=== PATIENT | female | born 1965 | race Caucasian/White ===

== ENCOUNTER 2022-10-18 16:34 | Inpatient (IN) ==
[2022-10-18] MEDS ORDERED: ADENOSINE IV SOLN 3 MG/ML 2 ML VIAL IV STA (16:59)
[2022-10-18] MEDS ORDERED: SODIUM CHLORIDE 0.9% 1000ML 1,000 ML IV SCH (17:00)
--- NOTE | 2022-10-18 17:03 | Emergency Department Note ---
Impression & Plan Acute hypoxemic respiratory failure, Multifocal pneumonia, SOB (shortness of breath), RSV (respiratory syncytial virus infection), Prolonged QT interval, SVT (supraventricular tachycardia), Acute dehydration, COPD exacerbation ED Provider Note NAME: JONATHAN HERNANDEZ AGE: 57 SEX: F : 1965 ARRIVES VIA: Walk-In INFORMANT: [Patient][, ] ED PROVIDER(S): [Kevin Knowles MD] Chief Complaint: SOB HPI: Patient presents due to concern for shortness of breath. The patient states that she has felt this way for approximately 4 days in duration. The patient denies any fevers. The patient is a smoker and does have a known history of COPD. 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 Patient has had shortness of breath with exertion no orthopnea no leg swelling no history of DVT or PE. The patient denies any recent surgeries procedures or hospitalizations. 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 They have had upper respiratory type symptoms but without a clear diagnosis. ROS: See HPI for pertinent positives and negatives. A total of 10 systems were reviewed and otherwise negative. Past medical history: See below Surgical history: See below Social history: See below Physical Exam: GENERAL: Moderate distresss, tachypnea EYE EXAM: Normal conjunctiva. PERRL, no anisocoria and EOM's grossly intact w/o pain. NECK: Supple, no nuchal rigidity, no adenopathy, non-tender. No signs of meningismus. FROM of the neck with good chin to chest and neck extension. No stridor. LUNGS: Scant wheezes, decreased BS through, tachypne noted. HEART: Tachycardic and regular, no MRG. ABDOMEN: Abdomen soft, non-tender, normo-active bowel sounds, no masses, no rebound or guarding. BACK: No CVA TTP. SKIN: No rashes and no bruising. UPPER EXTREMITIES: Upper extremities are grossly normal. LOWER EXTREMITIES: Grossly normal, no edema. NEURO EXAM: A&O x3, cranial nerves II-XII grossly intact, normal speech, moves all 4 extremities. Differential diagnoses: Reactive airway disease, pneumonia, pneumothorax, COPD, CHF, infections, cardiac ischemia, pulmonary embolism, musculoskeletal, gastrointestinal, as well as other pathologies. Course: Patient was seen and evaluated the bedside. Full history physical exam was performed. EKG interpreted by me SVT, rate of 171, normal axis, ST depressions in the lateral leads EKG interpreted by me Sinus tachycardia, rate of 161, prolonged QTC, normal axis, ST depressions in the lateral leads. EKG interpreted by me Sinus tachycardia, rate of 159, prolonged QTC, normal axis, ST depressions in the lateral leads. Imaging Studies: See Below Cardiac monitoring: An order was placed for continuous cardiac monitoring. The monitor shows a rate of 165 with tachycardic and regular rhythm. MDM: Patient was seen due to concern for shortness of breath. The patient's initial EKG did show a regular rhythm but was very tachycardic and then the patient did have an increase in her rate into the 230s and 240s. Regular monomorphic. The patient was given 6 of adenosine. The patient's rate did improve back into the 160s. It does appear regular and monomorphic maybe a sinus tachycardia at this time. Patient was ordered IV fluids breathing treatments Xopenex to avoid beta adrenergic stimulation. The patient was also ordered antibiotics and blood work. Patient did have blood cultures and lactate. The patient's blood work showed a white count of 18 with a normal H&H and platelet count. The patient's kidney function was unremarkable. Mild hypokalemia. RSV positive. Lactate and Pro-Jose normal. Chest x-ray does show possible pneumonia. The patient did require oxygenation with 2 L nasal cannula. Patient was reassessed multiple times and was clinically improving on exam. I did speak the on-call hospitalist Emma Albarran PA-C and the patient was admitted to the medicine service. Critical Care: I have personally spent 79 minutes of critical care time in direct management of this patient. This includes bedside care, interpretation of diagnostic studies, and testing, discussion with consultants, patient, and family members, and other require inpatient management activities. This 79 minutes is in excess of all separately billable procedures. 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 100 mcg-umeclid 1 ea inhalation DAILY 10/18/22 10/18/22 62.5 mcg-vilant 25 mcg inhalat.powder (Trelegy Ellipta) ipratropium 0.5 mg-albuterol 3 mg 3 ml inhalation Q6 PRN 10/18/22 10/18/22 (2.5 mg base)/3 mL nebulization cough,shortness of breath soln levalbuterol tartrate 45 1 puff inhalation Q4 PRN Wheezing 10/18/22 10/18/22 mcg/actuation aerosol inhaler Results & Data (ED) Vital Signs Vital Signs - 24 hr 10/18/22 16:46 Temperature 37.3 C Temperature Source Temporal Artery Scan Pulse Rate 167 H Pulse Rhythm Irregular Respiratory Rate 24 Respiratory Effort / Characteristics Non-Labored Respiratory Depth Normal Blood Pressure 131/73 Blood Pressure Mean 92 Blood Pressure Position Sitting Pulse Oximetry 87 L Oxygen Delivery Method Room Air Sepsis Recent Fever Within 48 Hours Yes Sepsis New/Unexplained Change in Mental Status No Sepsis Action Taken by Nursing Physician Notified Home Medications Current Medication List: was personally reviewed by me Laboratory Data Attestation: I reviewed the patient's lab results. Result diagrams: 10/19/22 07:39 10/20/22 06:06 Lab Results 10/18/22 10/18/22 10/18/22 Range/Units 17:00 17:00 17:00 WBC 18.87 H (4.8-10.8) K/ul RBC 5.23 H (3.93-5.22) M/uL Hgb 15.2 (12.0-16.0) g/dl Hct 44.0 (34.1-44.9) % MCV 84.1 (80.0-100.0) fL MCH 29.1 (25.0-34.0) pg MCHC 34.5 (32.0-36.0) g/dL RDW Std Deviation 41.6 (36.4-46.3) fL RDW Coeff of Tori 13.4 (11.5-14.5) % Plt Count 344 (130-400) K/uL MPV 9.6 (9.4-12.3) fL Immature Gran % (Auto) 0.5 % Neut % (Auto) 86.6 % Lymph % (Auto) 6.5 % [place] % (Auto) 5.9 % Eos % (Auto) 0.2 % Baso % (Auto) 0.3 % Neut # (Auto) 16.33 H (1.4-6.5) K/uL Lymph # (Auto) 1.23 (1.2-3.4) K/uL [place] # (Auto) 1.11 H (0.24-0.82) K/uL Eos # (Auto) 0.04 (0-0.50) K/uL Baso # (Auto) 0.06 (0-0.2) K/uL Immature Gran # (Auto) 0.10 H (0.00-0.02) K/uL PT 12.6 H (9.0-12.0) Seconds INR 1.2 H (0.9-1.1) Sodium 132 L (136-145) mmol/L Potassium 3.4 L (3.5-5.1) mmol/L Chloride 96 L (98-107) mmol/L Carbon Dioxide 23 (21-32) mmol/L Anion Gap 13 H (3-11) BUN 10 (6-23) mg/dl Creatinine 0.91 (0.6-1.2) mg/dl Est Cr Clr Drug Dosing 87.0 ml/min Est GFR ( Amer) 81.2 ml/min Est GFR (Non-Af Amer) 70.0 ml/min BUN/Creatinine Ratio 11.0 (10-20) Glucose 129 H (70-99(Fasting)) mg/dl Lactate (0.4-2.0) mmol/L Calcium 8.7 (8.5-10.1) mg/dl Magnesium 1.7 (1.7-2.4) mg/dl Total Bilirubin 0.7 (0.2-1.0) mg/dl AST 22 (13-39) U/L ALT 17 (7-52) U/L Alkaline Phosphatase 96 (34-104) U/L Troponin I High Sens 9.7 (0-14) pg/ml Total Protein 7.6 (6.0-8.3) gm/dl Albumin 3.9 (3.4-5.0) gm/dl Globulin 3.7 (2.5-4.0) gm/dl Albumin/Globulin Ratio 1.1 (0.9-2) Procalcitonin (0-0.5) ng/ml TSH (0.300-4.500) uIu/ml Adenovirus (PCR) (NotDetected) B. pertussis DNA (PCR) (NotDetected) B.parapertussis DNA PCR (NotDetected) C. pneumoniae DNA (PCR) (NotDetected) Coronavirus OC43 (PCR) (NotDetected) Coronavirus HKU1 (PCR) (NotDetected) Coronavirus 229E (PCR) (NotDetected) SARS-CoV-2 (PCR) (NotDetected) Coronavirus NL63 (PCR) (NotDetected) Human Metapneumovir PCR (NotDetected) Influenza Type A (PCR) (NotDetected) Influenza Type B (PCR) (NotDetected) M. pneumoniae (PCR) (NotDetected) Parainfluenza 1 (PCR) (NotDetected) Parainfluenza 2 (PCR) (NotDetected) Parainfluenza 3 (PCR) (NotDetected) Parainfluenza 4 (PCR) (NotDetected) RSV (PCR) (NotDetected) Entero/Rhino (PCR) (NotDetected) 10/18/22 10/18/22 10/18/22 Range/Units 17:00 17:00 17:00 WBC (4.8-10.8) K/ul RBC (3.93-5.22) M/uL Hgb (12.0-16.0) g/dl Hct (34.1-44.9) % MCV (80.0-100.0) fL MCH (25.0-34.0) pg MCHC (32.0-36.0) g/dL RDW Std Deviation (36.4-46.3) fL RDW Coeff of Tori (11.5-14.5) % Plt Count (130-400) K/uL MPV (9.4-12.3) fL Immature Gran % (Auto) % Neut % (Auto) % Lymph % (Auto) % [place] % (Auto) % Eos % (Auto) % Baso % (Auto) % Neut # (Auto) (1.4-6.5) K/uL Lymph # (Auto) (1.2-3.4) K/uL [place] # (Auto) (0.24-0.82) K/uL Eos # (Auto) (0-0.50) K/uL Baso # (Auto) (0-0.2) K/uL Immature Gran # (Auto) (0.00-0.02) K/uL PT (9.0-12.0) Seconds INR (0.9-1.1) Sodium (136-145) mmol/L Potassium (3.5-5.1) mmol/L Chloride (98-107) mmol/L Carbon Dioxide (21-32) mmol/L Anion Gap (3-11) BUN (6-23) mg/dl Creatinine (0.6-1.2) mg/dl Est Cr Clr Drug Dosing ml/min Est GFR ( Amer) ml/min Est GFR (Non-Af Amer) ml/min BUN/Creatinine Ratio (10-20) Glucose (70-99(Fasting)) mg/dl Lactate 1.2 (0.4-2.0) mmol/L Calcium (8.5-10.1) mg/dl Magnesium (1.7-2.4) mg/dl Total Bilirubin (0.2-1.0) mg/dl AST (13-39) U/L ALT (7-52) U/L Alkaline Phosphatase (34-104) U/L Troponin I High Sens (0-14) pg/ml Total Protein (6.0-8.3) gm/dl Albumin (3.4-5.0) gm/dl Globulin (2.5-4.0) gm/dl Albumin/Globulin Ratio (0.9-2) Procalcitonin 0.22 (0-0.5) ng/ml TSH 1.686 (0.300-4.500) uIu/ml Adenovirus (PCR) (NotDetected) B. pertussis DNA (PCR) (NotDetected) B.parapertussis DNA PCR (NotDetected) C. pneumoniae DNA (PCR) (NotDetected) Coronavirus OC43 (PCR) (NotDetected) Coronavirus HKU1 (PCR) (NotDetected) Coronavirus 229E (PCR) (NotDetected) SARS-CoV-2 (PCR) (NotDetected) Coronavirus NL63 (PCR) (NotDetected) Human Metapneumovir PCR (NotDetected) Influenza Type A (PCR) (NotDetected) Influenza Type B (PCR) (NotDetected) M. pneumoniae (PCR) (NotDetected) Parainfluenza 1 (PCR) (NotDetected) Parainfluenza 2 (PCR) (NotDetected) Parainfluenza 3 (PCR) (NotDetected) Parainfluenza 4 (PCR) (NotDetected) RSV (PCR) (NotDetected) Entero/Rhino (PCR) (NotDetected) 10/18/22 Range/Units 17:50 WBC (4.8-10.8) K/ul RBC (3.93-5.22) M/uL Hgb (12.0-16.0) g/dl Hct (34.1-44.9) % MCV (80.0-100.0) fL MCH (25.0-34.0) pg MCHC (32.0-36.0) g/dL RDW Std Deviation (36.4-46.3) fL RDW Coeff of Tori (11.5-14.5) % Plt Count (130-400) K/uL MPV (9.4-12.3) fL Immature Gran % (Auto) % Neut % (Auto) % Lymph % (Auto) % [place] % (Auto) % Eos % (Auto) % Baso % (Auto) % Neut # (Auto) (1.4-6.5) K/uL Lymph # (Auto) (1.2-3.4) K/uL [place] # (Auto) (0.24-0.82) K/uL Eos # (Auto) (0-0.50) K/uL Baso # (Auto) (0-0.2) K/uL Immature Gran # (Auto) (0.00-0.02) K/uL PT (9.0-12.0) Seconds INR (0.9-1.1) Sodium (136-145) mmol/L Potassium (3.5-5.1) mmol/L Chloride (98-107) mmol/L Carbon Dioxide (21-32) mmol/L Anion Gap (3-11) BUN (6-23) mg/dl Creatinine (0.6-1.2) mg/dl Est Cr Clr Drug Dosing ml/min Est GFR ( Amer) ml/min Est GFR (Non-Af Amer) ml/min BUN/Creatinine Ratio (10-20) Glucose (70-99(Fasting)) mg/dl Lactate (0.4-2.0) mmol/L Calcium (8.5-10.1) mg/dl Magnesium (1.7-2.4) mg/dl Total Bilirubin (0.2-1.0) mg/dl AST (13-39) U/L ALT (7-52) U/L Alkaline Phosphatase (34-104) U/L Troponin I High Sens (0-14) pg/ml Total Protein (6.0-8.3) gm/dl Albumin (3.4-5.0) gm/dl Globulin (2.5-4.0) gm/dl Albumin/Globulin Ratio (0.9-2) Procalcitonin (0-0.5) ng/ml TSH (0.300-4.500) uIu/ml Adenovirus (PCR) Not Detected (NotDetected) B. pertussis DNA (PCR) Not Detected (NotDetected) B.parapertussis DNA PCR Not Detected (NotDetected) C. pneumoniae DNA (PCR) Not Detected (NotDetected) Coronavirus OC43 (PCR) Not Detected (NotDetected) Coronavirus HKU1 (PCR) Not Detected (NotDetected) Coronavirus 229E (PCR) Not Detected (NotDetected) SARS-CoV-2 (PCR) Not Detected (NotDetected) Coronavirus NL63 (PCR) Not Detected (NotDetected) Human Metapneumovir PCR Not Detected (NotDetected) Influenza Type A (PCR) Not Detected (NotDetected) Influenza Type B (PCR) Not Detected (NotDetected) M. pneumoniae (PCR) Not Detected (NotDetected) Parainfluenza 1 (PCR) Not Detected (NotDetected) Parainfluenza 2 (PCR) Not Detected (NotDetected) Parainfluenza 3 (PCR) Not Detected (NotDetected) Parainfluenza 4 (PCR) Not Detected (NotDetected) RSV (PCR) DETECTED A* (NotDetected) Entero/Rhino (PCR) Not Detected (NotDetected) Administered Medications Acetaminophen (Acetaminophen 325 Mg Tab) 650 mg PO Q4H PRN PRN Reason: Pain or Fever Stop: 11/17/22 23:09 Last Admin: 10/19/22 16:54 Dose: 650 mg Documented By: SAMAN Enoxaparin Sodium (Enoxaparin Inj 40 Mg/0.4 Ml Syr) 40 mg SQ Q24H ULISES Stop: 11/18/22 05:59 Last Admin: 10/20/22 05:05 Dose: 40 mg Documented By: Admin: 10/19/22 05:19 Dose: 40 mg Documented By: ANTHONY Escitalopram Oxalate (Escitalopram Oxalate 10 Mg Tab) 10 mg PO QAM ULISES Stop: 11/18/22 08:59 Last Admin: 10/20/22 08:18 Dose: Not Given Documented By: Admin: 10/19/22 09:03 Dose: 10 mg Documented By: SAMAN Famotidine (Famotidine 20 Mg Tab) 20 mg PO HS PRN PRN Reason: Heartburn Stop: 11/17/22 23:09 Last Admin: 10/19/22 21:51 Dose: 20 mg Documented By: ANTHONY Fluticasone Furoate (Fluticasone Furoate 100mcg 14 Puffs/Inhaler) 1 puffs INH DAILY ULISES Stop: 11/18/22 08:59 Last Admin: 10/20/22 08:19 Dose: 1 puffs Documented By: Admin: 10/19/22 09:04 Dose: 1 puffs Documented By: SAMAN Guaifenesin/Codeine Phosphate (Guaifenesin/Codeine 100mg/10mg 5ml Udc) 10 ml PO Q6H PRN PRN Reason: Cough Stop: 11/18/22 01:27 Last Admin: 10/20/22 17:12 Dose: 10 ml Documented By: Admin: 10/20/22 05:13 Dose: 10 ml Documented By: Admin: 10/19/22 21:50 Dose: 10 ml Documented By: ANTHONY Ipratropium [place] (Ipratropium [place] Neb Soln 0.02% 2.5 Ml Vial) 0.5 mg INH QIDR PRN PRN Reason: sob/wheezing Stop: 11/17/22 23:09 Last Admin: 10/20/22 14:17 Dose: 0.5 mg Documented By: TIMA Levalbuterol HCl (Levalbuterol Tartrate 15 Gm Hfa.Aer.Ad) 1 puffs INH Q4 PRN PRN Reason: Wheezing Stop: 11/17/22 23:09 Last Admin: 10/20/22 13:24 Dose: 1 puffs Documented By: ASHIA Levalbuterol HCl (Levalbuterol Hcl 1.25 Mg/3 Ml Neb) 1.25 mg NEB Q4H PRN; Pro tocol PRN Reason: Shortness Of Breath Or Wheezing Stop: 11/17/22 23:09 Last Admin: 10/20/22 00:04 Dose: 1.25 mg Documented By: Admin: 10/19/22 02:39 Dose: 1.25 mg Documented By: HUMA Levalbuterol HCl (Levalbuterol Hcl 0.63 Mg/3 Ml Neb) 0.63 mg NEB QIDR PRN PRN Reason: sob/wheezing Stop: 11/17/22 23:09 Last Admin: 10/20/22 14:17 Dose: 0.63 mg Documented By: TIMA Potassium Chloride (Potassium Chloride Crtab 20 Meq Tabcr) 20 meq PO QAM ULISES Stop: 11/19/22 08:59 Last Admin: 10/20/22 10:33 Dose: 20 meq Documented By: DLN Prednisone (Prednisone 20 Mg Tab) 40 mg PO DAILY ULISES Stop: 11/19/22 11:44 Last Admin: 10/20/22 12:51 Dose: 40 mg Documented By: SETH Umeclidinium/Vilanterol (Umeclidinium/Vilanterol 62.5/25mcg 7 Puffs/Inhaler) 1 puffs INH DAILY ULISES Stop: 11/18/22 08:59 Last Admin: 10/20/22 08:19 Dose: 1 puffs Documented By: Admin: 10/19/22 09:04 Dose: 1 puffs Documented By: SAMAN Discontinued Medications Adenosine (Adenosine Iv Soln 3 Mg/Ml 2 Ml Vial) 6 mg IV NOW STA Stop: 10/18/22 17:00 Last Admin: 10/18/22 17:08 Dose: 6 mg Documented By: TARA Guaifenesin/Codeine Phosphate (Guaifenesin/Codeine 100mg/10mg 5ml Udc) 5 ml PO Q6H PRN PRN Reason: Cough Stop: 11/18/22 01:27 Last Admin: 10/19/22 09:51 Dose: 5 ml Documented By: Admin: 10/19/22 01:45 Dose: 5 ml Documented By: ANTHONY Sodium Chloride (Nss 1000ml) 1,000 mls @ 999 mls/hr IV .Q1H1M ULISES Stop: 10/18/22 18:00 Last Infusion: 10/18/22 18:25 Dose: 0 mls/hr Documented By: Admin: 10/18/22 17:24 Dose: 999 mls/hr Documented By: SALOMÓN Sodium Chloride (Nss 1000ml) 1,000 mls @ 999 mls/hr IV .Q1H1M ONE Stop: 10/18/22 18:15 Last Infusion: 10/18/22 18:25 Dose: 0 mls/hr Documented By: Admin: 10/18/22 17:24 Dose: 999 mls/hr Documented By: SALOMÓN Sodium Chloride (Nss 1000ml) 1,000 mls @ 999 mls/hr IV .Q1H1M ONE Stop: 10/18/22 19:16 Last Infusion: 10/18/22 19:47 Dose: 0 mls/hr Documented By: Admin: 10/18/22 18:46 Dose: 999 mls/hr Documented By: SALOMÓN Cefepime HCl (Maxipime) 2,000 mg in 20 mls @ 5 mls/min IV NOW STA; Protocol Stop: 10/18/22 18:41 Last Admin: 10/18/22 18:46 Dose: 5 mls/min Documented By: SALOMÓN Sodium Chloride (Nss 1000ml) 1,000 mls @ 125 mls/hr IV .Q8H ULISES Stop: 11/17/22 23:09 Last Infusion: 10/19/22 21:30 Dose: 0 mls/hr Documented By: Admin: 10/19/22 16:54 Dose: 125 mls/hr Documented By: Infusion: 10/19/22 16:54 Dose: 125 mls/hr Documented By: Admin: 10/19/22 09:08 Dose: 125 mls/hr Documented By: Infusion: 10/19/22 08:28 Dose: 125 mls/hr Documented By: Admin: 10/19/22 00:28 Dose: 125 mls/hr Documented By: ANTHONY Doxycycline Hyclate 100 mg/ (Dextrose) 110 mls @ 50 mls/hr IV Q12H ULISES Stop: 10/25/22 23:29 Last Admin: 10/20/22 12:52 Dose: Not Given Documented By: Infusion: 10/20/22 02:04 Dose: 0 mls/hr Documented By: Admin: 10/19/22 23:42 Dose: 50 mls/hr Documented By: Infusion: 10/19/22 13:47 Dose: 0 mls/hr Documented By: Admin: 10/19/22 11:07 Dose: 50 mls/hr Documented By: Infusion: 10/19/22 02:16 Dose: 0 mls/hr Documented By: Admin: 10/18/22 23:59 Dose: 50 mls/hr Documented By: NILSA Ceftriaxone Sodium 2,000 mg/ (Dextrose) 70 mls @ 100 mls/hr IV Q24H ULISES; Protocol Stop: 10/26/22 05:59 Last Infusion: 10/20/22 06:05 Dose: 0 mls/hr Documented By: Admin: 10/20/22 05:07 Dose: 100 mls/hr Documented By: Infusion: 10/19/22 06:01 Dose: 0 mls/hr Documented By: Admin: 10/19/22 05:21 Dose: 100 mls/hr Documented By: ANTHONY Magnesium Sulfate/Dextrose (Magnesium Sulfate / D5w) 1 gm in 100 mls @ 50 mls/hr IV ONE ONE Stop: 10/19/22 01:09 Last Infusion: 10/19/22 01:43 Dose: 0 mls/hr Documented By: Admin: 10/18/22 23:54 Dose: 50 mls/hr Documented By: NILSA Methylprednisolone 40 mg/ (Syringe) 0.64 mls @ 1.5 mls/min IV Q8H [facility] Stop: 11/18/22 05:59 Last Admin: 10/20/22 05:05 Dose: 1.5 mls/min Documented By: Admin: 10/19/22 21:50 Dose: 1.5 mls/min Documented By: Admin: 10/19/22 14:02 Dose: 1.5 mls/min Documented By: Admin: 10/19/22 05:19 Dose: 1.5 mls/min Documented By: ANTHONY Ioversol (Optiray 320 500ml) 125 ml IV ONCE ONE Stop: 10/18/22 22:48 Last Admin: 10/18/22 22:48 Dose: 112 ml Documented By: MALCOLM Ipratropium [place] (Ipratropium [place] Neb Soln 0.02% 2.5 Ml Vial) 0.5 mg INH QIDR ULISES Stop: 11/17/22 23:09 Last Admin: 10/20/22 11:11 Dose: Not Given Documented By: Admin: 10/20/22 05:17 Dose: 0.5 mg Documented By: Admin: 10/19/22 17:41 Dose: 0.5 mg Documented By: Admin: 10/19/22 14:54 Dose: 0.5 mg Documented By: Admin: 10/19/22 11:04 Dose: 0.5 mg Documented By: Admin: 10/19/22 07:40 Dose: 0.5 mg Documented By: Admin: 10/18/22 23:58 Dose: 0.5 mg Documented By: NILSA Levalbuterol HCl (Levalbuterol Hcl 1.25 Mg/3 Ml Neb) 1.25 mg NEB NOW STA; Protocol Stop: 10/18/22 17:16 Last Admin: 10/18/22 17:24 Dose: 1.25 mg Documented By: SALOMÓN Levalbuterol HCl (Levalbuterol Hcl 0.63 Mg/3 Ml Neb) 0.63 mg NEB QIDR ULISES Stop: 11/17/22 23:09 Last Admin: 10/20/22 11:11 Dose: Not Given Documented By: Admin: 10/20/22 05:17 Dose: 0.63 mg Documented By: Admin: 10/19/22 17:41 Dose: 0.63 mg Documented By: Admin: 10/19/22 14:55 Dose: 0.63 mg Documented By: Admin: 10/19/22 11:04 Dose: 0.63 mg Documented By: Admin: 10/19/22 07:40 Dose: 0.63 mg Documented By: Admin: 10/19/22 00:49 Dose: 0.63 mg Documented By: ASHLEE Methylprednisolone (Methylprednisolone 125 Mg/2 Ml Vial) 125 mg IV NOW STA Stop: 10/18/22 17:16 Last Admin: 10/18/22 17:24 Dose: 125 mg Documented By: SALOMÓN Potassium Chloride (Potassium Chloride 20 Meq/15 Ml Udc) 40 meq PO NOW STA Stop: 10/18/22 23:11 Last Admin: 10/18/22 23:54 Dose: 40 meq Documented By: NILSA Potassium Chloride (Potassium Chloride Crtab 20 Meq Tabcr) 40 meq PO NOW STA Stop: 10/19/22 10:52 Last Admin: 10/19/22 11:07 Dose: 40 meq Documented By: SAMAN Discharge Plan Visit Data Chief Complaint: Shortness of Breath/Dyspnea Stated Complaint: SOB, COUGH ED Provider: Kevin Knowles Discharge Problem: Acute hypoxemic respiratory failure, Multifocal pneumonia, SOB (shortness of breath), RSV (respiratory syncytial virus infection), Prolonged QT interval, SVT (supraventricular tachycardia), Acute dehydration, COPD exacerbation Patient Disposition: Admitted As Inpatient Discharge Instructions Interventions: ED Discharge Assessment Last Done: 10/18/22 23:12
[2022-10-18] MEDS ORDERED: LEVALBUTEROL HCL 1.25 MG/3 ML NEB NEB STA (17:15)
[2022-10-18] MEDS ORDERED: methylPREDNISolone 125 MG/2 ML VIAL IV STA (17:15)
[2022-10-18] MEDS ORDERED: SODIUM CHLORIDE 0.9% 1000ML 1,000 ML IV ONE ×2 (17:15→18:16)
[2022-10-18 17:26] LABS: Basophils # (auto) 0.06 K/uL (0-0.2); Basophils % (auto) 0.3 %; Eosinophils # (auto) 0.04 K/uL (0-0.50); Eosinophils % (auto) 0.2 %; Hemoglobin 15.2 g/dl (12.0-16.0); Immature Granulocytes % (auto) 0.5 %; Lymphocytes # (auto) 1.23 K/uL (1.2-3.4); Lymphocytes % (auto) 6.5 %; Mean Corpuscular Hemoglobin 29.1 pg (25.0-34.0); Mean Corpuscular Hgb Conc 34.5 g/dL (32.0-36.0); Mean Corpuscular Volume 84.1 fL (80.0-100.0); Mean Platelet Volume 9.6 fL (9.4-12.3); Monocytes # (auto) 1.11 K/uL (0.24-0.82); Monocytes % (auto) 5.9 %; Neutrophils # (auto) 16.33 K/uL (1.4-6.5); Neutrophils % (auto) 86.6 %; Platelet Count 344 K/uL (130-400); RDW Coefficient of Variation 13.4 % (11.5-14.5); RDW Standard Deviation 41.6 fL (36.4-46.3); Red Blood Count 5.23 M/uL (3.93-5.22); White Blood Count 18.87 K/ul (4.8-10.8)
--- NOTE | 2022-10-18 17:33 | XRay Report ---
XR chest 1V portable HISTORY: 57 years-old Female weakness acute weakness COMPARISON: None TECHNIQUE: AP view of the chest. FINDINGS: Cardiomediastinal and hilar silhouettes are within normal limits. Subtle mild right basilar densities . No pneumothorax, pleural effusion or overt pulmonary edema. Bones appear grossly intact. IMPRESSION: Subtle ill-defined right basilar opacities may be secondary to summation density. Airspac e disease could appear similarly. ACT 112: Negative or not required by law. The above report was generated using voice recognition software. It may contain grammatical, syntax o r spelling errors. Electronically signed by: Kali Tafoya M.D. 10/18/2022 5:30 PM
[2022-10-18 17:39] LABS: INR 1.2 (0.9-1.1); Prothrombin Time 12.6 Seconds (9.0-12.0)
[2022-10-18 17:56] LABS: Albumin Globulin Ratio 1.1 (0.9-2); Albumin Level 3.9 gm/dl (3.4-5.0); Bilirubin,Total 0.7 mg/dl (0.2-1.0); Calcium 8.7 mg/dl (8.5-10.1); Est GFR (African American) 81.2 ml/min; Globulin 3.7 gm/dl (2.5-4.0); Magnesium 1.7 mg/dl (1.7-2.4); Potassium 3.4 mmol/L (3.5-5.1); Total Protein 7.6 gm/dl (6.0-8.3)
[2022-10-18 17:57] LABS: Troponin I High Sensitivity 9.7 pg/ml (0-14)
[2022-10-18] MEDS ORDERED: CEFEPIME 2,000 MG/20 ML VIAL IV STA (18:38)
[2022-10-18 18:52] LABS: Adenovirus PCR Not Detected (NotDetected); Bordetella parapertussis PCR Not Detected (NotDetected); Bordetella pertussis PCR Not Detected (NotDetected); Chlamydia pneumoniae PCR Not Detected (NotDetected); Coronavirus 229E PCR Not Detected (NotDetected); Coronavirus CoV-2 (COVID19)PCR Not Detected (NotDetected); Coronavirus HKU1 PCR Not Detected (NotDetected); Coronavirus NL63 PCR Not Detected (NotDetected); Coronavirus OC43PCR Not Detected (NotDetected); Human Metapneumovirus PCR Not Detected (NotDetected); Influenza A PCR Not Detected (NotDetected); Influenza B PCR Not Detected (NotDetected); Mycoplasma pneumoniae PCR Not Detected (NotDetected); Parainfluenza Virus 1 PCR Not Detected (NotDetected); Parainfluenza Virus 2 PCR Not Detected (NotDetected); Parainfluenza Virus 3 PCR Not Detected (NotDetected); Parainfluenza Virus 4 PCR Not Detected (NotDetected); Rhinovirus/Enterovirus PCR Not Detected (NotDetected)
[2022-10-18 18:59] LABS: Respiratory Syncytial VirusPCR DETECTED (NotDetected)
[2022-10-18] MEDS ORDERED: OPTIRAY 320 500ml IV ONE (22:47)
[2022-10-18] MEDS ORDERED: LEVALBUTEROL TARTRATE 15 GM HFA.AER.AD INH PRN (23:10)
[2022-10-18] MEDS ORDERED: XOPENEX/ATROVENT 0.63mg/0.5MG NEB COMBO NEB SCH (23:10)
[2022-10-18] MEDS ORDERED: ONDANSETRON INJ 2 MG/ML 2 ML VIAL IV PRN (23:10)
[2022-10-18] MEDS ORDERED: POTASSIUM CHLORIDE 20 MEQ/15 ML UDC PO STA (23:10)
[2022-10-18] MEDS ORDERED: NITROGLYCERIN SL 0.4 MG/TAB TAB SL PRN (23:10)
[2022-10-18] MEDS ORDERED: METOPROLOL TARTRATE 1 MG/ML VIAL IV PRN (23:10)
[2022-10-18] MEDS ORDERED: ACETAMINOPHEN 325 MG TAB PO PRN (23:10)
[2022-10-18] MEDS ORDERED: MAGNESIUM SULFATE / D5W 1 GM/100 ML BAG IV ONE (23:10)
--- NOTE | 2022-10-18 23:45 | History and Physical Report ---
DATE OF ADMISSION: 10/18/2022. CHIEF COMPLAINT: Shortness of breath. HISTORY OF PRESENT ILLNESS: This is a 57-year-old female with past medical history significant for asthma, COPD, obstructive sleep apnea, reflex sympathetic dystrophy, history of tobacco use, comes because of shortness of breath, she says it is going on for the last 2 weeks. She was treated for bronchitis in last week of August with doxycycline and steroids, it improved, but the last 2 weeks, again she is having on and off fevers, shortness of breath, cough, bringing some phlegm, some generalized weakness, body aches. It is not getting better, so she came here and in the ER, she was 87% on room air, requiring 2 liters of oxygen and she was in SVT with a heart rate in 160s to 180s and she was given a dose of adenosine. Currently, heart rate is 130s. EKG showing sinus tachycardia. White count of 18,000. Her respiratory BioFire came back positive for RSV. She is saturating okay on 2 liters, resting comfortably. Denies any chest pain, no neck pain, no back pain, some headache, no blurred visions, has some runny nose, no sore throat. Appetite is down, but she is swallowing okay. Somewhat nauseous, no abdominal pain. She has A few episodes of diarrhea. No blood in stools. Normal bladder movements. No swelling in the legs. ALLERGIES: No known drug allergies. PAST MEDICAL HISTORY: As mentioned above. PAST SURGICAL HISTORY: Ligation of oviducts, left second fingertip amputation. MEDICATIONS: The patient is on Lexapro 20 mg p.o. daily, famotidine 20 mg p.o. at bedtime, Trelegy 1 inhalation daily, DuoNebs q. 6 hours p.r.n., levalbuterol, Xopenex q. 4 hours p.r.n. FAMILY HISTORY: Significant for mother has diabetes, AL, seizures, stroke, father has seizures sister has stroke, seizures. SOCIAL HISTORY: . Quit smoking in 2014, smoked 1.5 packs a day for 37 years. Alcohol occasional. Occasional marijuana as per Epic. REVIEW OF SYSTEMS: As per HPI. Rest of review of systems is negative. PHYSICAL EXAMINATION: GENERAL: The patient is of moderate build, not in acute distress. VITAL SIGNS: Temperature 37.3, pulse 132, respiratory rate 17, blood pressure 133/85, oxygen 94% on 2 liters. HEENT: Pupils equal, round and reactive to light. Oral mucosa moist. NECK: No JVD, no neck masses. CARDIOVASCULAR: S1 and S2 heard. Tachycardia. No murmurs. RESPIRATORY SYSTEM: Normal AP diameter. No accessory muscle use. No obvious wheezing, no crackles. ABDOMEN: Soft, bowel sounds present, nontender, no distention. CENTRAL NERVOUS SYSTEM: Cranial nerves II through XII grossly intact, nonfocal. EXTREMITIES: Lower extremities, pedal edema present, no erythema seen. LABORATORY DATA: WBC18, hemoglobin 15.2, hematocrit 44, platelets 344, PT 12.6, INR 1.2. Sodium 132, potassium 3.4, chloride 96, CO2 of 23, BUN 10, creatinine 0.9, serum glucose 129. Lactate 1.2, calcium 8.7, magnesium 1.7, total bilirubin 0.7, AST 22, ALT 17, alkaline phosphatase 96. Troponin I high sensitivity 9.7. Procalcitonin 0.22. TSH is 1.6. Respiratory BioFire, RSV positive. IMAGING DATA: Chest x-ray, subtle ill-defined right basilar opacity may be secondary to summation density; airspace disease could appear similarly. EKG: Sinus tachycardia at a rate of 171. ST-T abnormalities. ASSESSMENT AND PLAN: This is a 57-year-old female who presents with shortness of breath, found to be in supraventricular tachycardia. 1. Supraventricular tachycardia,possibly from respiratory illness. Received a dose of adenosine. Currently, heart rate in 130s, respiratory BioFire came back RSV positive. Chest x-ray looks okay. We will get CTA of the chest to rule out PE. We will place on IV Lopressor p.r.n. Echocardiogram. Initial cardiac enzymes is okay. Will follow with serial cardiac enzymes. N.p.o. after midnight. Consult cardiology in the a.m. Closely monitor in tele floor. RSV droplet precautions, supportive care, IV fluids. 2. Shortness of breath, hypoxia requiring 2 liters of oxygen.Mostly from rsv. Will follow ct chest 3. History of chronic obstructive pulmonary disease: Possible mild chronic obstructive pulmonary disease exacerbation from above. Place him on nebs around the clock andn steroids and empiric antibiotics for now. Home inhalers. Monitor the response. 4. History of depression: Continue Lexapro. 5. Obstructive sleep apnea: CPAP at bedtime. 6. Deep venous thrombosis prophylaxis: Placed on Lovenox. DISPOSITION: Closely monitor in the tele floor. Level 1 full code. Expect to discharge home and follow with family doctor. Job ID: [id number] [place]
[2022-10-18] MEDS: IPRATROPIUM BROMIDE NEB SOLN 0.02% 2.5 ML VIAL INH SCH (23:58)
[2022-10-18] MEDS: DOXYCYCLINE HYCLATE 100 MG in DEXTROSE 5% 100 ML IV SCH (23:59)
[2022-10-19] MEDS: SODIUM CHLORIDE 0.9% 1000ML 1,000 ML IV SCH ×3 (00:28→16:54)
[2022-10-19] MEDS: LEVALBUTEROL HCL 0.63 MG/3 ML NEB NEB SCH ×5 (00:49→17:41)
[2022-10-19] MEDS: guaiFENesin/CODEINE 100MG/10MG 5ML UDC PO PRN ×3 (01:45→21:50)
[2022-10-19] MEDS: LEVALBUTEROL HCL 1.25 MG/3 ML NEB NEB PRN (02:39)
[2022-10-19] MEDS: methylPREDNISolone 40 MG in SYRINGE 0 ML IV SCH ×3 (05:19→21:50)
[2022-10-19] MEDS: ENOXAPARIN INJ 40 MG/0.4 ML SYR SQ SCH (05:19)
[2022-10-19] MEDS: cefTRIAXone SODIUM 2,000 MG in DEXTROSE 5% 50 ML IV SCH (05:21)
[2022-10-19] MEDS: IPRATROPIUM BROMIDE NEB SOLN 0.02% 2.5 ML VIAL INH SCH ×4 (07:40→17:41)
[2022-10-19 07:49] LABS: Basophils # (auto) 0.03 K/uL (0-0.2); Basophils % (auto) 0.2 %; Hematocrit (blood only) 38.8 % (34.1-44.9); Hemoglobin 13.1 g/dl (12.0-16.0); Immature Granulocytes # (auto) 0.12 K/uL (0.00-0.02); Immature Granulocytes % (auto) 0.8 %; Lymphocytes # (auto) 0.81 K/uL (1.2-3.4); Lymphocytes % (auto) 5.7 %; Mean Corpuscular Hemoglobin 28.8 pg (25.0-34.0); Mean Corpuscular Hgb Conc 33.8 g/dL (32.0-36.0); Mean Corpuscular Volume 85.3 fL (80.0-100.0); Mean Platelet Volume 9.4 fL (9.4-12.3); Monocytes # (auto) 0.47 K/uL (0.24-0.82); Monocytes % (auto) 3.3 %; Neutrophils # (auto) 12.85 K/uL (1.4-6.5); Platelet Count 252 K/uL (130-400); RDW Coefficient of Variation 13.7 % (11.5-14.5); RDW Standard Deviation 42.8 fL (36.4-46.3); Red Blood Count 4.55 M/uL (3.93-5.22); White Blood Count 14.28 K/ul (4.8-10.8)
[2022-10-19 08:09] LABS: BUN Creatinine Ratio 16.9 (10-20); Calcium 8.1 mg/dl (8.5-10.1); Creatinine Clr Calc Pharmacy 133.2 ml/min; Est GFR (African American) 117.9 ml/min; Est GFR (Non-African American) 101.7 ml/min; Magnesium 2.2 mg/dl (1.7-2.4); Potassium 3.4 mmol/L (3.5-5.1)
[2022-10-19] MEDS ORDERED: NON-FORMULARY MEDICATION (Fluticasone-Umeclidin-Vilanter [Trelegy Ellipta] 100-62.5-25 mcg INH SCH (09:00)
--- NOTE | 2022-10-19 09:02 | CT Scan Report ---
CT ANGIOGRAM OF THE CHEST CLINICAL HISTORY: Atypical chest pain. Dyspnea. COMPARISON STUDY: Chest x-ray dated 10/18/2022. TECHNIQUE: Following the IV administration of 112 cc of Optiray 320, CT angiogram of the chest was pe rformed from the upper abdomen to the thoracic inlet utilizing the pulmonary embolus protocol. Images are reviewed in the axial, sagittal, and coronal planes. 3-D MIPS images are created and assessed. I V contrast was administered without complication. A dose lowering technique was utilized adhering to the principles of ALARA. CT DOSE: 572.14 mGy.cm FINDINGS: Thyroid: Imaged portions of the thyroid gland are normal in size and attenuation. Thoracic aorta: The thoracic aorta is normal in caliber and demonstrates 4-vessel variant arch anatom y. A diminutive right vertebral artery arises as the fourth branch from a diverticulum of Kommerell a nd courses posterior to the esophagus. No dissection is seen. Pulmonary vasculature: The pulmonary trunk is normal in caliber. There are no filling defects identif ied in main, lobar, or segmental pulmonary branches to suggest pulmonary embolus. Heart: The heart is top normal in size and without pericardial effusion. Lungs and pleural spaces: There is moderate to advanced emphysema. Patchy/nodular airspace consolidat ion is seen throughout both lungs, greatest in the lower lobes. No pleural effusion is identified. Th e trachea and central airways are clear. Foci of probable scarring are seen throughout both lungs. Th ere is diffuse peribronchial thickening. A small fat-containing Bochdalek hernia is noted on the left . Mediastinum: Mildly enlarged mediastinal lymph nodes measure up to 12 mm in short axis. Adelaida: Enlarged bilateral hilar nodes measure up to 14 mm in short axis. Axillae: There is no axillary lymphadenopathy. Upper abdomen: A small hiatal hernia is noted. Hepatic steatosis is suggested. Skeletal structures: The skeletal structures are osteopenic. Mild degenerative change is noted in the thoracic spine. No lytic or blastic bony lesions are seen. IMPRESSION: 1. There is no evidence of pulmonary embolus in the main, lobar, or segmental pulmonary arteries. 2. Patchy/nodular airspace consolidation is seen throughout both lungs, typical for multifocal pneumo cedrick. Clinical correlation will be required and radiographic follow-up to resolution is recommended. 3. Given the nodular configuration a follow-up chest CT in 3-4 months time is recommended to document complete resolution and assess the underlying lung parenchyma. 4. Emphysema. 5. Mildly enlarged mediastinal and hilar lymph nodes are likely reactive. 6. Diffuse peribronchial thickening suggests bronchitis/reactive airway disease. Clinical correlation will be required. 7. Additional findings as above. ACT 112: Negative or not required by law. Electronically signed by: Stephen Pereira M.D. 10/19/2022 8:59 AM
[2022-10-19] MEDS: ESCITALOPRAM OXALATE 10 MG TAB PO SCH (09:03)
--- NOTE | 2022-10-19 09:03 | Cardiology Consultation ---
Date of Consultation October 19, 2022 Assessment & Plan (1) SOB (shortness of breath): (2) RSV (respiratory syncytial virus infection): (3) Sinus tachycardia: (4) Prolonged QT interval: Plan Very pleasant 57-year-old female who presented to [facility] emergency department with shortness of breath. Patient was found to be positive for RSV. Currently requiring supplemental oxygen. Symptoms of shortness of breath remains but improved with duo nebs. At presentation patient was found to be in sinus tach with heart rates in the 160s. She was treated with adenosine. Heart rates now in the 80s. Patient asymptomatic. EKG this morning showed a sinus rhythm in the 80s with a prolonged QT of 515 ms. -Continue to monitor on telemetry. As needed Lopressor as needed. Heart rates remain elevated after acute illness phase consider addition of low-dose metoprolol succinate in the future. -Mild hypokalemia, replaced with 40 mEq of potassium this morning. Repeat BMP tomorrow. Potassium goal of 4.0 and mag goal at 2.0. Replete as needed. -Recommend RSV treatment per primary team. Supplemental o2 as needed. -Prolonged QTc seen on EKG this morning. Avoid QTc prolonging medications, including zofran. Will plan on repeating an EKG tomorrow morning. Replace electrolytes as stated above. Future considerations as an outpatient include genetic testing and an exercise stress echo. May need beta-gustavo. Case discussed with Dr. Schulz- will follow. Supervising Physician Co-Signing Physician Notes Patient seen examined the bedside. Feeling much better since admission. Cardiology consultation requested due to tachycardia. ECGs reviewed demonstrating sinus tach. Remains in sinus rhythm on telemetry with heart rate ranging from 80-100 bpm. No dysrhythmias recorded. Patient notes cough and shortness of breath for nearly 2 weeks. Diagnosed with RSV upper respiratory tract infection. Feeling fatigued currently. Resting comfortably. Satting 93% on room air. Denies orthopnea, PND, or edema. No personal history of coronary disease, congestive heart failure, or rheumatic fever as a child. Admits to significant smoking history with more than 30 pack years. Quit approximately 7 years ago. PE: VSS. Gen: NAD, AAO x3. Heart: Regular rhythm, normal S1-S2. No murmur. Lungs: Bilateral expiratory wheezing. Scattered rhonchi. Extremities: No clubbing, cyanosis, or edema. 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 ECGs on admission demonstrating sinus tachycardia likely due to acute RSV infection and volume depletion. Heart rate improved with IV hydration. ECG demonstrating prolonged QT interval. No dysrhythmias on telemetry. Recommend maintaining adequate electrolyte replacement and avoidance of medications with the potential to prolong the QT interval. A beta-gustavo will be considered as clinical course progresses. Outpatient genetic testing and stress testing recommended. History of Present Illness Reason for Consultation: Shortness of breath and tachycardia Requesting Physician: [facility] Attending Physician: Joanne Millan, History of Present Illness 57-year-old female who presented to [facility] emergency department due to shortness of breath x2 weeks. At the end of August she was treated for bronchitis and was placed on doxycycline and prednisone. Symptoms improved for short while but over the last 2 weeks she started develop ongoing fevers, shortness of breath, cough and generalized weakness/body aches. She was recently caring for her two twin grandchildren who were also positive for RSV. Patient wasfound to be hypoxic with an oxygen of 87% on room air. He was given supplemental O2. Patient was tachycardic on admission with heart rates in the 160s to 180s, ? SVT. Heart rate lowered to 130s with EKG showing sinus tach. Respiratory swab came back positive for RSV. EKG this morning showing sinus rhythm 87 bpm, prolonged QT of 550 ms. She denies any prior cardiac history. Patient was placed on IV Lopressor as needed. Echocardiogram pending. Initial high-sensitivity troponins unremarkable. Patient treated with 2 L of oxygen and placed on duo nebs. Labs: Mild hyponatremia, resolved (132>>139), hypokalemia, 3.4. Renal function stable. CTA of the chest 10/18: Pending Chest x-ray 10/18: No acute abnormalities. Echo 10/19: Pending Echo 08/06: LVEF 57% with no wall motion abnormalities. Grade 1 diastolic dysfunction. No significant valvular pathology. Tele: SR/ST 90-110s Upon entrance into the room patient resting comfortably in bed with HOB 60 degrees. No acute distress. Denies any chest pain. Ongoing shortness of breath with activity. +productive cough. No palpitations, dizziness, or syncope. Notes improvement in her breathing with use of neb treatments. Feeling "worn out", but overall slightly improved compared to admission. Past medical history: Asthma and COPD JAROCHO on CPAP History of tobacco use Reflux sympathetic dystrophy Allergies Allergy/AdvReac Type Severity Reaction Status Date / Time No Known Allergies Allergy Unverified 06/20/11 23:23 Home Medications Medication Instructions Recorded Confirmed Type escitalopram oxalate 10 mg tablet 10 mg PO QAM 10/18/22 10/18/22 History famotidine 20 mg tablet 20 mg PO HS PRN Heartburn 10/18/22 10/18/22 History fluticasone fur. 100 mcg-umeclid 1 ea inhalation DAILY 10/18/22 10/18/22 History 62.5 mcg-vilant 25 mcg inhalat.powder (Trelegy Ellipta) ipratropium 0.5 mg-albuterol 3 mg 3 ml inhalation Q6 PRN 10/18/22 10/18/22 History (2.5 mg base)/3 mL nebulization cough,shortness of breath soln levalbuterol tartrate 45 1 puff inhalation Q4 PRN Wheezing 10/18/22 10/18/22 History mcg/actuation aerosol inhaler Patient History Medical History (Updated 10/19/22 @ 11:20 by Joanne Millan DO) Asthma with COPD COPD (chronic obstructive pulmonary disease) JAROCHO (obstructive sleep apnea) Reflex sympathetic dystrophy of other specified site Social History (Updated 10/18/22 @ 17:03 by Kevin Knowles MD) Smoking Status: Former smoker Hx Alcohol Use: No Hx Substance Use: No Preferred Language: Barbadian Communication Ability: Effective Art Department Head Required: No Beliefs That Will Affect Care: None Current Living Situation: Family Feels Safe at Home: Yes Safety Concerns: Feels Safe At This Time Assistive Devices: Denture - Upper and Denture - Lower Review of Systems Review of Systems: All systems reviewed & are unremarkable except as noted in HPI & below Physical Exam Constitutional: WD/WN, vitals as above no acute distress Eyes: PERRL, conjunctivae normal, anicteric sclerae ENMT: external ear and nose normal, oropharynx normal Neck: normal visual inspection and trachea midline Respiratory: normal respiratory effort and + cough; no respiratory distress Auscultation: + rales (bibasilar); no rhonchi and no wheezes +Cough Cardiovascular: RRR, no murmur, no edema Rate/Rhythm: regular rate and regular rhythm Heart Sounds: normal S1 and normal S2 Vessels: no JVD Extremities: no edema Gastrointestinal (Abdomen): normal bowel sounds, soft, nontender, no hepatosplenomegaly Skin: no rashes, warm and dry Psychiatric: A+Ox3, euthymic affect Results & Data ([facility]) Vital Signs (Past 12 Hours) Vital Signs Temp Pulse Pulse Resp BP Pulse Ox O2 Del Method 10/19/22 07:42 36.4 C L 81 20 128/82 94 Nasal Cannula 10/19/22 07:40 84 18 96 Nasal Cannula 10/19/22 07:24 83 10/19/22 04:30 36.5 C 86 18 109/70 95 Nasal Cannula 10/19/22 00:30 112 H 10/19/22 02:40 101 H 96 Nasal Cannula 10/19/22 01:50 Room Air 10/19/22 00:18 36.4 C L 111 H 16 128/84 95 10/19/22 00:57 105 H 23 96 10/19/22 00:52 102 H 18 95 Nasal Cannula 10/19/22 00:00 99 H 17 127/81 99 10/18/22 21:00 112 H 21 123/77 94 Nasal Cannula O2 Flow Rate 10/19/22 07:42 2 10/19/22 07:40 2 10/19/22 07:24 10/19/22 04:30 2 10/19/22 00:30 10/19/22 02:40 2 10/19/22 01:50 2 10/19/22 00:18 10/19/22 00:57 2 10/19/22 00:52 2 10/19/22 00:00 10/18/22 21:00 2 Laboratory Results Cardiac Enzymes 10/18/22 10/19/22 Range/Units 17:00 07:39 AST 22 (13-39) U/L Troponin I High Sens 9.7 6.2 (0-14) pg/ml Coagulation 10/18/22 Range/Units 17:00 PT 12.6 H (9.0-12.0) Seconds CBC 10/18/22 10/19/22 Range/Units 17:00 07:39 WBC 18.87 H 14.28 H (4.8-10.8) K/ul RBC 5.23 H 4.55 (3.93-5.22) M/uL Hgb 15.2 13.1 (12.0-16.0) g/dl Hct 44.0 38.8 (34.1-44.9) % Plt Count 344 252 (130-400) K/uL Neut # (Auto) 16.33 H 12.85 H (1.4-6.5) K/uL Lymph # (Auto) 1.23 0.81 L (1.2-3.4) K/uL [place] # (Auto) 1.11 H 0.47 (0.24-0.82) K/uL Eos # (Auto) 0.04 0.00 (0-0.50) K/uL Baso # (Auto) 0.06 0.03 (0-0.2) K/uL Comprehensive Metabolic Panel 10/18/22 10/19/22 Range/Units 17:00 07:39 Sodium 132 L 139 (136-145) mmol/L Potassium 3.4 L 3.4 L (3.5-5.1) mmol/L Chloride 96 L 108 H (98-107) mmol/L Carbon Dioxide 23 24 (21-32) mmol/L BUN 10 10 (6-23) mg/dl Creatinine 0.91 0.59 L D (0.6-1.2) mg/dl Glucose 129 H 145 H (70-99(Fasting)) mg/dl Calcium 8.7 8.1 L (8.5-10.1) mg/dl AST 22 (13-39) U/L ALT 17 (7-52) U/L Alkaline Phosphatase 96 (34-104) U/L Total Protein 7.6 (6.0-8.3) gm/dl Albumin 3.9 (3.4-5.0) gm/dl Intake and Output 10/18/22 10/19/22 10/19/22 22:59 06:59 14:59 Intake Total 3000 / 3340 340 / 3340 1000 / 1000 Output Total 2 / 2 Balance 3000 / 3338 338 / 3338 1000 / 1000 Intake: IV 3000 / 3280 280 / 3280 1000 / 1000 Doxycycline Hyclate 100 mg In 110 / 110 Dextrose 5% 100 ml @ 50 mls/hr IV Q12H [facility] Rx#:[id number] Magnesium Sulfate / D5w 1 gm In 100 / 100 100 ml @ 50 mls/hr IV ONE ONE Rx#:[id number] Sodium Chloride 0.9% 1000ML 1, 3000 / 3000 1000 / 1000 000 ml @ 125 mls/hr IV .Q8H [facility] Rx#:[id number] cefTRIAXone SODIUM 2,000 mg In 70 / 70 Dextrose 5% 50 ml @ 100 mls/hr IV Q24H [facility] Rx#:[id number] Oral 60 / 60 Output: # Bowel Movements 2 / 2 Other: # Unmeasured Voids 3 Weight 95.8 kg 94.347 kg Weight Measurement Method Chair Scale Built in [facility]
[2022-10-19] MEDS: UMECLIDINIUM/VILANTEROL 62.5/25MCG 7 PUFFS/INHALER INH SCH (09:04)
[2022-10-19] MEDS: FLUTICASONE FUROATE 100MCG 14 PUFFS/INHALER INH SCH (09:04)
--- NOTE | 2022-10-19 10:43 | Electrocardiogram Report ---
Test Reason : Blood Pressure : / mmHG Vent. Rate : 171 BPM Atrial Rate : 171 BPM P-R Int : 124 ms QRS Dur : 076 ms QT Int : 286 ms P-R-T Axes : 076 062 078 degrees QTc Int : 482 ms Supraventricular tachycardia likely sinus Abnormal ECG No previous ECGs available Confirmed by Benigno Avila ([id number]) on 10/19/2022 10:43:07 AM Referred By: REFERRED SELF Confirmed By:Tesfaye Avila
--- NOTE | 2022-10-19 10:43 | Electrocardiogram Report ---
Test Reason : Blood Pressure : / mmHG Vent. Rate : 159 BPM Atrial Rate : 159 BPM P-R Int : 092 ms QRS Dur : 080 ms QT Int : 306 ms P-R-T Axes : 038 044 085 degrees QTc Int : 497 ms Poor data quality, interpretation may be adversely affected Sinus tachycardia Nonspecific ST and T wave abnormality Abnormal ECG When compared with ECG of 18-OCT-2022 17:09, (unconfirmed) No significant change was found Confirmed by Benigno Avila ([id number]) on 10/19/2022 10:43:21 AM Referred By: REFERRED SELF Confirmed By:Tesfaye Avila
--- NOTE | 2022-10-19 10:44 | Electrocardiogram Report ---
Test Reason : Blood Pressure : / mmHG Vent. Rate : 161 BPM Atrial Rate : 161 BPM P-R Int : 100 ms QRS Dur : 078 ms QT Int : 302 ms P-R-T Axes : 050 046 083 degrees QTc Int : 494 ms Poor data quality, interpretation may be adversely affected Sinus tachycardia Abnormal ECG When compared with ECG of 18-OCT-2022 16:55, (unconfirmed) No significant change was found Confirmed by Benigno Avila ([id number]) on 10/19/2022 10:43:59 AM Referred By: REFERRED SELF Confirmed By:Tesfaye Avila
[2022-10-19] MEDS ORDERED: POTASSIUM CHLORIDE CRTAB 20 MEQ TABCR PO STA (10:51)
--- NOTE | 2022-10-19 10:53 | Electrocardiogram Report ---
Test Reason : Blood Pressure : / mmHG Vent. Rate : 087 BPM Atrial Rate : 087 BPM P-R Int : 162 ms QRS Dur : 096 ms QT Int : 405 ms P-R-T Axes : 066 062 045 degrees QTc Int : 488 ms Normal sinus rhythm Abnormal ECG When compared with ECG of 18-OCT-2022 17:09, (unconfirmed) Vent. rate has decreased BY [address] no longer depressed in Lateral leads Nonspecific T wave abnormality no longer evident in Lateral leads Confirmed by Benigno Avila ([id number]) on 10/19/2022 10:52:41 AM Referred By: REFERRED SELF Confirmed By:Tesfaye Avila
[2022-10-19] MEDS: DOXYCYCLINE HYCLATE 100 MG in DEXTROSE 5% 100 ML IV SCH ×2 (11:07→23:42)
--- NOTE | 2022-10-19 11:21 | Hospitalist Progress Note ---
Date of Service October 19, 2022 Assessment & Plan (1) Multifocal pneumonia: Plan: With negative procalcitonin this may be secondary to RSV and be more of a viral pneumonia however we will continue broad-spectrum antibiotics for the time being pending culture results and clinical improvement. (2) COPD exacerbation: Plan: Secondary to RSV. Poor air movement on exam today but no bryant wheezing. Continue cough medication, nebulized bronchodilator therapy and intravenous Solu-Medrol. (3) RSV (respiratory syncytial virus infection): Plan: Continue supportive care including Robitussin with codeine as needed for cough, nebulized bronchodilator therapy, intravenous Solu-Medrol. (4) Prolonged QT interval: Plan: Likely related to her Lexapro started in May of this year. Repeat EKG in a.m. Withhold any other QTC prolonging medications such as ondansetron. (5) Sinus tachycardia: Plan: Received 1 dose of adenosine in the ER for a heart rate of 160. Heart rate improved with intravenous fluid. Cardiology saw patient who evaluated telemetry overnight with no dysrhythmias noted. Sinus tachycardia is attributed to acute RSV infection with volume depletion. (6) JAROCHO (obstructive sleep apnea): Plan: Chronic, continue CPAP at night (7) Depression: Plan: Chronic, stable. Continue Lexapro per home regimen. (8) DVT prophylaxis: Plan: Lovenox Full code Disposition-to home in next 2 to 3 days. Joanne Millan DO [facility] Hospitalist Admission and Anticipated Discharge Date Admission Date: October 18, 2022 Subjective 57-year-old female with history of COPD presented with worsening shortness of breath, tachycardia. She had been sick with RSV for a couple of weeks and reports getting worse on with malaise and fever. Today she reports feeling better. Heart rate is 102 and regular. She denies excessive coughing and states she is not back to baseline but she is feeling much better overall. She is a non-smoker. Notably she has a QTC of 515 ms. She reports starting Lexapro in May of this year. Review of Systems Review of Systems: All systems were reviewed and negative except as indicated above. Physical Exam Physical Exam: CONSTITUTIONAL: WNWD, vitals as above, generally well- appearing, NAD, not requiring oxygen supplementation, speaking in full sentences. EYES: normal conjunctivae, no scleral icterus ENT: external ear and nose normal, MMM NECK: trachea midline RESPIRATORY: decreased breath sounds throuhout, no crackles, rales or wheezes, normal respiratory effort CARDIOVASCULAR: regular rate and rhythm, S1 and 2 heard without murmurs, gallops or rubs, no JVD, no peripheral edema CHEST: inspection of chest was normal GASTROINTESTINAL: soft, nontender, ND, no guarding MUSCULOSKELETAL: strength 5/5 throughout, head is normocephalic and atraumatic SKIN: warm and dry NEUROLOGIC: CN 2-12 grossly intact, no sensory deficit, normal cognition, normal speech, no tremor PSYCHIATRIC: alert cooperative and oriented to person, place and time. Euthymic mood, makes good eye contact, language grossly intact, recent and r emote memory grossly intact. Results & Data Results & Data ([facility]) Vital Signs (Past 12 Hours) Vital Signs Temp Pulse Pulse Resp BP Pulse Ox O2 Del Method 10/19/22 11:05 102 H 18 95 Nasal Cannula 10/19/22 10:00 Nasal Cannula 10/19/22 07:42 36.4 C L 81 20 128/82 94 Nasal Cannula 10/19/22 07:40 84 18 96 Nasal Cannula 10/19/22 07:24 83 10/19/22 04:30 36.5 C 86 18 109/70 95 Nasal Cannula 10/19/22 00:30 112 H 10/19/22 02:40 101 H 96 Nasal Cannula 10/19/22 01:50 Room Air 10/19/22 00:18 36.4 C L 111 H 16 128/84 95 10/19/22 00:57 105 H 23 96 10/19/22 00:52 102 H 18 95 Nasal Cannula 10/19/22 00:00 99 H 17 127/81 99 O2 Flow Rate 10/19/22 11:05 2 10/19/22 10:00 2 10/19/22 07:42 2 10/19/22 07:40 2 10/19/22 07:24 10/19/22 04:30 2 10/19/22 00:30 10/19/22 02:40 2 10/19/22 01:50 2 10/19/22 00:18 10/19/22 00:57 2 10/19/22 00:52 2 10/19/22 00:00 Laboratory Results Short CBC 10/18/22 10/19/22 Range/Units 17:00 07:39 WBC 18.87 H 14.28 H (4.8-10.8) K/ul Hgb 15.2 13.1 (12.0-16.0) g/dl Hct 44.0 38.8 (34.1-44.9) % Plt Count 344 252 (130-400) K/uL BMP 10/18/22 10/19/22 17:00 07:39 Sodium 132 L 139 Potassium 3.4 L 3.4 L Chloride 96 L 108 H Carbon Dioxide 23 24 BUN 10 10 Creatinine 0.91 0.59 L D Glucose 129 H 145 H Calcium 8.7 8.1 L Liver Function 10/18/22 Range/Units 17:00 Total Bilirubin 0.7 (0.2-1.0) mg/dl AST 22 (13-39) U/L ALT 17 (7-52) U/L Alkaline Phosphatase 96 (34-104) U/L Albumin 3.9 (3.4-5.0) gm/dl Diagnostic Findings Chest CTA 10/18/22 20:28 CT ANGIOGRAM OF THE CHEST CLINICAL HISTORY: Atypical chest pain. Dyspnea. COMPARISON STUDY: Chest x-ray dated 10/18/2022. TECHNIQUE: Following the IV administration of 112 cc of Optiray 320, CT angiogram of the chest was performed from the upper abdomen to the thoracic inlet utilizing the pulmonary embolus protocol. Images are reviewed in the axial, sagittal, and coronal planes. 3-D MIPS images are created and assessed. IV contrast was administered without complication. A dose lowering technique was utilized adhering to the principles of ALARA. CT DOSE: 572.14 mGy.cm FINDINGS: Thyroid: Imaged portions of the thyroid gland are normal in size and attenuation. Thoracic aorta: The thoracic aorta is normal in caliber and demonstrates 4- vessel variant arch anatomy. A diminutive right vertebral artery arises as the fourth branch from a diverticulum of Komme[place] and courses posterior to the es ophagus. No dissection is seen. Pulmonary vasculature: The pulmonary trunk is normal in caliber. There are no filling defects identified in main, lobar, or segmental pulmonary branches to suggest pulmonary embolus. Heart: The heart is top normal in size and without pericardial effusion. Lungs and pleural spaces: There is moderate to advanced emphysema. Patchy/nodular airspace consolidation is seen throughout both lungs, greatest in the lower lobes. No pleural effusion is identified. The trachea and central airways are clear. Foci of probable scarring are seen throughout both lungs. There is diffuse peribronchial thickening. A small fat-containing Bochdalek hernia is noted on the left. Mediastinum: Mildly enlarged mediastinal lymph nodes measure up to 12 mm in short axis. Adelaida: Enlarged bilateral hilar nodes measure up to 14 mm in short axis. Axillae: There is no axillary lymphadenopathy. Upper abdomen: A small hiatal hernia is noted. Hepatic steatosis is suggested. Skeletal structures: The skeletal structures are osteopenic. Mild degenerative change is noted in the thoracic spine. No lytic or blastic bony lesions are seen. IMPRESSION: 1. There is no evidence of pulmonary embolus in the main, lobar, or segmental pulmonary arteries. 2. Patchy/nodular airspace consolidation is seen throughout both lungs, typical for multifocal pneumonia. Clinical correlation will be required and radiographic follow-up to resolution is recommended. 3. Given the nodular configuration a follow-up chest CT in 3-4 months time is recommended to document complete resolution and assess the underlying lung parenchyma. 4. Emphysema. 5. Mildly enlarged mediastinal and hilar lymph nodes are likely reactive. 6. Diffuse peribronchial thickening suggests bronchitis/reactive airway disease. Clinical correlation will be required. 7. Additional findings as above. ACT 112: Negative or not required by law. Electronically signed by: Stephen Pereira M.D. 10/19/2022 8:59 AM Medications Administered Current Inpatient Medications Acetaminophen (Acetaminophen 325 Mg Tab) 650 mg PO Q4H PRN PRN Reason: Pain or Fever Stop: 11/17/22 23:09 Enoxaparin Sodium (Enoxaparin Inj 40 Mg/0.4 Ml Syr) 40 mg SQ Q24H [facility] Stop: 11/18/22 05:59 Last Admin: 10/19/22 05:19 Dose: 40 mg Escitalopram Oxalate (Escitalopram Oxalate 10 Mg Tab) 10 mg PO QAM [facility] Stop: 11/18/22 08:59 Last Admin: 10/19/22 09:03 Dose: 10 mg Famotidine (Famotidine 20 Mg Tab) 20 mg PO HS PRN PRN Reason: Heartburn Stop: 11/17/22 23:09 Fluticasone Furoate (Fluticasone Furoate 100mcg 14 Puffs/Inhaler) 1 puffs INH DAILY [facility] Stop: 11/18/22 08:59 Last Admin: 10/19/22 09:04 Dose: 1 puffs Guaifenesin/Codeine Phosphate (Guaifenesin/Codeine 100mg/10mg 5ml Udc) 5 ml PO Q6H PRN PRN Reason: Cough Stop: 11/18/22 01:27 Last Admin: 10/19/22 09:51 Dose: 5 ml Sodium Chloride (Nss 1000ml) 1,000 mls @ 125 mls/hr IV .Q8H [facility] Stop: 11/17/22 23:09 Last Admin: 10/19/22 09:08 Dose: 125 mls/hr Doxycycline Hyclate 100 mg/ (Dextrose) 110 mls @ 50 mls/hr IV Q12H [facility] Stop: 10/25/22 23:29 Last Admin: 10/19/22 11:07 Dose: 50 mls/hr Ceftriaxone Sodium 2,000 mg/ (Dextrose) 70 mls @ 100 mls/hr IV Q24H [facility]; Protocol Stop: 10/26/22 05:59 Last Infusion: 10/19/22 06:01 Dose: Infused Methylprednisolone 40 mg/ (Syringe) 0.64 mls @ 1.5 mls/min IV Q8H [facility] Stop: 11/18/22 05:59 Last Admin: 10/19/22 05:19 Dose: 1.5 mls/min Influenza Virus Vaccine Quadrival (Fluarix Quadrivalent 0.5 Ml Syr) 0.5 ml IM .ONCE ONE Stop: 10/20/22 01:02 Ipratropium Roe (Ipratropium [place] Neb Soln 0.02% 2.5 Ml Vial) 0.5 mg INH QIDR [facility] Stop: 11/17/22 23:09 Last Admin: 10/19/22 11:04 Dose: 0.5 mg Levalbuterol HCl (Levalbuterol Tartrate 15 Gm Hfa.Aer.Ad) 1 puffs INH Q4 PRN PRN Reason: Wheezing Stop: 11/17/22 23:09 Levalbuterol HCl (Levalbuterol Hcl 1.25 Mg/3 Ml Neb) 1.25 mg NEB Q4H PRN; Protocol PRN Reason: Shortness Of Breath Or Wheezing Stop: 11/17/22 23:09 Last Admin: 10/19/22 02:39 Dose: 1.25 mg Levalbuterol HCl (Levalbuterol Hcl 0.63 Mg/3 Ml Neb) 0.63 mg NEB QIDR [facility]ISES Stop: 11/17/22 23:09 Last Admin: 10/19/22 11:04 Dose: 0.63 mg Metoprolol Tartrate (Metoprolol Tartrate 1 Mg/Ml Vial) 5 mg IV Q6 PRN PRN Reason: Tachycardia Stop: 11/17/22 23:09 Nitroglycerin (Nitroglycerin Sl 0.4 Mg/Tab Tab) 0.4 mg SL UD PRN PRN Reason: Chest Pain Stop: 11/17/22 23:09 Ondansetron HCl (Ondansetron Inj 2 Mg/Ml 2 Ml Vial) 4 mg IV Q6H PRN PRN Reason: Nausea Stop: 11/17/22 23:09 Umeclidinium/Vilanterol (Umeclidinium/Vilanterol 62.5/25mcg 7 Puffs/Inhaler) 1 puffs INH DAILY [facility] Stop: 11/18/22 08:59 Last Admin: 10/19/22 09:04 Dose: 1 puffs
[2022-10-19] MEDS: FAMOTIDINE 20 MG TAB PO PRN (21:51)
[2022-10-20] MEDS: LEVALBUTEROL HCL 1.25 MG/3 ML NEB NEB PRN (00:04)
[2022-10-20] MEDS ORDERED: FLUARIX QUADRIVALENT 0.5 ML SYR IM ONE (01:01)
[2022-10-20] MEDS: methylPREDNISolone 40 MG in SYRINGE 0 ML IV SCH (05:05)
[2022-10-20] MEDS: ENOXAPARIN INJ 40 MG/0.4 ML SYR SQ SCH (05:05)
[2022-10-20] MEDS: cefTRIAXone SODIUM 2,000 MG in DEXTROSE 5% 50 ML IV SCH (05:07)
[2022-10-20] MEDS: guaiFENesin/CODEINE 100MG/10MG 5ML UDC PO PRN ×3 (05:13→23:15)
[2022-10-20] MEDS: IPRATROPIUM BROMIDE NEB SOLN 0.02% 2.5 ML VIAL INH SCH ×2 (05:17→11:11)
[2022-10-20] MEDS: LEVALBUTEROL HCL 0.63 MG/3 ML NEB NEB SCH ×2 (05:17→11:11)
[2022-10-20 06:46] LABS: BUN Creatinine Ratio 20.9 (10-20); Calcium 8.4 mg/dl (8.5-10.1); Creatinine Clr Calc Pharmacy 118.3 ml/min; Est GFR (African American) 113.1 ml/min; Est GFR (Non-African American) 97.6 ml/min; Potassium 3.7 mmol/L (3.5-5.1)
[2022-10-20] MEDS: ESCITALOPRAM OXALATE 10 MG TAB PO SCH (08:18)
[2022-10-20] MEDS: UMECLIDINIUM/VILANTEROL 62.5/25MCG 7 PUFFS/INHALER INH SCH (08:19)
[2022-10-20] MEDS: FLUTICASONE FUROATE 100MCG 14 PUFFS/INHALER INH SCH (08:19)
--- NOTE | 2022-10-20 08:48 | Cardiology Progress Note ---
Date of Service October 20, 2022 Assessment & Plan (1) SOB (shortness of breath): (2) RSV (respiratory syncytial virus infection): (3) Sinus tachycardia: (4) Prolonged QT interval: Plan 57-year-old female who presented to [facility] emergency department with shortness of breath. Patient was found to be positive for RSV. Currently requiring supplemental oxygen. Symptoms of shortness of breath remains but improved with duo nebs. At presentation patient was found to be in sinus tach with heart rates in the 160s. She was treated with adenosine. Heart rates now in the 80s. Patient asymptomatic. EKG 10/19 showed a sinus rhythm in the 80s with a prolonged QT of 515 ms, QTC prolongation now resolved. -Continue to monitor on telemetry while inpatient. No Lopressor needed overnight or this morning. Heart rates averaging in the 90s. Should heart rates remain elevated after acute illness phase consider addition of low-dose metoprolol succinate in the future. -Trend BMP while inpatient. Potassium goal of 4.0 and mag goal at 2.0. 20 mEq of potassium chloride daily started today. -Recommend RSV treatment per primary team. Supplemental o2 as needed. -Prolonged QTc seen on EKG 10/19. Avoid QTc prolonging medications, including zofran. ? Lexapro as a potential cause. QTC prolongation resolved on EKG this am. Replace electrolytes as stated above. Future considerations as an outpatient include genetic testing and an exercise stress echo. May need beta- gustavo. Case discussed with Dr. Schulz-no further cardiac testing warranted at this time. Recommend following up in our clinic as an outpatient following discharge in about 4 to 6 weeks. Admission and Anticipated Discharge Date Admission Date: October 18, 2022 Subjective 57-year-old female who presented to [facility] emergency department with shortness of breath. Patient was found to be positive for RSV. Currently requiring supplemental oxygen. Symptoms of shortness of breath remains but improved with duo nebs. At presentation patient was found to be in sinus tach with heart rates in the 160s. She was treated with adenosine. EKG 10/19 showed a sinus rhythm in the 80s with a prolonged QT of 515 ms. Chart and telemetry reviewed only. Telemetry: Sinus rhythm/sinus tach 90s to 100s. EKG 10/20: Normal sinus rhythm, 90 bpm, QTC 451 ms. Results & Data ([facility]) Vital Signs (Past 12 Hours) Vital Signs Temp Pulse Pulse Resp BP Pulse Ox Pulse Ox 10/20/22 08:19 36.4 C L 81 19 104/67 94 10/20/22 04:30 36.3 C L 98 H 20 99/66 L 96 10/20/22 05:17 119 H 25 H 95 10/19/22 22:13 83 10/19/22 23:10 92 10/20/22 00:06 91 H 18 96 10/19/22 23:47 36.5 C 91 H 20 117/75 98 10/19/22 23:06 90 23 92 O2 Del Method O2 Del Method O2 Flow Rate 10/20/22 08:19 Nasal Cannula 2 10/20/22 04:30 Nasal Cannula 2 10/20/22 05:17 Nasal Cannula 3 10/19/22 22:13 10/19/22 23:10 CPAP 10/20/22 00:06 Room Air 10/19/22 23:47 Room Air 10/19/22 23:06 Laboratory Results Cardiac Enzymes 10/19/22 Range/Units 11:02 Troponin I High Sens 6.0 (0-14) pg/ml Comprehensive Metabolic Panel 10/20/22 Range/Units 06:06 Sodium 140 (136-145) mmol/L Potassium 3.7 (3.5-5.1) mmol/L Chloride 109 H (98-107) mmol/L Carbon Dioxide 23 (21-32) mmol/L BUN 14 (6-23) mg/dl Creatinine 0.67 (0.6-1.2) mg/dl Glucose 154 H (70-99(Fasting)) mg/dl Calcium 8.4 L (8.5-10.1) mg/dl Intake and Output 10/19/22 10/20/22 10/20/22 22:59 06:59 14:59 Intake Total 2330.833 / 3740.833 300 / 3740.833 Output Total 3 / 4 Balance 2330.833 / 3736.833 297 / 3736.833 Intake: IV 1969.833 / 3260.833 180 / 3260.833 Doxycycline Hyclate 100 mg In 110 / 220 Dextrose 5% 100 ml @ 50 mls/hr IV Q12H [facility] Rx#:[id number] Sodium Chloride 0.9% 1000ML 1, 1970.833 / 2970.833 000 ml @ 125 mls/hr IV .Q8H [facility] Rx#:[id number] cefTRIAXone SODIUM 2,000 mg In 70 / 70 Dextrose 5% 50 ml @ 100 mls/hr IV Q24H [facility] Rx#:[id number] Oral 360 / 480 120 / 480 Output: # Bowel Movements 3 / 4 Other: # Unmeasured Voids 1 2 Weight 96 kg Weight Measurement Method Built in [facility]
--- NOTE | 2022-10-20 09:20 | Electrocardiogram Report ---
Test Reason : Blood Pressure : / mmHG Vent. Rate : 098 BPM Atrial Rate : 098 BPM P-R Int : 150 ms QRS Dur : 094 ms QT Int : 354 ms P-R-T Axes : 077 060 061 degrees QTc Int : 451 ms Normal sinus rhythm Low voltage QRS Borderline ECG When compared with ECG of 19-OCT-2022 05:31, QT has shortened Confirmed by Benigno Avila ([id number]) on 10/20/2022 9:20:05 AM Referred By: REFERRED SELF Confirmed By:Tesfaye Avila
[2022-10-20] MEDS: POTASSIUM CHLORIDE CRTAB 20 MEQ TABCR PO SCH (10:33)
[2022-10-20] MEDS: predniSONE 20 MG TAB PO SCH (12:51)
[2022-10-20] MEDS: DOXYCYCLINE HYCLATE 100 MG in DEXTROSE 5% 100 ML IV SCH (12:52)
--- NOTE | 2022-10-20 13:59 | Hospitalist Progress Note ---
Date of Service October 20, 2022 Assessment & Plan (1) Multifocal pneumonia: Plan: With negative procalcitonin is likely 2/2 RSV/viral pneumonia. Cont abx for now. (2) COPD exacerbation: Plan: Secondary to RSV. Poor air movement on exam today but no bryant wheezing. Continue cough medication, nebulized bronchodilator therapy and steroids. (3) RSV (respiratory syncytial virus infection): Plan: Continue supportive care including Robitussin with codeine as needed for cough, nebulized bronchodilator therapy, intravenous Solu-Medrol. (4) Prolonged QT interval: Plan: Likely related to her Lexapro started in May of this year. Repeat EKG reveals improvement of this to 451ms. (5) Sinus tachycardia: Plan: Received 1 dose of adenosine in the ER for a heart rate of 160. Heart rate improved with intravenous fluid. Cardiology saw patient who evaluated telemetry overnight with no dysrhythmias noted. Sinus tachycardia is attributed to acute RSV infection with volume depletion. No further inpatient workup at this time. Followup with cardiology in clinic in 4-6 weeks. (6) JAROCHO (obstructive sleep apnea): Plan: Chronic, continue CPAP at night (7) Depression: Plan: Chronic, stable. Continue Lexapro per home regimen. (8) DVT prophylaxis: Plan: Lovenox Full code Disposition-to home in next 2 to 3 days. Joanne Millan DO [facility] Hospitalist Admission and Anticipated Discharge Date Admission Date: October 18, 2022 Subjective 57-year-old female who presented to [facility] emergency department with shortness of breath. Patient was found to be positive for RSV and with multifocal pneumonia on CT chest. Currently requiring supplemental oxygen but improved. Symptoms of shortness of breath and cough have improved. Still using nebulized bronchodilators and Robitussin AC. tachycardia has improved and she feels better overall. We discussed the issue of going home with oxygen, which she is understandably worried about because her only source of heat in her home in a wood stove. Review of Systems Review of Systems: All systems were reviewed and negative except as indicated above. Physical Exam Physical Exam: CONSTITUTIONAL: WNWD, vitals as above, generally well- appearing, NAD, speaking in full sentences. EYES: normal conjunctivae, no scleral icterus ENT: external ear and nose normal, MMM NECK: trachea midline RESPIRATORY: decreased breath sounds throughout with improved airflow, no crackles, rales or wheezes, normal respiratory effort CARDIOVASCULAR: regular rate and rhythm, S1 and 2 heard without murmurs, gallops or rubs, no JVD, no peripheral edema CHEST: inspection of chest was normal GASTROINTESTINAL: soft, nontender, ND, no guarding MUSCULOSKELETAL: strength 5/5 throughout, head is normocephalic and atraumatic SKIN: warm and dry NEUROLOGIC: CN 2-12 grossly intact, no sensory deficit, normal cognition, normal speech, no tremor PSYCHIATRIC: alert cooperative and oriented to person, place and time. Euthymic mood, makes good eye contact, language grossly intact, recent and remote memory grossly intact. Results & Data Results & Data ([facility]) Vital Signs (Past 12 Hours) Vital Signs Temp Pulse Pulse Resp BP Pulse Ox Pulse Ox 10/20/22 13:25 120 H 18 91 10/20/22 11:52 36.3 C L 74 16 117/74 93 10/20/22 09:47 98 H 10/20/22 09:47 10/20/22 09:47 94 10/20/22 08:19 36.4 C L 81 19 104/67 94 10/20/22 04:30 36.3 C L 98 H 20 99/66 L 96 10/20/22 05:17 119 H 25 H 95 O2 Del Method O2 Del Method O2 Flow Rate O2 Flow Rate 10/20/22 13:25 Room Air 10/20/22 11:52 Nasal Cannula 2 10/20/22 09:47 10/20/22 09:47 Nasal Cannula 2 10/20/22 09:47 Nasal Cannula 2 10/20/22 08:19 Nasal Cannula 2 10/20/22 04:30 Nasal Cannula 2 10/20/22 05:17 Nasal Cannula 3 Laboratory Results [facility] 10/20/22 06:06 Sodium 140 Potassium 3.7 Chloride 109 H Carbon Dioxide 23 BUN 14 Creatinine 0.67 Glucose 154 H Calcium 8.4 L Medications Administered Current Inpatient Medications Acetaminophen (Acetaminophen 325 Mg Tab) 650 mg PO Q4H PRN PRN Reason: Pain or Fever Stop: 11/17/22 23:09 Last Admin: 10/19/22 16:54 Dose: 650 mg Cefdinir (Cefdinir 300 Mg Cap) [address] [facility] Stop: 10/27/22 20:59 Doxycycline Hyclate (Doxycycline Hyclate 100 Mg Cap) 100 mg PO BID [facility] Stop: 10/27/22 20:59 Enoxaparin Sodium (Enoxaparin Inj 40 Mg/0.4 Ml Syr) 40 mg SQ Q24H [facility] Stop: 11/18/22 05:59 Last Admin: 10/20/22 05:05 Dose: 40 mg Escitalopram Oxalate (Escitalopram Oxalate 10 Mg Tab) 10 mg PO QAM [facility] Stop: 11/18/22 08:59 Last Admin: 10/20/22 08:18 Dose: Not Given Famotidine (Famotidine 20 Mg Tab) 20 mg PO HS PRN PRN Reason: Heartburn Stop: 11/17/22 23:09 Last Admin: 10/19/22 21:51 Dose: 20 mg Fluticasone Furoate (Fluticasone Furoate 100mcg 14 Puffs/Inhaler) 1 puffs INH DAILY [facility] Stop: 11/18/22 08:59 Last Admin: 10/20/22 08:19 Dose: 1 puffs Guaifenesin/Codeine Phosphate (Guaifenesin/Codeine 100mg/10mg 5ml Udc) 10 ml PO Q6H PRN PRN Reason: Cough Stop: 11/18/22 01:27 Last Admin: 10/20/22 05:13 Dose: 10 ml Ipratropium [place] (Ipratropium [place] Neb Soln 0.02% 2.5 Ml Vial) 0.5 mg INH QIDR PRN PRN Reason: sob/wheezing Stop: 11/17/22 23:09 Levalbuterol HCl (Levalbuterol Tartrate 15 Gm Hfa.Aer.Ad) 1 puffs INH Q4 PRN PRN Reason: Wheezing Stop: 11/17/22 23:09 Last Admin: 10/20/22 13:24 Dose: 1 puffs Levalbuterol HCl (Levalbuterol Hcl 1.25 Mg/3 Ml Neb) 1.25 mg NEB Q4H PRN; Protocol PRN Reason: Shortness Of Breath Or Wheezing Stop: 11/17/22 23:09 Last Admin: 10/20/22 00:04 Dose: 1.25 mg Levalbuterol HCl (Levalbuterol Hcl 0.63 Mg/3 Ml Neb) 0.63 mg NEB QIDR PRN PRN Reason: sob/wheezing Stop: 11/17/22 23:09 Nitroglycerin (Nitroglycerin Sl 0.4 Mg/Tab Tab) 0.4 mg SL UD PRN PRN Reason: Chest Pain Stop: 11/17/22 23:09 Potassium Chloride (Potassium Chloride Crtab 20 Meq Tabcr) [address] [facility] Stop: 11/19/22 08:59 Last Admin: 10/20/22 10:33 Dose: 20 meq Prednisone (Prednisone 20 Mg Tab) [address] [facility] Stop: 11/19/22 11:44 Last Admin: 10/20/22 12:51 Dose: 40 mg Umeclidinium/Vilanterol (Umeclidinium/Vilanterol 62.5/25mcg 7 Puffs/Inhaler) [address] [facility] Stop: 11/18/22 08:59 Last Admin: 10/20/22 08:19 Dose: 1 puffs
[2022-10-20] MEDS: IPRATROPIUM BROMIDE NEB SOLN 0.02% 2.5 ML VIAL INH PRN (14:17)
[2022-10-20] MEDS: LEVALBUTEROL HCL 0.63 MG/3 ML NEB NEB PRN (14:17)
[2022-10-20] MEDS: CEFDINIR 300 MG CAP PO SCH (20:01)
[2022-10-20] MEDS: DOXYCYCLINE HYCLATE 100 MG CAP PO SCH (20:01)
[2022-10-20] MEDS: FAMOTIDINE 20 MG TAB PO PRN (21:12)
[2022-10-21] MEDS: ENOXAPARIN INJ 40 MG/0.4 ML SYR SQ SCH (06:02)
[2022-10-21] MEDS: guaiFENesin/CODEINE 100MG/10MG 5ML UDC PO PRN ×2 (06:04→19:28)
[2022-10-21] MEDS: LEVALBUTEROL HCL 1.25 MG/3 ML NEB NEB PRN (07:39)
[2022-10-21] MEDS: IPRATROPIUM BROMIDE NEB SOLN 0.02% 2.5 ML VIAL INH PRN (07:39)
[2022-10-21] MEDS: CEFDINIR 300 MG CAP PO SCH ×2 (09:04→21:26)
[2022-10-21] MEDS: DOXYCYCLINE HYCLATE 100 MG CAP PO SCH ×2 (09:04→21:26)
[2022-10-21] MEDS: ESCITALOPRAM OXALATE 10 MG TAB PO SCH ×2 (09:05→09:08)
[2022-10-21] MEDS: UMECLIDINIUM/VILANTEROL 62.5/25MCG 7 PUFFS/INHALER INH SCH (09:05)
[2022-10-21] MEDS: predniSONE 20 MG TAB PO SCH (09:05)
[2022-10-21] MEDS: POTASSIUM CHLORIDE CRTAB 20 MEQ TABCR PO SCH (09:05)
[2022-10-21] MEDS: FLUTICASONE FUROATE 100MCG 14 PUFFS/INHALER INH SCH (09:06)
[2022-10-21 12:21] LABS: Hematocrit (blood only) 37.3 % (34.1-44.9); Hemoglobin 12.5 g/dl (12.0-16.0); Mean Corpuscular Hemoglobin 29.1 pg (25.0-34.0); Mean Corpuscular Hgb Conc 33.5 g/dL (32.0-36.0); Mean Corpuscular Volume 86.7 fL (80.0-100.0); Mean Platelet Volume 9.7 fL (9.4-12.3); Platelet Count 307 K/uL (130-400); RDW Coefficient of Variation 13.9 % (11.5-14.5); RDW Standard Deviation 44.4 fL (36.4-46.3); White Blood Count 13.24 K/ul (4.8-10.8)
[2022-10-21 12:42] LABS: BUN Creatinine Ratio 26.7 (10-20); Calcium 8.4 mg/dl (8.5-10.1); Creatinine Clr Calc Pharmacy 105.7 ml/min; Est GFR (African American) 102.6 ml/min; Est GFR (Non-African American) 88.5 ml/min; Potassium 3.9 mmol/L (3.5-5.1)
[2022-10-21] MEDS: LEVALBUTEROL HCL 0.63 MG/3 ML NEB NEB PRN (13:14)
--- NOTE | 2022-10-21 14:31 | Hospitalist Progress Note ---
Date of Service October 21, 2022 Assessment & Plan (1) Multifocal pneumonia: Plan: per Dr. Millan's notes with addendum: With negative procalcitonin is likely 2/2 RSV/viral pneumonia. Cont abx for now. 10/21 improving continue Cefdinir + Doxycycline (2) COPD exacerbation: Plan: Secondary to RSV. Poor air movement on exam today but no bryant wheezing. Continue cough medication, nebulized bronchodilator therapy and steroids. 10/21 add Xopenex/Atrovent Nebs q6h, Mucinex, IS, FV continue Prednisone improving gradually (3) RSV (respiratory syncytial virus infection): Plan: management per above (4) Prolonged QT interval: Plan: Likely related to her Lexapro started in May of this year. Repeat EKG reveals improvement of this to 451ms. (5) Sinus tachycardia: Plan: Received 1 dose of adenosine in the ER for a heart rate of 160. Heart rate improved with intravenous fluid. Cardiology saw patient who evaluated telemetry overnight with no dysrhythmias noted. Sinus tachycardia is attributed to acute RSV infection with volume depletion. No further inpatient workup at this time. Followup with cardiology in clinic in 4-6 weeks. 10/21 HR now <100 (6) JAROCHO (obstructive sleep apnea): Plan: Chronic, continue CPAP at night (7) Depression: Plan: Chronic, stable. Continue Lexapro per home regimen. (8) DVT prophylaxis: Plan: Lovenox Full code Disposition- anticipate d/c home in 1-2 days Admission and Anticipated Discharge Date Admission Date: October 18, 2022 Subjective ff up for COPD exacerbation, etc seen resting in bed, comfortable sitting up states breathing is improving still has dry cough, chest congestion dyspnea with exertion no other symptoms Review of Systems Review of Systems: all noted and negative except for above Physical Exam Physical Exam: General- oriented x 3, not in distress, speaks in sentences with no effort or accessory muscle use Eyes- anicteric Neck- no JVD Lungs- (+) faint wheeze BL Heart- normal rate, regular rhythm; no murmurs Abdomen- normal bowel sounds, nondistended, soft, nontender Extremities- no pretibial edema, no calf tenderness Neuro- alert, oriented x 3; no gross focal neurologic deficits Skin- warm & dry Results & Data Results & Data ([facility]) Vital Signs (Past 12 Hours) Vital Signs Temp Pulse Resp BP Pulse Ox O2 Del Method 10/21/22 07:40 67 18 94 Room Air 10/21/22 07:01 36.5 C 79 18 126/84 93 Room Air all noted and reviewed including below
[2022-10-21] MEDS ORDERED: XOPENEX/ATROVENT 1.25mg/0.5MG NEB COMBO NEB SCH (19:00)
[2022-10-21] MEDS: LEVALBUTEROL 1.25MG/0.5ML NEB INH SCH (19:19)
[2022-10-21] MEDS: IPRATROPIUM BROMIDE NEB SOLN 0.02% 2.5 ML VIAL INH SCH (19:19)
[2022-10-21] MEDS: FAMOTIDINE 20 MG TAB PO PRN (21:25)
[2022-10-21] MEDS: guaiFENesin 600 MG TABCR PO SCH (21:25)
[2022-10-22] MEDS: IPRATROPIUM BROMIDE NEB SOLN 0.02% 2.5 ML VIAL INH SCH ×4 (00:03→19:26)
[2022-10-22] MEDS: LEVALBUTEROL 1.25MG/0.5ML NEB INH SCH ×4 (00:03→19:27)
[2022-10-22] MEDS: ENOXAPARIN INJ 40 MG/0.4 ML SYR SQ SCH (06:09)
[2022-10-22] MEDS: guaiFENesin 600 MG TABCR PO SCH ×2 (08:21→20:01)
[2022-10-22] MEDS: DOXYCYCLINE HYCLATE 100 MG CAP PO SCH ×2 (08:21→20:01)
[2022-10-22] MEDS: ESCITALOPRAM OXALATE 10 MG TAB PO SCH ×2 (08:21→08:26)
[2022-10-22] MEDS: predniSONE 20 MG TAB PO SCH (08:21)
[2022-10-22] MEDS: CEFDINIR 300 MG CAP PO SCH ×2 (08:21→20:02)
[2022-10-22] MEDS: FLUTICASONE FUROATE 100MCG 14 PUFFS/INHALER INH SCH (08:22)
[2022-10-22] MEDS: UMECLIDINIUM/VILANTEROL 62.5/25MCG 7 PUFFS/INHALER INH SCH (08:22)
[2022-10-22 08:51] LABS: Creatinine Clr Calc Pharmacy 110.1 ml/min; Est GFR (African American) 107.7 ml/min
--- NOTE | 2022-10-22 17:20 | Hospitalist Progress Note ---
Date of Service October 22, 2022 Assessment & Plan (1) Multifocal pneumonia: Plan: per Dr. Millan's notes with addendum: With negative procalcitonin is likely 2/2 RSV/viral pneumonia. Cont abx for now. Sputum culture: Negative 10/22 Continues to improve Wheezing resolved continue Cefdinir + Doxycycline (2) COPD exacerbation: Plan: Secondary to RSV. Poor air movement on exam today but no bryant wheezing. Continue cough medication, nebulized bronchodilator therapy and steroids. 10/22 add Xopenex/Atrovent Nebs q6h, Mucinex, IS, FV continue Prednisone 40mg daily Continues to improve, wheezing resolved Anticipate discharge tomorrow (3) RSV (respiratory syncytial virus infection): Plan: management per above (4) Prolonged QT interval: Plan: Likely related to her Lexapro started in May of this year. Repeat EKG reveals improvement of this to 451ms. (5) Sinus tachycardia: Plan: Received 1 dose of adenosine in the ER for a heart rate of 160. Heart rate improved with intravenous fluid. Cardiology saw patient who evaluated telemetry overnight with no dysrhythmias noted. Sinus tachycardia is attributed to acute RSV infection with volume depletion. No further inpatient workup at this time. Followup with cardiology in clinic in 4-6 weeks. 10/22 HR now <100 (6) JAROCHO (obstructive sleep apnea): Plan: Chronic, continue CPAP at night (7) Depression: Plan: Chronic, stable. Continue Lexapro per home regimen. (8) DVT prophylaxis: Plan: Lovenox Full code Disposition- anticipate d/c home tomorrow Will order two-step exercise test Patient will also need new nebulizer machine Admission and Anticipated Discharge Date Admission Date: October 18, 2022 Subjective Follow-up for COPD exacerbation, pneumonia, RSV infection, etc. Seen resting in bed, comfortable, not in distress [place] tired this morning But breathing continues to improve Still has productive cough but improving No chest pain No other symptoms Review of Systems Review of Systems: all noted and negative except for above Physical Exam Physical Exam: General- oriented x 3, not in distress, speaks in sentences with no effort or accessory muscle use Eyes- anicteric Neck- no JVD Lungs- clear breath sounds bilaterally, no wheezing, no crackles Heart- normal rate, regular rhythm; no murmurs Abdomen- normal bowel sounds, nondistended, soft, no tenderness Extremities- no pretibial edema, no calf tenderness Neuro- alert, oriented x 3; no gross focal neurologic deficits Skin- warm & dry Results & Data Results & Data ([facility]) Vital Signs (Past 12 Hours) Vital Signs Temp Pulse Pulse Resp BP Pulse Ox O2 Del Method 10/22/22 16:00 36.6 C 85 20 130/76 92 Room Air 10/22/22 13:32 83 18 94 Room Air 10/22/22 08:13 Room Air 10/22/22 07:54 36.7 C 83 18 129/73 92 Room Air all noted and reviewed including below
[2022-10-22] MEDS: guaiFENesin/CODEINE 100MG/10MG 5ML UDC PO PRN (20:01)
[2022-10-22] MEDS: FAMOTIDINE 20 MG TAB PO PRN (20:02)
[2022-10-23] MEDS: IPRATROPIUM BROMIDE NEB SOLN 0.02% 2.5 ML VIAL INH SCH ×3 (00:23→13:28)
[2022-10-23] MEDS: LEVALBUTEROL 1.25MG/0.5ML NEB INH SCH ×3 (00:25→13:28)
[2022-10-23] MEDS: ENOXAPARIN INJ 40 MG/0.4 ML SYR SQ SCH (06:15)
[2022-10-23] MEDS: predniSONE 20 MG TAB PO SCH (08:04)
[2022-10-23] MEDS: guaiFENesin 600 MG TABCR PO SCH (08:04)
[2022-10-23] MEDS: DOXYCYCLINE HYCLATE 100 MG CAP PO SCH (08:04)
[2022-10-23] MEDS: CEFDINIR 300 MG CAP PO SCH (08:04)
[2022-10-23] MEDS: UMECLIDINIUM/VILANTEROL 62.5/25MCG 7 PUFFS/INHALER INH SCH (08:05)
[2022-10-23] MEDS: FLUTICASONE FUROATE 100MCG 14 PUFFS/INHALER INH SCH (08:05)
[2022-10-23] MEDS: ESCITALOPRAM OXALATE 10 MG TAB PO SCH (08:09)
--- NOTE | 2022-10-23 16:41 | Hospitalist Progress Note ---
Date of Service October 23, 2022 delayed entry date of service noted above Assessment & Plan (1) Multifocal pneumonia: Plan: per Dr. Millan's notes with addendum: Sputum culture: Negative Patient given cefdinir plus doxycycline Clinically improved, weaned off oxygen continue course of cefdinir + Doxycycline to complete 10 days (2) COPD exacerbation: Plan: Secondary to RSV. Required O2 by nasal cannula Given steroids, nebs, antibiotics per above Gradually weaned of oxygen Clinically improved continue Prednisone taper Cefdinir plus doxycycline to complete 10-day course Nebs as needed (3) RSV (respiratory syncytial virus infection): Plan: management per above (4) Prolonged QT interval: Plan: Likely related to her Lexapro started in May of this year. Repeat EKG reveals improvement of this to 451ms. (5) Sinus tachycardia: Plan: Received 1 dose of adenosine in the ER for a heart rate of 160. Heart rate improved with intravenous fluid. Cardiology saw patient who evaluated telemetry overnight with no dysrhythmias noted. Sinus tachycardia is attributed to acute RSV infection with volume depletion. No further inpatient workup at this time. Followup with cardiology in clinic in 4-6 weeks. (6) JAROCHO (obstructive sleep apnea): Plan: Chronic, continue CPAP at night (7) Depression: Plan: Chronic, stable. Continue Lexapro per home regimen. (8) DVT prophylaxis: Plan: Lovenox SC given Full code Disposition Discharge to home Follow-up with PCP in 1 week Admission and Anticipated Discharge Date Admission Date: October 18, 2022 Subjective Follow-up for CF exacerbation, pneumonia, etc. Seen resting in bed, comfortable, not distressed, in good spirits States she feels better overall No shortness of breath, very minimal cough No chest pain No other symptoms States she is ready for discharge today Review of Systems Review of Systems: all noted and negative except for above Physical Exam Physical Exam: General- oriented x 3, not in distress, speaks in sentences with no effort or accessory muscle use Eyes- anicteric Neck- no JVD Lungs- clear breath sounds bilaterally, no crackles or wheezing Heart- normal rate, regular rhythm; no murmurs Abdomen- normal bowel sounds, nondistended, soft, nontender Extremities- no pretibial edema, no calf tenderness Neuro- alert, oriented x 3; no gross focal neurologic deficits Skin- warm & dry Results & Data Results & Data ([place]) Vital Signs (Past 12 Hours) Vital Signs Temp Pulse Pulse Pulse Pulse Pulse Resp 10/23/22 13:30 82 18 10/23/22 12:10 36.7 C 82 81 18 10/23/22 08:10 94 H 80 82 10/23/22 07:26 81 18 10/23/22 06:36 36.7 C 82 20 Resp Resp Resp BP Pulse Ox Pulse Ox Pulse Ox 10/23/22 13:30 93 10/23/22 12:10 143/77 H 94 10/23/22 08:10 22 18 18 90 92 10/23/22 07:26 94 10/23/22 06:36 143/77 H 92 Pulse Ox O2 Del Method 10/23/22 13:30 Room Air 10/23/22 12:10 10/23/22 08:10 92 10/23/22 07:26 Room Air 10/23/22 06:36 Room Air all noted and reviewed including below
--- NOTE | 2022-10-25 18:16 | Discharge Summary ---
Discharge Summary Date of Service October 25, 2022 Notes For Next Care Provider Follow-up CT chest in 3 to 4 months to reevaluate nodular opacity seen on CT chest Medication Changes From Visit Cefdinir 300 mg twice daily Doxycycline 10 mg twice daily Prednisone taper Admission HPI Per Admitting Provider HISTORY OF PRESENT ILLNESS: This is a 57-year-old female with past medical history significant for asthma, COPD, obstructive sleep apnea, reflex sympathetic dystrophy, history of tobacco use, comes because of shortness of breath, she says it is going on for the last 2 weeks. She was treated for bronchitis in last week of August with doxycycline and steroids, it improved, but the last 2 weeks, again she is having on and off fevers, shortness of breath, cough, bringing some phlegm, some generalized weakness, body aches. It is not getting better, so she came here and in the ER, she was 87% on room air, requiring 2 liters of oxygen and she was in SVT with a heart rate in 160s to 180s and she was given a dose of adenosine. Currently, heart rate is 130s. EKG showing sinus tachycardia. White count of 18,000. Her respiratory BioFire came back positive for RSV. She is saturating okay on 2 liters, resting comfortably. Denies any chest pain, no neck pain, no back pain, some headache, no blurred visions, has some runny nose, no sore throat. Appetite is down, but she is swallowing okay. Somewhat nauseous, no abdominal pain. She has A few episodes of diarrhea. No blood in stools. Normal bladder movements. No swelling in the legs. Admission Exam Per Admitting Provider GENERAL: The patient is of moderate build, not in acute distress. VITAL SIGNS: Temperature 37.3, pulse 132, respiratory rate 17, blood pressure 133/85, oxygen 94% on 2 liters. HEENT: Pupils equal, round and reactive to light. Oral mucosa moist. NECK: No JVD, no neck masses. CARDIOVASCULAR: S1 and S2 heard. Tachycardia. No murmurs. RESPIRATORY SYSTEM: Normal AP diameter. No accessory muscle use. No obvious wheezing, no crackles. ABDOMEN: Soft, bowel sounds present, nontender, no distention. CENTRAL NERVOUS SYSTEM: Cranial nerves II through XII grossly intact, nonfocal. EXTREMITIES: Lower extremities, pedal edema present, no erythema seen. Principal Dx & Hospital Course #1 = Principal Diagnosis (1) Multifocal pneumonia: per Dr. Millan's notes with addendum: Sputum culture: Negative Patient given cefdinir plus doxycycline Clinically improved, weaned off oxygen continue course of cefdinir + Doxycycline to complete [address] report: Given the nodular configuration a follow-up chest CT in 3-4 months time is recommended to document complete resolution and assess the underlying lung parenchyma. (2) COPD exacerbation: Secondary to RSV. Required O2 by nasal cannula Given steroids, nebs, antibiotics per above Gradually weaned of oxygen Clinically improved continue Prednisone taper Cefdinir plus doxycycline to complete 10-day course Nebs as needed (3) RSV (respiratory syncytial virus infection): management per above (4) Prolonged QT interval: Likely related to her Lexapro started in May of this year. Repeat EKG reveals improvement of this to 451ms. (5) Sinus tachycardia: Received 1 dose of adenosine in the ER for a heart rate of 160. Heart rate improved with intravenous fluid. Cardiology saw patient who evaluated telemetry overnight with no dysrhythmias noted. Sinus tachycardia is attributed to acute RSV infection with volume depletion. No further inpatient workup at this time. Followup with cardiology in clinic in 4-6 weeks. (6) JAROCHO (obstructive sleep apnea): Chronic, continue CPAP at night (7) Depression: Chronic, stable. Continue Lexapro per home regimen. (8) DVT prophylaxis: Lovenox SC given Full code Disposition Discharge to home Follow-up with PCP in 1 week Discharge Exam General- oriented x 3, not in distress, speaks in sentences with no effort or accessory muscle use Eyes- anicteric Neck- no JVD Lungs- clear breath sounds bilaterally, no crackles or wheezing Heart- normal rate, regular rhythm; no murmurs Abdomen- normal bowel sounds, nondistended, soft, nontender Extremities- no pretibial edema, no calf tenderness Neuro- alert, oriented x 3; no gross focal neurologic deficits Skin- warm & dry Updated Medication List Medication Instructions Recorded Confirmed Type escitalopram oxalate 10 mg tablet 10 mg PO QAM 10/18/22 10/18/22 History famotidine 20 mg tablet 20 mg PO HS PRN Heartburn 10/18/22 10/18/22 History fluticasone fur. 100 mcg-umeclid 1 ea inhalation DAILY 10/18/22 10/18/22 History 62.5 mcg-vilant 25 mcg inhalat.powder (Trelegy Ellipta) cefdinir 300 mg capsule 300 mg PO BID 4 days #8 caps 10/23/22 Rx doxycycline hyclate 100 mg capsule 100 mg PO BID 4 days #8 caps 10/23/22 Rx guaifenesin 600 mg tablet, 1,200 mg PO Q12 7 days #28 tabs 10/23/22 Rx extended release 12 hr (Mucinex) ipratropium 0.5 mg-albuterol 3 mg 3 ml inhalation Q6 PRN 10/23/22 Rx (2.5 mg base)/3 mL nebulization cough,shortness of breath #20 mL soln levalbuterol tartrate 45 1 puff inhalation Q4 PRN Wheezing 10/23/22 Rx mcg/actuation aerosol inhaler #20 grams prednisone 10 mg tablet 10 mg PO UD #9 tabs 10/23/22 Rx Hospital Stay Data Consultations 10/18/22 18:39 ED Decision to Admit Stat 10/19/22 08:00 Consult Cardiology Routine Diagnostic Imagining Performed 10/18/22 20:28 CT angio chest PE protocol Stat CT ANGIOGRAM OF THE CHEST CLINICAL HISTORY: Atypical chest pain. Dyspnea. COMPARISON STUDY: Chest x-ray dated 10/18/2022. TECHNIQUE: Following the IV administration of 112 cc of Optiray 320, CT angiogram of the chest was performed from the upper abdomen to the thoracic inlet utilizing the pulmonary embolus protocol. Images are reviewed in the axial, sagittal, and coronal planes. 3-D MIPS images are created and assessed. IV contrast was administered without complication. A dose lowering technique was utilized adhering to the principles of ALARA. CT DOSE: 572.14 mGy.cm FINDINGS: Thyroid: Imaged portions of the thyroid gland are normal in size and a ttenuation. Thoracic aorta: The thoracic aorta is normal in caliber and demonstrates 4- vessel variant arch anatomy. A diminutive right vertebral artery arises as the fourth branch from a diverticulum of Kom[place] and courses posterior to the esophagus. No dissection is seen. Pulmonary vasculature: The pulmonary trunk is normal in caliber. There are no filling defects identified in main, lobar, or segmental pulmonary branches to suggest pulmonary embolus. Heart: The heart is top normal in size and without pericardial effusion. Lungs and pleural spaces: There is moderate to advanced emphysema. Patchy/nodular airspace consolidation is seen throughout both lungs, greatest in the lower lobes. No pleural effusion is identified. The trachea and central airways are clear. Foci of probable scarring are seen throughout both lungs. There is diffuse peribronchial thickening. A small fat-containing Bochdalek hernia is noted on the left. Mediastinum: Mildly enlarged mediastinal lymph nodes measure up to 12 mm in short axis. Adelaida: Enlarged bilateral hilar nodes measure up to 14 mm in short axis. Axillae: There is no axillary lymphadenopathy. Upper abdomen: A small hiatal hernia is noted. Hepatic steatosis is suggested. Skeletal structures: The skeletal structures are osteopenic. Mild degenerative change is noted in the thoracic spine. No lytic or blastic bony lesions are seen. IMPRESSION: 1. There is no evidence of pulmonary embolus in the main, lobar, or segmental pulmonary arteries. 2. Patchy/nodular airspace consolidation is seen throughout both lungs, typical for multifocal pneumonia. Clinical correlation will be required and radiographic follow-up to resolution is recommended. 3. Given the nodular configuration a follow-up chest CT in 3-4 months time is recommended to document complete resolution and assess the underlying lung parenchyma. 4. Emphysema. 5. Mildly enlarged mediastinal and hilar lymph nodes are likely reactive. 6. Diffuse peribronchial thickening suggests bronchitis/reactive airway disease. Clinical correlation will be required. 7. Additional findings as above. ACT 112: Negative or not required by law. Electronically signed by: Stephen Pereira M.D. 10/19/2022 8:59 AM Dictated:10/19/2252 Transcribed: 10/19/22851 Pending Results Patient Have Any Pending Studies at Discharge: No Discharge Instructions Given to Patient (Per Discharging Provider) PLEASE REFER TO YOUR NEW MEDICATION LIST AND FOLLOW INSTRUCTIONS CAREFULLY. YOUR NEW MEDICATIONS INCLUDE: Cefdinir, doxycycline-antibiotics for pneumonia Take a probiotic daily for 1 month. Prednisone taper as follows- Take 30 mg daily x1 day, then Take 20 mg p.o. daily x2 days, then Take 10 mg p.o. daily x2 days, then stop Give albuterol/ipratropium nebulizer treatment-as needed for shortness of breath or wheezing Mucinex-for cough PLEASE CALL YOUR PRIMARY CARE PHYSICIAN OR RETURN TO THE ER IF WITH WORSENING OF SYMPTOMS, INCLUDING Worsening of cough, shortness of breath, chest pain, fevers or chills, etc. FOLLOW UP WITH PRIMARY CARE PHYSICIAN OUTLINED ABOVE. Total Time Total Time Spent Total Time Spent (In Minutes): >30 minutes
--- NOTE | 2022-10-30 14:09 | Coding Query ---
To promote full compliance with coding requirements relating to patient care, provider participation is requested in all cases of medical records coder uncertainty. Please assist us with the question(s) below: Coding Question(s): The diagnosis below was documented in the ER H&P, then subsequently fell off all further documentation. Please indicate if it is still a possible diagnosis or ruled out. Physician's Response(s): ACUTE HYPOXEMIC RESPIRATORY FAILURE ( x) Diagnosed and POA ( ) Diagnosed and not POA ( ) Ruled out ( ) Other (please specify) MTDD
== END 2022-10-23 14:59 | disposition home or self-care (01) | DRG 193 ==
LOC: ED 16:34 → SUATTDRO 20:28 → EDINP 20:28 → 2S 23:12 → 3N 10-20 18:34
DX: E87.6 Hypokalemia; Z79.899 Other long term (current) drug therapy; I47.1 Supraventricular tachycardia; Z87.891 Personal history of nicotine dependence; R91.8 Other nonspecific abnormal finding of lung field; T43.225A Adverse effect of selective serotonin reuptake inhibitors, initial encounter; E86.0 Dehydration; R94.31 Abnormal electrocardiogram [ECG] [EKG]; J18.9 Pneumonia, unspecified organism; J12.1 Respiratory syncytial virus pneumonia; B97.4 Respiratory syncytial virus as the cause of diseases classified elsewhere; J44.0 Chronic obstructive pulmonary disease with (acute) lower respiratory infection; F32.A Depression, unspecified; G47.33 Obstructive sleep apnea (adult) (pediatric); J44.1 Chronic obstructive pulmonary disease with (acute) exacerbation; J96.01 Acute respiratory failure with hypoxia

== ENCOUNTER 2023-01-26 17:36 | Inpatient (IN) ==
[2023-01-26 18:36] LABS: Basophils # (auto) 0.07 K/uL (0-0.2); Basophils % (auto) 0.8 %; Eosinophils # (auto) 0.24 K/uL (0-0.50); Eosinophils % (auto) 2.9 %; Hemoglobin 16.6 g/dl (12.0-16.0); Immature Granulocytes # (auto) 0.03 K/uL (0.01-0.20); Immature Granulocytes % (auto) 0.4 %; Lymphocytes # (auto) 1.73 K/uL (1.2-3.4); Lymphocytes % (auto) 20.6 %; Mean Corpuscular Hemoglobin 28.6 pg (25.0-34.0); Mean Corpuscular Hgb Conc 33.9 g/dL (32.0-36.0); Mean Corpuscular Volume 84.5 fL (80.0-100.0); Mean Platelet Volume 9.3 fL (9.4-12.4); Monocytes # (auto) 0.84 K/uL (0.11-0.59); Neutrophils % (auto) 65.3 %; Platelet Count 274 K/uL (130-400); RDW Coefficient of Variation 15.5 % (11.5-14.5); RDW Standard Deviation 46.5 fL (36.4-46.3); White Blood Count 8.41 K/ul (4.8-10.8)
[2023-01-26 18:41] LABS: Albumin Globulin Ratio 1.3 (0.9-2); Albumin Level 4.3 gm/dl (3.4-5.0); BUN Creatinine Ratio 20.6 (10-20); Bilirubin,Total 0.9 mg/dl (0.2-1.0); Calcium 9.8 mg/dl (8.5-10.1); Creatinine Clr Calc Pharmacy 77.8 ml/min; Est GFR (African American) 70.7 ml/min; Globulin 3.4 gm/dl (2.5-4.0); Potassium 3.6 mmol/L (3.5-5.1); Total Protein 7.7 gm/dl (6.0-8.3)
[2023-01-26 18:46] LABS: Troponin I High Sensitivity 3.7 pg/ml (0-14)
[2023-01-26 18:50] LABS: Partial Thromboplastin Time 27.9 Seconds (21.0-31.0); Prothrombin Time 11.1 Seconds (9.0-12.0)
--- NOTE | 2023-01-26 19:29 | Emergency Department Note ---
Impression & Plan Exertional dyspnea, Abnormal cardiovascular stress test ED Provider Note INFORMANT: Patient ED PROVIDER(S): Ashutosh Harvey DO CHIEF COMPLAINT: abnormal stress test, exertional dyspnea PLAN: Disposition: admission Outpatient prescription management: none Discussion with: I spoke with the hospitalist, who will see the patient for admission/observation and further evaluation and consultation. MEDICAL DECISION MAKING: This is a 57-year-old female who presents to the ED with a chief complaint of an abnormal stress test today. The patient was told to come to the ED for admission for cardiac cath tomorrow. The patient's echo showed severely reduced LV systolic function in a pattern concerning for significant CAD. The patient had shortness of breath walking to the echo lab today. She does report exertional dyspnea. This has been ongoing since September. Her stress test today was a follow-up on her admission from September. She was told to come to the ED for likely cardiac cath. The patient is denying any chest pains at this time. She has no shortness of breath at this time either. Lung sounds are clear. Physical exam was unremarkable. She does have history of smoking but quit 5 years ago. Her initial heart rate At triage was 132. Twelve-lead EKG shows a sinus rhythm at a rate of 108 with a PVC. CBC did not reveal anemia or leukocytosis. Chemistry panel showed no electrolyte abnormality or kidney dysfunction. Troponin was negative for myocarditis or myocardial ischemia. chest x-ray: Did not show acute process. The patient was told the results. I spoke with the hospitalist, who will see the patient for further inpatient evalu ation and care. Triage Nursing notes reviewed. Vital Signs: reviewed Prior /Outside records reviewed: [facility] records from today. Differential diagnosis: Myocardial infarction, myocarditis, myocardial ischemia, COPD, pneumonia, PE, other. Diagnostics, as interpreted by me: 12 lead ECG: Sinus rhythm 108. PVC. No ST elevation. normal QTc. Cardiac Monitoring ordered: Sinus rhythm in the 90s. Medical decision rules: none Imaging studies: chest x-ray: No acute disease. No pneumonia or pneumothorax. Procedures: none. Critical care: none. HPI: See MDM above. PAST MEDICAL HISTORY: See Below PAST SURGICAL HISTORY: See Below SOCIAL HISTORY: See Below HOME MEDICATIONS: See Below ALLERGIES: See Below VITALS: See Below PHYSICAL EXAMINATION: See MDM for positive findings otherwise unremarkable. CONSTITUTIONAL/VITAL SIGNS: Reviewed GENERAL:done as appropriate INTEGUMENTARY: done as appropriate HEAD: done as appropriate EYES: done as appropriate RESPIRATORY: done as appropriate CARDIOVASCULAR:done as appropriate GI/ABDOMEN:done as appropriate EXTREMITIES: done as appropriate NEUROLOGICAL: done as appropriate PSYCHIATRIC:done as appropriate MUSCULOSKELETAL:done as appropriate TRIAGE NURSING DOCUMENTATION REVIEWED. Past Med/Surg History Medical History Asthma with COPD COPD (chronic obstructive pulmonary disease) JAROCHO (obstructive sleep apnea) Reflex sympathetic dystrophy of other specified site Social History Smoking Status: Never smoker Hx Alcohol Use: No Hx Substance Use: No Preferred Language: Kazakh Communication Ability: Effective Tourist Escort Required: No Beliefs That Will Affect Care: None Current Living Situation: Family Feels Safe at Home: Yes Assistive Devices: None Allergies Allergies Allergy/AdvReac Type Severity Reaction Status Date / Time No Known Allergies Allergy Unverified 06/20/11 23:23 Home Meds Home Medications Medication Instructions Recorded Confirmed escitalopram oxalate 10 mg tablet 10 mg PO QAM 10/18/22 10/18/22 famotidine 20 mg tablet 20 mg PO HS PRN Heartburn 10/18/22 10/18/22 fluticasone fur. 100 mcg-umeclid 1 ea inhalation DAILY 10/18/22 10/18/22 62.5 mcg-vilant 25 mcg inhalat.powder (Trelegy Ellipta) Previous Rx's Medication Instructions Recorded ipratropium 0.5 mg-albuterol 3 mg 3 ml inhalation Q6 PRN 10/23/22 (2.5 mg base)/3 mL nebulization cough,shortness of breath #20 mL soln levalbuterol tartrate 45 1 puff inhalation Q4 PRN Wheezing 10/23/22 mcg/actuation aerosol inhaler #20 grams prednisone 10 mg tablet 10 mg PO UD #9 tabs 10/23/22 Results & Data (ED) Vital Signs Vital Signs - 24 hr 01/26/23 17:38 Temperature 36.6 C Temperature Source Temporal Artery Scan Pulse Rate 132 H Respiratory Rate 19 Respiratory Effort / Characteristics Non-Labored Respiratory Depth Normal Blood Pressure 127/87 Blood Pressure Mean 100 Pulse Oximetry 92 Oxygen Delivery Method Room Air Sepsis Recent Fever Within 48 Hours No Sepsis New/Unexplained Change in Mental Status N/A Sepsis Action Taken by Nursing No Action Required Laboratory Data 01/26/23 17:58 01/26/23 17:58 Lab Results 01/26/23 01/26/23 01/26/23 Range/Units 17:58 17:58 17:58 WBC 8.41 (4.8-10.8) K/ul RBC 5.80 H (4.20-5.40) M/uL Hgb 16.6 H (12.0-16.0) g/dl Hct 49.0 H (37.0-47.0) % MCV 84.5 (80.0-100.0) fL MCH 28.6 (25.0-34.0) pg MCHC 33.9 (32.0-36.0) g/dL RDW Std Deviation 46.5 H (36.4-46.3) fL RDW Coeff of Tori 15.5 H (11.5-14.5) % Plt Count 274 (130-400) K/uL MPV 9.3 L (9.4-12.4) fL Immature Gran % (Auto) 0.4 % Neut % (Auto) 65.3 % Lymph % (Auto) 20.6 % [place] % (Auto) 10.0 % Eos % (Auto) 2.9 % Baso % (Auto) 0.8 % Neut # (Auto) 5.50 (1.40-6.50) K/uL Lymph # (Auto) 1.73 (1.2-3.4) K/uL [place] # (Auto) 0.84 H (0.11-0.59) K/uL Eos # (Auto) 0.24 (0-0.50) K/uL Baso # (Auto) 0.07 (0-0.2) K/uL Immature Gran # (Auto) 0.03 (0.01-0.20) K/uL PT 11.1 (9.0-12.0) Seconds INR 1.0 (0.9-1.1) APTT 27.9 (21.0-31.0) Seconds PTT Ratio 1.0 Sodium 138 (136-145) mmol/L Potassium 3.6 (3.5-5.1) mmol/L Chloride 101 (98-107) mmol/L Carbon Dioxide 29 (21-32) mmol/L Anion Gap 8 (3-11) BUN 21 (6-23) mg/dl Creatinine 1.02 (0.6-1.2) mg/dl Est Cr Clr Drug Dosing 77.8 ml/min Est GFR ( Amer) 70.7 ml/min Est GFR (Non-Af Amer) 61.0 ml/min BUN/Creatinine Ratio 20.6 H (10-20) Glucose 123 H (70-99(Fasting)) mg/dl Calcium 9.8 (8.5-10.1) mg/dl Total Bilirubin 0.9 (0.2-1.0) mg/dl AST 17 (13-39) U/L ALT 15 (7-52) U/L Alkaline Phosphatase 78 (34-104) U/L Troponin I High Sens 3.7 (0-14) pg/ml Total Protein 7.7 (6.0-8.3) gm/dl Albumin 4.3 (3.4-5.0) gm/dl Globulin 3.4 (2.5-4.0) gm/dl Albumin/Globulin Ratio 1.3 (0.9-2) Discharge Plan Visit Data Chief Complaint: Abnormal Labs/Diagnostic Testing Stated Complaint: REF BY DOC,TROUBLE BREATHING,ABNORMAL LABS ED Provider: Ashutosh Harvey Discharge Problem: Exertional dyspnea, Abnormal cardiovascular stress test Patient Disposition: Being Evaluated by Hospitalist Forms Stand Alone Forms: My [facility], Virtual Emergency Department, Important Visit Information Prescriptions Prescriptions: No Action escitalopram oxalate 10 mg tablet 10 mg PO QAM Trelegy Ellipta 100-62.5-25 mcg blister with device 1 ea INHALATION DAILY famotidine 20 mg tablet 20 mg PO HS PRN (Reason: Heartburn) prednisone 10 mg tablet 10 mg PO UD Qty: 9 0RF Rx Instructions: 3 tabs po daily x 1 day, then 2 tabs po daily x 2 days, then 1 tabs po daily x 2 days, then STOP ipratropium-albuterol 0.5 mg-3 mg(2.5 mg base)/3 mL solution for nebulization 3 ml INHALATION Q6 PRN (Reason: cough,shortness of breath) Qty: 20 0RF levalbuterol tartrate 45 mcg/actuation HFA aerosol inhaler 1 puff INHALATION Q4 PRN (Reason: Wheezing) Qty: 20 0RF Referrals Referrals: Carol De La Cruz PA-C [Primary Care Provider] -
[2023-01-26] MEDS ORDERED: NITROGLYCERIN SL 0.4 MG/TAB TAB SL PRN (22:28)
[2023-01-26] MEDS ORDERED: POLYETHYLENE (MIRALAX) 17 GM PACK PO PRN (22:28)
[2023-01-26] MEDS ORDERED: LEVALBUTEROL TARTRATE 15 GM HFA.AER.AD INH PRN (22:28)
--- NOTE | 2023-01-26 23:23 | History and Physical Report ---
DATE OF ADMISSION: 01/26/2023. CHIEF COMPLAINT: Dyspnea on exertion and abnormal stress test. HISTORY OF PRESENT ILLNESS: A 57-year-old female with past medical history significant for asthma, history of COPD, obstructive sleep apnea, history of lung nodules, history of reflex sympathetic dystrophy, history of tobacco abuse says she quit smoking 5 years ago, history of depression. Had a stress test today, which was abnormal, and advised to come to the ER for elective cardiac catheterization. The patient says she is having exertional shortness of breath going on since November. She thinks when she started metoprolol, she was feeling depressed and also that shortness of breath got a little worse and she is having chronic cough since the end of September, not getting better, but denies any chest pain. . Denies any headache. She has some mild earache, no runny nose. Has sore throat from coughing. No difficulty swallowing. Appetite is okay. No nausea, no abdominal pain. Normal bowel and bladder movements. No swelling in the legs. ALLERGIES: No known drug allergies. PAST MEDICAL HISTORY: As mentioned above. PAST SURGICAL HISTORY: Ligation of oviducts, amputation of left second fingertip. MEDICATIONS: The patient is on famotidine 20 mg p.o. a.m., gabapentin 200 mg p.o. q.i.d., DuoNebs q. 6 hours p.r.n., Xopenex 1 puff inhalation q. 4 hours p.r.n., metoprolol succinate 25 mg p.o. daily, Trelegy Ellipta one inhalation daily. FAMILY HISTORY: Significant for mother has diabetes, [place], CABG, seizures, stroke; father of brain aneurysm. SOCIAL HISTORY: . Quit smoking in 2014, smoked 1.5 packs a day for 37 years. Alcohol occasional. Occasional marijuana last in summer of [address] [facility] REVIEW OF SYSTEMS: As per HPI. Rest of review of systems is negative. PHYSICAL EXAMINATION: GENERAL: The patient is of moderate build, not in acute distress. VITAL SIGNS: Temperature 36.6, pulse 102, respiratory rate 22, blood pressure 129/89, oxygen 93% on room air. HEENT: Pupils equal, round and reactive to light. Oral mucosa moist. NECK: No JVD, no neck masses. CARDIOVASCULAR: S1 and S2 heard. Regular rate and rhythm. No murmur, no gallop. RESPIRATORY SYSTEM: Normal AP diameter. No accessory muscle use. No wheezing or crackles. ABDOMEN: Soft, bowel sounds present, nontender, no distention. CENTRAL NERVOUS SYSTEM: Cranial nerves II-XII grossly intact, nonfocal. EXTREMITIES: No edema, no erythema. LABORATORY DATA: WBC 8.4, hemoglobin 16.6, hematocrit 49, platelets 274. PT 11.1, INR 1, APTT 27.9. Sodium 138, potassium 3.6, chloride 101, bicarbonate 29, BUN 21, creatinine 1.02, serum glucose 123, calcium 9.8, total bilirubin 0.9, AST 17, ALT 15, alkaline phosphatase 78. Troponin I high sensitivity 3.7. SARS-CoV-2 rapid test negative. IMAGING DATA: Chest x-ray, no acute findings. EKG: Sinus tachycardia with occasional PVCs at rate of 108, nonspecific ST changes seen. ASSESSMENT AND PLAN: This is a 57-year-old female who presents with dyspnea on exertion and abnormal stress test. 1. Dyspnea on exertion: Going on for some time, she says since September, but lately got worse. Abnormal stress test as outpatient. Echo showed normal left ventricular chamber and mild concentric LVH, severely reduced LV systolic function with EF of 33%, [id number] global hypokinesis with severe hypokinesis of the anterior/anteroseptal cardoza, grade 1 diastolic dysfunction, no significant valvular pathology. A small anterior loculated pericardial effusion is present. . Will keep her n.p.o. Plan for possible catheterization in the a.m. Continue her home medication of metoprolol succinate. Will also add aspirin. 2. History of chronic obstructive pulmonary disease and asthma: Continue her home inhalers. Having cough, possible bronchitis. no obvious pneumonia. The patient recently had finished prednisone course and she had Z-KATARINA a couple of weeks ago. Will place on Robitussin A-C p.r.n. for cough and p.o. doxycycline. 3. History of obstructive sleep apnea: On CPAP at bedtime. 4. Gastroesophageal reflux disease: On famotidine. 5. Depression. 6. Deep venous thrombosis prophylaxis: Sequential compression devices for now. DISPOSITION: Closely monitor in the tele floor. Expect to discharge home and follow up with family doctor. Job ID: [id number] [facility]
[2023-01-26] MEDS: DOXYCYCLINE HYCLATE 100 MG CAP PO SCH (23:32)
[2023-01-26] MEDS: guaiFENesin/CODEINE 100MG/10MG 5ML UDC PO PRN (23:32)
[2023-01-27 06:00] LABS: Basophils # (auto) 0.07 K/uL (0-0.2); Basophils % (auto) 0.8 %; Eosinophils # (auto) 0.35 K/uL (0-0.50); Eosinophils % (auto) 4.1 %; Hemoglobin 14.7 g/dl (12.0-16.0); Immature Granulocytes # (auto) 0.04 K/uL (0.01-0.20); Immature Granulocytes % (auto) 0.5 %; Lymphocytes # (auto) 1.78 K/uL (1.2-3.4); Lymphocytes % (auto) 20.8 %; Mean Corpuscular Hemoglobin 28.6 pg (25.0-34.0); Mean Corpuscular Hgb Conc 33.4 g/dL (32.0-36.0); Mean Corpuscular Volume 85.6 fL (80.0-100.0); Mean Platelet Volume 9.3 fL (9.4-12.4); Monocytes # (auto) 0.76 K/uL (0.11-0.59); Monocytes % (auto) 8.9 %; Neutrophils # (auto) 5.57 K/uL (1.40-6.50); Neutrophils % (auto) 64.9 %; Platelet Count 237 K/uL (130-400); RDW Coefficient of Variation 15.3 % (11.5-14.5); RDW Standard Deviation 47.5 fL (36.4-46.3); Red Blood Count 5.14 M/uL (4.20-5.40); White Blood Count 8.57 K/ul (4.8-10.8)
[2023-01-27 06:28] LABS: BUN Creatinine Ratio 21.4 (10-20); Calcium 8.9 mg/dl (8.5-10.1); Creatinine Clr Calc Pharmacy 80.5 ml/min; Est GFR (African American) 74.2 ml/min; Magnesium 1.9 mg/dl (1.7-2.4)
--- NOTE | 2023-01-27 07:58 | XRay Report ---
XR chest 1V portable CLINICAL HISTORY: Chest pain, nonspecific TECHNIQUE: Single frontal radiograph of the chest was obtained. Comparison: Comparison is made to chest radiograph 10/18/2022 FINDINGS: Exam is limited by underpenetration. The cardiomediastinal silhouette is stable. The lungs are clear. Previously noted basilar opacities are not seen on today's exam. No evidence of pleural effusion or pneumothorax. IMPRESSION: No acute chest disease. ACT 112: Negative or not required by law. Electronically signed by: Lico Botello M.D. 01/27/2023 7:57 AM
[2023-01-27 08:05] LABS: Estimated Average Glucose 114 mg/dl; Hemoglobin A1C 5.6 % (4.5-5.6)
[2023-01-27] MEDS ORDERED: NON-FORMULARY MEDICATION (Fluticasone-Umeclidin-Vilanter [Trelegy Ellipta] 100-62.5-25 mcg INH SCH (09:00)
[2023-01-27] MEDS: GABAPENTIN 100 MG CAP PO SCH ×4 (10:08→20:18)
[2023-01-27] MEDS: UMECLIDINIUM/VILANTEROL 62.5/25MCG 7 PUFFS/INHALER INH SCH (10:13)
[2023-01-27] MEDS: METOPROLOL SUCC 25MG EXT REL TAB PO SCH ×2 (10:13→20:09)
[2023-01-27] MEDS: FLUTICASONE FUROATE 100MCG 14 PUFFS/INHALER INH SCH (10:13)
[2023-01-27] MEDS: DOXYCYCLINE HYCLATE 100 MG CAP PO SCH ×2 (10:14→20:11)
[2023-01-27] MEDS: FAMOTIDINE 20 MG TAB PO SCH (10:14)
[2023-01-27] MEDS: ASPIRIN 81 MG ECTAB PO SCH (10:14)
--- NOTE | 2023-01-27 10:59 | Cardiology Consultation ---
Date of Consultation January 27, 2023 Assessment & Plan (1) Acute hypoxemic respiratory failure: (2) Atrial tachycardia: (3) Systolic dysfunction: (4) NYHA class 3 systolic congestive heart failure with reduced left ventricular function: (5) Abnormal echocardiogram: Plan New onset systolic congestive heart failure. NYHA class III, multifactorial. ACC/AHA Stage C. Ejection fraction 30 to 34%. Patient maintaining sinus rhythm. EKG with a narrow QRS duration (84 ms). Volume status: Normovolemic. Resting echocardiography on January 26, 2023 suggests the presence of underlying coronary artery disease. - Attempt titration of evidence-based beta-gustavo therapy, metoprolol suc cinate, 25 mg AM, 12.5 mg PM. - Add low-dose ARB - Add ASA and statin - Hold off on adding low-dose furosemide +/- spironolactone for now - NPO after midnight for diagnostic cardiac catheterization Atrial and ventricular arrhythmias. SVT/atrial tachycardia. Ventricular tachycardia. Beta-gustavo therapy as above. Calcium channel gustavo therapy avoided due to heart failure with reduced ejection fraction. History of prolonged QTc, seemingly resolved off of Lexapro and nortriptyline. QTc 443 ms today. Follow. Asthma and COPD, emphysematous phenotype. Pulmonary nodules. History of tobacco abuse having quit in 2014. 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 Recommend resumption of nebulizer treatments. Supervising Physician Co-Signing Physician Notes I have reviewed the advance practitioner documentation and agree. I saw and evaluated the patient on the date of service referenced in the note and have performed a medically appropriate history and or exam. I discussed the cardiac catheterization with the patient. I explained the risk, benefit and intent including the potential for catheter-based intervention such as balloon angioplasty or intracoronary stents. The patient is agreeable to proceed and it will be scheduled for tomorrow AM. Otherwise agree with plan as outlined above. History of Present Illness Reason for Consultation: Shortness of breath, abnormal echo Requesting Physician: Priscilla Attending Physician: Koby History of Present Illness Ms. Senia Isaac is a very pleasant 57-year-old female who was admitted to [facility] in September 2022 secondary to acute on chronic shortness of breath, acute RSV infection. Cardiology consultation was obtained at that time due to a prolonged QT interval which trended to normal at the time of discharge. No dysrhythmias were noted on telemetry. Lexapro and nortriptyline were discontinued. QTc was normal when evaluated by Dr. Schulz on December 02, 2022. Resting echocardiogram in September 2022 was technically limited, revealing borderline concentric LVH, normal LV systolic function, ejection fraction 55 to 60%, and mild mitral regurgitation. Dr. Schulz recommended ZIO monitoring as well as exercise stress testing. ZIO monitoring in November 2022 revealed sinus as a predominant rhythm with an average heart rate of 103 bpm. 13 episodes of ventricular tachycardia were observed with the longest lasting 9.2 seconds. Some of the episodes labeled as ventricular tachycardia may actually represent atrial tachycardia with aberrant conduction. Idioventricular rhythm was present. Symptoms correlated with sinus tachycardia with transient wide-complex tachycardia likely atrial tachycardia with aberrancy. Minimum heart rate was 55 bpm. Maximum heart rate was 261 bpm. Based on ZIO monitor findings as well as the above, metoprolol succinate 25 mg/day was added. Patient presented for exercise stress testing on January 26, 2023. Unfortunately, authorization was denied by insurance. Patient with significant dyspnea with minimal activity leading to resting echocardiogram which revealed severely reduced LV systolic function, ejection fraction 33%, with mild to moderate global hypokinesis with severe hypokinesis of the anterior/anteroseptal cardoza. A small anterior loculated pericardial effusion was noted with marked fibrinous strands. No significant valvular pathology was observed. Due to echocardiographic findings and symptoms, patient was referred for hospitalization. Patient notes significant dyspnea even with movement throughout the room. She notes transient improvement when prescribed prednisone and notes improvement with the prior use of nebulizer treatments however nebulizer treatments were discontinued secondary to the prolonged QT interval. Patient has a cough that is productive of phlegm that is becoming more wet. She denies orthopnea, PND, or lower extremity peripheral edema. No chest pain. Stable palpitations. No dizziness or syncope. No fevers or chills. No melena or hematochezia. Allergies Allergy/AdvReac Type Severity Reaction Status Date / Time No Known Allergies Allergy Unverified 01/26/23 20:10 Home Medications Medication Instructions Recorded Confirmed Type famotidine 20 mg tablet 20 mg PO QAM 10/18/22 01/26/23 History fluticasone fur. 100 mcg-umeclid 1 ea inhalation QA 10/18/22 01/26/23 History 62.5 mcg-vilant 25 mcg inhalat.powder (Trelegy Ellipta) ipratropium 0.5 mg-albuterol 3 mg 3 ml inhalation Q6 PRN 10/23/22 01/26/23 Rx (2.5 mg base)/3 mL nebulization cough,shortness of breath #20 mL soln levalbuterol tartrate 45 1 puff inhalation Q4 PRN Wheezing 10/23/22 01/26/23 Rx mcg/actuation aerosol inhaler #20 grams gabapentin 800 mg tablet 800 mg PO UD 01/26/23 01/26/23 History metoprolol succinate 25 mg 25 mg PO QAM 01/26/23 01/26/23 History tablet,extended release 24 hr perflutren lipid microspheres 1.956 mg ONCE 01/26/23 01/26/23 History prednisone 10 mg tablet 10 mg PO UD 01/26/23 01/26/23 History Patient History Medical History Asthma with COPD COPD (chronic obstructive pulmonary disease) JAROCHO (obstructive sleep apnea) Reflex sympathetic dystrophy of other specified site Social History Smoking Status: Former smoker Second Hand Exposure: No; Do You Dip or Chew Tobacco: No; Tobacco Cessation Education Requested by Patient: No Hx Alcohol Use: No Hx Substance Use: No Preferred Language: Angolan Communication Ability: Effective Furniture Sprayer Required: No Beliefs That Will Affect Care: None Current Living Situation: Alone Current Living Situation Comment: home alone Other Information That Helps Us Care for You: No Feels Safe at Home: Yes Safety Concerns: Feels Safe At This Time Assistive Devices: None Review of Systems Review of Systems: Complete review of systems is otherwise as stated above, negative, noncontributory. Physical Exam Physical Exam: General: A&Ox3. NAD. HENT: Normocephalic. Atraumatic. Eyes: PER. Conjunctiva pink, sclera clear. Neck: No carotid bruits. No JVD. No HJR. Heart: Regular, 100 bpm. No murmur. No rub. No gallop. Lungs: Markedly diminished and decreased breath sounds. Poor air exchange. Diffuse expiratory wheezing. aint rhonchi that improved post cough. Abdomen: +BS. Soft. Nontender. No masses or organomegaly. Extremities: No clubbing, cyanosis, or edema. Limited neurological examination is without focal deficits. Pulses: radial=2/4, posterior tibial=2/4. Results & Data ([facility]) Vital Signs (Past 12 Hours) Vital Signs Temp Pulse Pulse Resp BP Pulse Ox O2 Del Method 01/27/23 10:51 36.8 C 90 19 108/79 91 Room Air 01/27/23 08:34 102 H 01/27/23 07:20 36.8 C 93 H 19 118/78 91 Room Air 01/27/23 02:55 36.4 C L 114 H 20 118/79 90 Room Air 01/27/23 01:02 132 H 01/27/23 00:04 103 H 18 91 01/26/23 23:46 36.6 C 85 18 137/90 95 Room Air FiO2 01/27/23 10:51 01/27/23 08:34 01/27/23 07:20 01/27/23 02:55 01/27/23 01:02 01/27/23 00:04 21 01/26/23 23:46 Laboratory Results Cardiac Enzymes 01/26/23 01/27/23 01/27/23 Range/Units 17:58 05:28 05:28 AST 17 (13-39) U/L Troponin I High Sens 3.7 Cancelled 4.0 (0-14) pg/ml Coagulation 01/26/23 Range/Units 17:58 PT 11.1 (9.0-12.0) Seconds APTT 27.9 (21.0-31.0) Seconds CBC 01/26/23 01/27/23 Range/Units 17:58 05:28 WBC 8.41 8.57 (4.8-10.8) K/ul RBC 5.80 H 5.14 (4.20-5.40) M/uL Hgb 16.6 H 14.7 (12.0-16.0) g/dl Hct 49.0 H 44.0 (37.0-47.0) % Plt Count 274 237 (130-400) K/uL Neut # (Auto) 5.50 5.57 (1.40-6.50) K/uL Lymph # (Auto) 1.73 1.78 (1.2-3.4) K/uL Cross # (Auto) 0.84 H 0.76 H (0.11-0.59) K/uL Eos # (Auto) 0.24 0.35 (0-0.50) K/uL Baso # (Auto) 0.07 0.07 (0-0.2) K/uL Comprehensive Metabolic Panel 01/26/23 01/27/23 Range/Units 17:58 05:28 Sodium 138 140 (136-145) mmol/L Potassium 3.6 4.0 (3.5-5.1) mmol/L Chloride 101 104 (98-107) mmol/L Carbon Dioxide 29 31 (21-32) mmol/L BUN 21 21 (6-23) mg/dl Creatinine 1.02 0.98 (0.6-1.2) mg/dl Glucose 123 H 112 H (70-99(Fasting)) mg/dl Calcium 9.8 8.9 (8.5-10.1) mg/dl AST 17 (13-39) U/L ALT 15 (7-52) U/L Alkaline Phosphatase 78 (34-104) U/L Total Protein 7.7 (6.0-8.3) gm/dl Albumin 4.3 (3.4-5.0) gm/dl Intake and Output 01/26/23 01/27/23 01/27/23 22:59 06:59 14:59 Other: Weight 96.2 kg 95.2 kg Weight Measurement Method Chair Scale Standing Scale Diagnostic Findings Continuous telemetry monitoring reveals sinus/sinus tachycardia
[2023-01-27] MEDS: ALBUT/IPRATROP 3MG/0.5MG NEB 3 ML VIAL INH PRN (11:26)
[2023-01-27] MEDS ORDERED: COUGH DROP (SUGAR FREE) LOZ 24 LOZ/1 BOX BUCCAL ONE (12:55)
[2023-01-27 13:20] LABS: Ferritin 234.8 ng/ml (8-388)
[2023-01-27] MEDS: ATORVASTATIN 40 MG TAB PO SCH (13:28)
--- NOTE | 2023-01-27 16:34 | Hospitalist Progress Note ---
Date of Service January 27, 2023 Assessment & Plan (1) NYHA class 3 systolic congestive heart failure with reduced left ventricular function: Plan 57-year-old lady with PMH of asthma, COPD, JAROCHO, lung nodules, reflex sympathetic dystrophy, tobacco abuse [quit 5 years ago], depression presented to the ED 01/26 after abnormal stress test for possibly cardiac cath. She is being managed for the following: Dyspnea on exertion NYHA class III systolic CHF with reduced left ventricular function Abnormal cardiac stress test as an outpatient Patient reports having dyspnea on exertion since November Patient had abnormal cardiac stress test as an outpatient, was directed to the ED for cardiac cath eval. Patient denies any chest pain, troponin trends WNL, has history of SVTs. 01/26/2023 echo with EF of 33%, severely reduced LV systolic function, normal LV chamber size with mild concentric LVH TsH wnl. Cardiology on board, optimizing GDMT, n.p.o. after midnight, for cardiac cath tomorrow. Other chronic medical conditions: COPD and asthma: Having cough, possible bronchitis. Occasional rhonchi. Recently finished a course of prednisone and Z-Parker couple of weeks ago. Continue with Robitussin and doxycycline. c/w home nebs. JAROCHO: CPAP at bedtime GERD: On famotidine Depression: Continue home meds DVT prophylaxis: SCDs Full code Admission and Anticipated Discharge Date Admission Date: January 26, 2023 Subjective patient seen and examined at bedside as a follow-up of dyspnea on exertion and abnormal outpatient stress test. Patient was lying in bed, on room air, NAD, reports no new acute event overnight, denies chest pain or palpitation, reports shortness of breath with exertion, denies headache or dizziness or sore throat or cough or belly pain, reports eating okay and moving bowels okay. Had SVT x approx 45 sec in AM, broke w/ bearing down into NSR. Physical Exam Physical Exam: GENERAL: Alert and oriented x3. NAD, on RA. HEENT: No pallor, no icterus. Pupils equal, round and reactive to light. Oral mucosa moist. NECK: No JVD, no neck masses. HEART: S1 and S2 heard. Regular rate and rhythm. No murmur, no gallop. RESPIRATORY SYSTEM: Normal AP diameter. No accessory muscle use. occasional rhonci, no crackles. ABDOMEN: Soft, bowel sounds present, nontender, no distention. CENTRAL NERVOUS SYSTEM: No facial droop. Speech is clear. Obeys simple commands. Moves extremities. EXTREMITIES: No edema, no erythema seen. Results & Data Results & Data ([facility]) Vital Signs (Past 12 Hours) Vital Signs Temp Pulse Pulse Resp BP Pulse Ox O2 Del Method 01/27/23 15:41 36.7 C 95 H 18 122/82 91 Room Air 01/27/23 15:39 102 H 01/27/23 13:42 Room Air 01/27/23 11:31 104 H 18 92 Room Air 01/27/23 10:51 36.8 C 90 19 108/79 91 Room Air 01/27/23 08:34 102 H 01/27/23 07:20 36.8 C 93 H 19 118/78 91 Room Air
[2023-01-27] MEDS: ACETAMINOPHEN 325 MG TAB PO PRN (20:16)
[2023-01-27] MEDS ORDERED: LOSARTAN POTASSIUM 25 MG TAB PO SCH (21:00)
[2023-01-28] MEDS: SODIUM CHLORIDE 0.9% 1000ML 1,000 ML IV SCH ×2 (00:31→10:39)
--- NOTE | 2023-01-28 05:53 | Electrocardiogram Report ---
Test Reason : Blood Pressure : / mmHG Vent. Rate : 108 BPM Atrial Rate : 122 BPM P-R Int : 138 ms QRS Dur : 076 ms QT Int : 324 ms P-R-T Axes : 066 061 070 degrees QTc Int : 434 ms Poor data quality, interpretation may be adversely affected Sinus tachycardia with occasional Premature ventricular complexes with frequent and repetitive PACs Nonspecific ST and T wave abnormality Abnormal ECG When compared with ECG of 20-OCT-2022 05:38, Premature ventricular complexes are now Present Non-specific change in ST segment in Inferior leads Nonspecific T wave abnormality now evident in Lateral leads Confirmed by Leon Damico ([id number]) on 01/28/2023 5:53:19 AM Referred By: REFERRED SELF Confirmed By:Leon Damico
--- NOTE | 2023-01-28 06:08 | Electrocardiogram Report ---
Test Reason : Blood Pressure : / mmHG Vent. Rate : 102 BPM Atrial Rate : 102 BPM P-R Int : 140 ms QRS Dur : 084 ms QT Int : 340 ms P-R-T Axes : 064 061 071 degrees QTc Int : 443 ms Sinus tachycardia with occasional Premature ventricular complexes Otherwise normal ECG When compared with ECG of 26-JAN-2023 17:50, (unconfirmed) Nonspecific T wave abnormality no longer evident in Inferior leads Confirmed by Leon Damico ([id number]) on 01/28/2023 6:08:13 AM Referred By: REFERRED SELF Confirmed By:Leon Damico
[2023-01-28 06:42] LABS: Hematocrit (blood only) 44.7 % (37.0-47.0); Hemoglobin 14.9 g/dl (12.0-16.0); Mean Corpuscular Hgb Conc 33.3 g/dL (32.0-36.0); Mean Platelet Volume 9.5 fL (9.4-12.4); Platelet Count 258 K/uL (130-400); RDW Coefficient of Variation 15.3 % (11.5-14.5); RDW Standard Deviation 47.1 fL (36.4-46.3); Red Blood Count 5.32 M/uL (4.20-5.40); White Blood Count 5.71 K/ul (4.8-10.8)
[2023-01-28 07:02] LABS: Calcium 8.8 mg/dl (8.5-10.1); Est GFR (African American) 99.3 ml/min; Est GFR (Non-African American) 85.7 ml/min; Phosphorus 3.6 mg/dl (2.5-4.9); Potassium 3.9 mmol/L (3.5-5.1)
[2023-01-28] MEDS ORDERED: HEPARIN (PORCINE) 1000 UNIT/ML 10 ML (CATH LAB USE ONLY) ONE (07:29)
[2023-01-28] MEDS ORDERED: niCARdipine HCL INJ 2.5 MG/ML 10 ML AMP ONE (07:29)
[2023-01-28] MEDS ORDERED: fentaNYL citrate PF 100 MCG/2 ML VIAL ONE (07:29)
[2023-01-28] MEDS ORDERED: MIDAZOLAM HCL 1 MG/ML 2ML VIAL ONE (07:30)
[2023-01-28] MEDS ORDERED: NITROGLYCERIN/D5W 100MCG/ML 20ML SYR ONE (07:30)
--- NOTE | 2023-01-28 08:49 | Cardiac Catheterization ---
Date of Service January 28, 2023 Cardiac Cath Report Cardiac Cath Report Procedure: 1. Coronary angiography 2. Left heart catheterization 3. Left ventriculogram History: This is a 57-year-old female who had an abnormal echocardiogram and was referred for cardiac catheterization. Procedure: After informed consent was obtained the patient was brought to the cardiac catheterization lab where she was prepped and draped in the usual manner for a right transradial approach. Preformed 5 Mauritian diagnostic catheters were utilized for the coronary angiograms. A 5 Mauritian pigtail catheter was utilized for the left ventriculogram and left heart pressures. Following the procedure the patient was returned to her room in stable condition. ACC data: Start time 8:24 AM End time 8:40 AM Opening aortic pressure 105/74 Closing aortic pressure 120/74 LV pressure 124/14 Sedation 2 mg intravenous Versed 2000 units of heparin IV fluid 30 cc normal saline Contrast 70 cc Optiray Fluoroscopy time 3.5 minutes Radiation 436 mGy DAP 43.46 Thomas per centimeter squared Right dominant system AUC score 7 Coronary angiography: Selective injections of the left coronary artery revealed the left main trunk to be patent. The LAD extends all the way to the apex of the heart. The LAD gives off two medium size diagonal branches. The LAD system is widely patent. There is a medium size ramus branch from the left main trunk which is widely patent. The left circumflex artery consists principally of a large lateral marginal branch and a smaller posterior marginal branch. The left circumflex system is widely patent. Injections into the right coronary artery reveal it to be dominant. The right coronary artery is widely patent. Left ventriculogram: The left ventricle is of normal size with normal systolic function. The estimated left ventricular ejection fraction is 55%. The mitral valve is competent. The aortic root and ascending aorta have normal morphology and diameter. Summary: Widely patent and normal coronary arteries. Normal LV function and left heart pressures. Recommendation: Continued risk factor modification.
--- NOTE | 2023-01-28 08:50 | Pre Anesthesia Assessment ---
Date of Service January 28, 2023 Pre Sedation Assessment Vital Signs Temp Pulse Pulse Resp BP Pulse Ox Pulse Ox 01/28/23 07:29 36.3 C L 84 18 98/65 L 95 01/28/23 07:40 77 16 131/89 98 01/28/23 03:00 36.5 C 67 20 111/65 94 01/27/23 22:28 92 01/27/23 23:00 78 01/27/23 22:00 36.3 C L 88 20 101/72 90 01/27/23 20:00 01/27/23 19:00 36.5 C 92 H 17 122/78 92 01/27/23 15:41 36.7 C 95 H 18 122/82 91 01/27/23 15:39 102 H 01/27/23 13:42 01/27/23 11:31 104 H 18 92 01/27/23 10:51 36.8 C 90 19 108/79 91 O2 Del Method O2 Del Method 01/28/23 07:29 Room Air 01/28/23 07:40 Room Air 01/28/23 03:00 Room Air 01/27/23 22:28 Room Air 01/27/23 23:00 01/27/23 22:00 Room Air 01/27/23 20:00 Room Air 01/27/23 19:00 Room Air 01/27/23 15:41 Room Air 01/27/23 15:39 01/27/23 13:42 Room Air 01/27/23 11:31 Room Air 01/27/23 10:51 Room Air Pre-Sedation Airway Assessment Smoking Status: Former smoker Short, Thick Neck: No Thyromental Distance: > or= 3.5 Finger Breadths Oral Cavity: + Dentures Mallampati Class: II ASA: ASA3 NPO Status Date of Last Intake of Fluids: 01/27/23 Time of Last Intake of Fluids: 23:00 Date of Last Intake of Solid Food: 01/27/23 Time of Last Intake of Solid Foods: 19:00 Notes The planned sedation has been discussed with the patient. Informed Consent was obtained. I have identified the patient, determined the appropriateness of sedation and have assessed the patient immediately prior to the procedure. All medicine(s) and interventions are by my order.
--- NOTE | 2023-01-28 08:50 | Post Anesthesia Assessment ---
Date of Service January 28, 2023 Post Sedation Assessment Vital Signs Temp Pulse Pulse Resp BP Pulse Ox Pulse Ox 01/28/23 07:29 36.3 C L 84 18 98/65 L 95 01/28/23 07:40 77 16 131/89 98 01/28/23 03:00 36.5 C 67 20 111/65 94 01/27/23 22:28 92 01/27/23 23:00 78 01/27/23 22:00 36.3 C L 88 20 101/72 90 01/27/23 20:00 01/27/23 19:00 36.5 C 92 H 17 122/78 92 01/27/23 15:41 36.7 C 95 H 18 122/82 91 01/27/23 15:39 102 H 01/27/23 13:42 01/27/23 11:31 104 H 18 92 01/27/23 10:51 36.8 C 90 19 108/79 91 O2 Del Method O2 Del Method 01/28/23 07:29 Room Air 01/28/23 07:40 Room Air 01/28/23 03:00 Room Air 01/27/23 22:28 Room Air 01/27/23 23:00 01/27/23 22:00 Room Air 01/27/23 20:00 Room Air 01/27/23 19:00 Room Air 01/27/23 15:41 Room Air 01/27/23 15:39 01/27/23 13:42 Room Air 01/27/23 11:31 Room Air 01/27/23 10:51 Room Air Discharge Sedation Level of Care: Fast Track Phase II Post Sedation Plan On clinical assessment, the patient appears to have tolerated the sedation wi thout complications. Patient is recovering as anticipated. Patient will continue to be monitored by nursing and may be discharged when sedation discharge criteria are met per below protocol. Upon Completions of procedure up to 15 minutes continue every 5 minute vital signs and the P.A.R. score; then discharge to a Phase I or Fast Track to Phase II per the following guidelines: * Discharge Patient to appropriate Phase II area if PAR is 8 or greater or return to pre- procedure baseline. The post - procedure orders will be as directed. * If PAR score is less than 8 or not return to pre-procedure baseline then patient will follow Phase I monitoring till PAR is reached for Phase II. The Phase I may be done in procedure room or may call to secure a Phase I area. * If naloxone or flumazenil are used for reversal, hold in Phase I for continued monitoring from when last reversal dose was given for a minimum of 60 minutes or longer pending the nurse and/or physician discretion of patient condition before discharge to Phase II. Please call the Sedation Physician to re-evaluate and complete post-note for discharge to Phase II area. Do NOT discharge from procedure sedation or Phase 1 until post- sedation evaluation note is complete by procedure /sedation MD Sedation Discharge Instructions to be given to the patient at discharge to home.
[2023-01-28] MEDS: GABAPENTIN 100 MG CAP PO SCH ×4 (09:22→20:13)
[2023-01-28] MEDS: ACETAMINOPHEN 325 MG TAB PO PRN ×2 (10:10→14:15)
[2023-01-28] MEDS: DOXYCYCLINE HYCLATE 100 MG CAP PO SCH ×2 (10:11→20:12)
[2023-01-28] MEDS: FAMOTIDINE 20 MG TAB PO SCH ×2 (10:12→20:12)
[2023-01-28] MEDS: ASPIRIN 81 MG ECTAB PO SCH (10:12)
[2023-01-28] MEDS: METOPROLOL SUCC 25MG EXT REL TAB PO SCH ×2 (10:14→20:13)
[2023-01-28] MEDS: ATORVASTATIN 40 MG TAB PO SCH (10:14)
[2023-01-28] MEDS: FLUTICASONE FUROATE 100MCG 14 PUFFS/INHALER INH SCH (10:15)
[2023-01-28] MEDS: UMECLIDINIUM/VILANTEROL 62.5/25MCG 7 PUFFS/INHALER INH SCH (10:15)
--- NOTE | 2023-01-28 10:49 | Cardiology Progress Note ---
Date of Service January 28, 2023 Assessment & Plan (1) Acute hypoxemic respiratory failure: (2) Atrial tachycardia: (3) Systolic dysfunction: (4) NYHA class 3 systolic congestive heart failure with reduced left ventricular function: (5) Abnormal echocardiogram: Plan Abnormal resting echocardiography on January 26, 2023, revealing new onset systolic congestive heart failure and suggesting underlying coronary artery disease; frequent ectopy noted during echocardiography. Right radial artery diagnostic cardiac catheterization performed by Dr. Hampton on January 28, 2023 revealed widely patent, normal coronary arteries with normal LV function and normal left heart pressures. Patient maintaining sinus rhythm after an episode of SVT in the AM of 01/27/2023. Significant underlying pulmonary disease and anxiety noted. Volume status: Normovolemic. Prolonged QTc, resolved off of Lexapro and nortriptyline. Follow. Asthma and COPD, emphysematous phenotype. Pulmonary nodules. History of tobacco abuse having quit in 2014. 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 RECOMMENDATIONS: - Continue beta-gustavo therapy as prescribed for now - metoprolol succinate 25 mg AM, 12.5 mg PM. - Continue ARB, losartan 25 mg/day - Continue ASA and statin noting the mild atherosclerotic calcification via chest CT on 01/25/2023 and dyslipidemia (LDL 166 mg/dL on 08/19/2023) - Resume nebulizer treatments - Risks and benefits of all of the above discussed. - Outpatient cardiology follow-up. Admission and Anticipated Discharge Date Admission Date: January 26, 2023 Supervising Physician Co-Signing Physician Notes I have reviewed the advance practitioner documentation and agree. I saw and evaluated the patient on the date of service referenced in the note and have performed a medically appropriate history and or exam. The patient had a normal heart cath this morning. By LV gram, LV function appears to be preserved. I a gree with treatment of the patient's hypertension. The patient should follow-up with pulmonary for reactive lung disease and history of smoking as an outpatient. Subjective Patient seen and examined post catheterization. Chart, medications, and telemetry reviewed. EKG on 01/28/2023 revealed normal sinus rhythm at 71 bpm. QTc 458 ms. When compared to the prior available tracing, PVCs are no longer present. Right radial artery diagnostic cardiac catheterization performed by Dr. Hampton on January 28, 2023 revealed widely patent and normal coronary arteries with normal LV function and normal left heart pressures. Continuous telemetry monitoring reveals sinus rhythm in the 70s No complaints other than ongoing cough and shortness of breath. Review of Systems Review of Systems: Complete review of systems is otherwise as stated above, negative, n oncontributory. Physical Exam Physical Exam: General: A&Ox3. NAD. More relaxed. HENT: Normocephalic. Atraumatic. Eyes: PER. Conjunctiva pink, sclera clear. Neck: No carotid bruits. No JVD. No HJR. Heart: Regular, 70 bpm. No murmur. No rub. No gallop. Lungs: Diminished. Decreased. Poor air exchange. + Wheeze. Abdomen: +BS. Soft. Nontender. No masses or organomegaly. Extremities: No clubbing, cyanosis, or edema. Limited neurological examination is without focal deficits. Results & Data ([facility]) Vital Signs (Past 12 Hours) Vital Signs Temp Pulse Pulse Resp BP Pulse Ox O2 Del Method 01/28/23 09:19 36.7 C 75 16 105/67 91 Room Air 01/28/23 09:00 87 18 99/69 L 94 Room Air 01/28/23 08:45 87 18 100/71 94 Room Air 01/28/23 07:29 36.3 C L 84 18 98/65 L 95 Room Air 01/28/23 07:40 77 16 131/89 98 Room Air 01/28/23 03:00 36.5 C 67 20 111/65 94 Room Air 01/27/23 23:00 78 Laboratory Results Cardiac Enzymes 01/27/23 01/27/23 01/27/23 Range/Units 11:03 12:13 16:38 Troponin I High Sens 3.4 3.6 (0-14) pg/ml B-Natriuretic Peptide 10 (0-100) pg/ml Coagulation 01/27/23 Range/Units 12:13 B-Natriuretic Peptide 10 (0-100) pg/ml CBC 01/28/23 Range/Units 05:58 WBC 5.71 (4.8-10.8) K/ul RBC 5.32 (4.20-5.40) M/uL Hgb 14.9 (12.0-16.0) g/dl Hct 44.7 (37.0-47.0) % Plt Count 258 (130-400) K/uL Comprehensive Metabolic Panel 01/28/23 Range/Units 05:58 Sodium 140 (136-145) mmol/L Potassium 3.9 (3.5-5.1) mmol/L Chloride 106 (98-107) mmol/L Carbon Dioxide 28 (21-32) mmol/L BUN 20 (6-23) mg/dl Creatinine 0.77 (0.6-1.2) mg/dl Glucose 110 H (70-99(Fasting)) mg/dl Calcium 8.8 (8.5-10.1) mg/dl Intake and Output 01/27/23 01/28/23 01/28/23 22:59 06:59 14:59 Intake Total 1300 / 1300 840.75 / 840.75 Balance 1300 / 1300 840.75 / 840.75 Intake: IV 840.75 / 840.75 Sodium Chloride 0.9% 1000ML 1, 840.75 / 840.75 000 ml @ 95 mls/hr IV .[id number] [facility] Rx#:[id number] Oral 1300 / 1300 Other: Other Intake Source NPO Weight 96.2 kg Weight Measurement Method Built in [facility]
[2023-01-28] MEDS ORDERED: LIDOCAINE 1% LOCAL 20 ML VIAL ONE (11:21)
--- NOTE | 2023-01-28 12:25 | Electrocardiogram Report ---
Test Reason : Blood Pressure : / mmHG Vent. Rate : 071 BPM Atrial Rate : 071 BPM P-R Int : 136 ms QRS Dur : 078 ms QT Int : 422 ms P-R-T Axes : 025 060 049 degrees QTc Int : 458 ms Normal sinus rhythm Normal ECG When compared with ECG of 27-JAN-2023 06:53, Premature ventricular complexes are no longer Present Confirmed by Rogelio Humphreys ([id number]) on 01/28/2023 12:25:25 PM Referred By: REFERRED SELF Confirmed By:Rogelio Humphreys
[2023-01-28] MEDS: methylPREDNISolone 40 MG in SYRINGE 0 ML IV SCH ×2 (12:34→20:11)
[2023-01-28] MEDS: LEVALBUTEROL TARTRATE 15 GM HFA.AER.AD INH SCH ×4 (13:00→22:15)
--- NOTE | 2023-01-28 13:26 | Hospitalist Progress Note ---
Date of Service January 28, 2023 Assessment & Plan (1) COPD exacerbation: Plan 57-year-old lady with PMH of asthma, COPD, JAROCHO, lung nodules, reflex sympathetic dystrophy, tobacco abuse [quit 5 years ago], depression presented to the ED 01/26 after abnormal stress test for possibly cardiac cath. She is being managed for the following: Dyspnea on exertion NYHA class III systolic CHF with reduced left ventricular function - ruled out. Abnormal cardiac stress test as an outpatient Acute exacerbation of asthma vs COPD Patient reports having dyspnea on exertion since November. Pt has h/o COPD, quit smoking around 5 years ago. Admitting CXR w/ no acute chest disease. 01/26/2023 echo with EF of 33%, severely reduced LV systolic function, normal LV chamber size with mild concentric LVH Patient had abnormal cardiac stress test as an outpatient ---> cardiac cath on 01/28 w/ Widely patent and normal coronary arteries. Normal LV function and left heart pressures. 01/27 BNP is 10. Patient denies any chest pain, troponin trends WNL, has been sinus in telemetry. TSH wnl Cardiology evaled, appreciate recs. c/w doxy 01/26. Will start solu medrol bid (famotidine bid when on steroid, then back to daily), continue w/ RTC nebs and prn nebs. If still wheezing the INH steroid to Nebs steroid in AM after eval. DC IVF later in the day. ON DC: f/u cardio f/u pulm, PFT Other chronic medical conditions: COPD and asthma: Having cough, possible bronchitis. Occasional rhonchi. Recently finished a course of prednisone and Z-Parker couple of weeks ago. Continue with Robitussin and doxycycline. c/w home nebs. JAROCHO: CPAP at bedtime GERD: On famotidine Depression: Continue home meds DVT prophylaxis: heparin sc. Full code Admission and Anticipated Discharge Date Admission Date: January 26, 2023 Subjective Patient seen and examined at bedside as a follow-up of dyspnea on exertion and abnormal outpatient stress test/sp normal cardiac cath 01/28/23. Patient was lying in bed, on room air, NAD, reports no new acute event overnight, denies chest pain or palpitation, reports shortness of breath with exertion, cough dry to scant clear mucus bothering her overnight and mostly in the day, denies headache or dizziness or sore throat or belly pain, reports eating okay and moving bowels okay. Physical Exam Physical Exam: GENERAL: Alert and oriented x3. NAD, on RA. HEENT: No pallor, no icterus. Pupils equal, round and reactive to light. Oral mucosa moist. NECK: No JVD, no neck masses. HEART: S1 and S2 heard. Regular rate and rhythm. No murmur, no gallop. RESPIRATORY SYSTEM: Normal AP diameter. No accessory muscle use. + wheezing, occ crackles. ABDOMEN: Soft, bowel sounds present, nontender, no distention. CENTRAL NERVOUS SYSTEM: No facial droop. Speech is clear. Obeys simple commands. Moves extremities. EXTREMITIES: No edema, no erythema seen. Results & Data Results & Data ([facility]) Vital Signs (Past 12 Hours) Vital Signs Temp Pulse Resp BP Pulse Ox O2 Del Method 01/28/23 13:00 84 18 96 Room Air 01/28/23 10:00 36.8 C 73 18 97/72 L 92 Room Air 01/28/23 12:12 36.7 C 73 18 105/73 94 Room Air 01/28/23 09:19 36.7 C 75 16 105/67 91 Room Air 01/28/23 09:00 87 18 99/69 L 94 Room Air 01/28/23 08:45 87 18 100/71 94 Room Air 01/28/23 07:29 36.3 C L 84 18 98/65 L 95 Room Air 01/28/23 07:40 77 16 131/89 98 Room Air 01/28/23 03:00 36.5 C 67 20 111/65 94 Room Air
[2023-01-28 13:43] LABS: Albumin 3.7 g/dL (3.8-4.8); Alpha 1 Globulin 0.4 g/dL (0.2-0.3); Alpha 2 Globulin 0.9 g/dL (0.5-0.9); Beta-1-Globulin 0.4 g/dL (0.4-0.6); Beta-2-Globulin 0.5 g/dL (0.2-0.5); Gamma Globulin 0.9 g/dL (0.8-1.7); Monoclonal Protein Band 1 DNR g/dL (NONE DETECTED); Monoclonal Protein Band 2 DNR g/dL (NONE DETECTED); Monoclonal Protein Band 3 DNR g/dL (NONE DETECTED); Total Protein 6.7 g/dL (6.1-8.1)
[2023-01-28] MEDS: LOSARTAN POTASSIUM 25 MG TAB PO SCH (20:11)
[2023-01-28] MEDS: HEPARIN SOD 5,000 UNIT/0.5 ML VIAL SQ SCH (20:12)
[2023-01-29] MEDS: LEVALBUTEROL TARTRATE 15 GM HFA.AER.AD INH SCH ×6 (02:11→23:30)
[2023-01-29 06:21] LABS: Hematocrit (blood only) 44.1 % (37.0-47.0); Mean Corpuscular Hemoglobin 28.1 pg (25.0-34.0); Mean Corpuscular Volume 82.7 fL (80.0-100.0); Mean Platelet Volume 9.5 fL (9.4-12.4); Platelet Count 296 K/uL (130-400); RDW Coefficient of Variation 14.7 % (11.5-14.5); RDW Standard Deviation 44.3 fL (36.4-46.3); Red Blood Count 5.33 M/uL (4.20-5.40); White Blood Count 8.96 K/ul (4.8-10.8)
[2023-01-29 06:39] LABS: Calcium 9.2 mg/dl (8.5-10.1); Creatinine Clr Calc Pharmacy 103.9 ml/min; Est GFR (African American) 100.9 ml/min; Est GFR (Non-African American) 87.1 ml/min; Phosphorus 3.2 mg/dl (2.5-4.9); Potassium 4.4 mmol/L (3.5-5.1)
[2023-01-29] MEDS: ATORVASTATIN 40 MG TAB PO SCH (08:22)
[2023-01-29] MEDS: DOXYCYCLINE HYCLATE 100 MG CAP PO SCH ×2 (08:22→20:24)
[2023-01-29] MEDS: ASPIRIN 81 MG ECTAB PO SCH (08:22)
[2023-01-29] MEDS: FAMOTIDINE 20 MG TAB PO SCH ×2 (08:23→20:22)
[2023-01-29] MEDS: FLUTICASONE FUROATE 100MCG 14 PUFFS/INHALER INH SCH (08:23)
[2023-01-29] MEDS: GABAPENTIN 100 MG CAP PO SCH ×4 (08:23→20:23)
[2023-01-29] MEDS: HEPARIN SOD 5,000 UNIT/0.5 ML VIAL SQ SCH ×2 (08:24→20:24)
[2023-01-29] MEDS: methylPREDNISolone 40 MG in SYRINGE 0 ML IV SCH ×2 (08:24→20:23)
[2023-01-29] MEDS: METOPROLOL SUCC 25MG EXT REL TAB PO SCH (08:24)
[2023-01-29] MEDS: UMECLIDINIUM/VILANTEROL 62.5/25MCG 7 PUFFS/INHALER INH SCH (08:24)
[2023-01-29] MEDS: SODIUM CHLORIDE 0.9% 1000ML 1,000 ML IV SCH (10:24)
[2023-01-29] MEDS: guaiFENesin/CODEINE 100MG/10MG 5ML UDC PO PRN (10:59)
--- NOTE | 2023-01-29 11:37 | Cardiology Progress Note ---
Date of Service January 29, 2023 Assessment & Plan (1) Acute hypoxemic respiratory failure: (2) Atrial tachycardia: (3) Systolic dysfunction: (4) NYHA class 3 systolic congestive heart failure with reduced left ventricular function: (5) Abnormal echocardiogram: Plan Presentation after abnormal resting echocardiography on January 26, 2023, new onset systolic congestive heart failure; ectopy noted during echocardiography. Right radial artery diagnostic cardiac catheterization performed by Dr. Hampton on January 28, 2023 revealed widely patent, normal coronary arteries with normal LV function and normal left heart pressures. + Recurrent SVT, last in the AM of 01/27/2023. + + Underlying pulmonary disease (asthma, COPD, pulmonary nodules, past tobacco abuse (quit in 2014), chemical/fumes/dust exposure at work) Prior prolonged QTc interval, resolved off of Lexapro and nortriptyline. RECOMMENDATIONS: - Switch metoprolol succinate to Cardizem CD 120 mg/day; benefits, use, and risks discussed. - Continue ASA and statin (mild atherosclerotic calcification via chest CT on 01/25/2023, dyslipidemia), risk factor and lifestyle modification. - Outpatient cardiology follow-up. Admission and Anticipated Discharge Date Admission Date: January 26, 2023 Supervising Physician Co-Signing Physician Notes Patient seen and examined at the bedside. Continues to note cough, wheezing, and dyspnea with exertion. No orthopnea, PND, or lower extremity edema. Cardiac catheterization performed during hospitalization demonstrated normal c oronary anatomy. Left ventriculogram demonstrated ejection fraction of 55%. PE: VSS. Gen: NAD, AAO x3. Heart: Regular rhythm, normal S1-S2. No murmur. Lungs: Diminished breath sounds at the bases bilateral. No rales, rhonchi or wheeze. Abdomen: Soft, nontender nondistended no rebound or guarding extremities: No edema. Neurologic: No focal motor deficit. A/P: Agree with above PA-C history, physical exam, assessment and plan. Metoprolol succinate transition to calcium channel gustavo therapy due to ongoing pulmonary issues. Monitor for recurrent dysrhythmia. Continue aspirin and statin therapy. No further inpatient cardiac testing or intervention at this time. Outpatient cardiology follow-up as scheduled. Cardiology will sign off. Subjective Patient seen and examined. Chart, medications, and telemetry reviewed. Ongoing cough and shortness of breath. Patient feels strongly that her cough and breathing have worsened since being prescribed beta-gustavo therapy. Telemetry: Sinus in the 70's and 80's. January 28, 2023 Diagnostic Cardiac Catheterization: Widely patent and normal coronary arteries with normal LV function and normal left heart pressures. Review of Systems Review of Systems: Complete review of systems is otherwise as stated above, negative, noncontributory. Physical Exam Physical Exam: General: A&Ox3. NAD. More relaxed. HENT: Normocephalic. Atraumatic. Eyes: PER. Conjunctiva pink, sclera clear. Neck: No carotid bruits. No JVD. No HJR. Heart: Regular, 70 bpm. No murmur. No rub. No gallop. Lungs: Diminished. Decreased. Poor air exchange. + Wheeze. Abdomen: +BS. Soft. Nontender. No masses or organomegaly. Extremities: No clubbing, cyanosis, or edema. Limited neurological examination is without focal deficits. Results & Data ([facility]) Vital Signs (Past 12 Hours) Vital Signs Temp Pulse Resp BP Pulse Ox O2 Del Method 01/29/23 11:23 36.4 C L 75 18 112/75 93 Room Air 01/29/23 08:00 Room Air 01/29/23 07:21 36.4 C L 71 18 113/71 92 Room Air 01/29/23 07:13 80 17 97 Room Air 01/29/23 02:57 36.5 C 75 20 125/82 94 Room Air Laboratory Results CBC 01/29/23 Range/Units 05:46 WBC 8.96 (4.8-10.8) K/ul RBC 5.33 (4.20-5.40) M/uL Hgb 15.0 (12.0-16.0) g/dl Hct 44.1 (37.0-47.0) % Plt Count 296 (130-400) K/uL Comprehensive Metabolic Panel 01/29/23 Range/Units 05:46 Sodium 138 (136-145) mmol/L Potassium 4.4 (3.5-5.1) mmol/L Chloride 106 (98-107) mmol/L Carbon Dioxide 26 (21-32) mmol/L BUN 19 (6-23) mg/dl Creatinine 0.76 (0.6-1.2) mg/dl Glucose 139 H (70-99(Fasting)) mg/dl Calcium 9.2 (8.5-10.1) mg/dl Intake and Output 01/28/23 01/29/23 01/29/23 22:59 06:59 14:59 Intake Total 600 / 2635.75 275 / 2635.75 Balance 600 / 2634.75 275 / 2634.75 Intake: Oral 600 / 1795 275 / 1795 Other: # Unmeasured Voids 1 1 Weight 95.3 kg Weight Measurement Method Built in [facility]
[2023-01-29] MEDS: BENZONATATE 100 MG CAPSULE PO SCH ×2 (13:06→20:23)
--- NOTE | 2023-01-29 15:07 | Hospitalist Progress Note ---
Date of Service January 29, 2023 Assessment & Plan (1) COPD exacerbation: Plan 57-year-old lady with PMH of asthma, COPD, JAROCHO, lung nodules, reflex sympathetic dystrophy, tobacco abuse [quit 5 years ago], depression presented to the ED 01/26 after abnormal stress test for possibly cardiac cath. She is being managed for the following: Dyspnea on exertion NYHA class III systolic CHF with reduced left ventricular function - ruled out. Abnormal cardiac stress test as an outpatient Acute exacerbation of asthma vs COPD Patient reports having dyspnea on exertion since November. Pt has h/o COPD, quit smoking around 5 years ago. Pt was started on metoprol about the same time. Admitting CXR w/ no acute chest disease. 01/26/2023 echo with EF of 33%, severely reduced LV systolic function, normal LV chamber size with mild concentric LVH Patient had abnormal cardiac stress test as an outpatient ---> cardiac cath on 01/28 w/ Widely patent and normal coronary arteries. Normal LV function and left heart pressures. 01/27 BNP is 10. Patient denies any chest pain, troponin trends WNL, has been sinus in telemetry. TSH wnl d/w cardio, plan to switch metoprolol to cardizem which will likely help her reactive airway disease. c/w doxy 01/26.c/w solu medrol bid (famotidine bid when on steroid, then back to daily), continue w/ RTC nebs and prn nebs. Still with significant cough, will make steroid inh to nebs. DC IVF, hopeful that switching of metoprolol and using nebs steroid will help her. Assess in AM if we can taper down steroid. ON DC: f/u cardio f/u pulm, PFT Other chronic medical conditions: COPD and asthma: Having cough, possible bronchitis. Occasional rhonchi. Recently finished a course of prednisone and Z-Parker couple of weeks ago. Continue with Robitussin and doxycycline. c/w home nebs. JAROCHO: CPAP at bedtime GERD: On famotidine Depression: Continue home meds DVT prophylaxis: heparin sc. Full code Admission and Anticipated Discharge Date Admission Date: January 26, 2023 Subjective Patient seen and examined at bedside as a follow-up of dyspnea on exertion and abnormal outpatient stress test/sp normal cardiac cath 01/28/23. Patient was sitting up in chair, on room air, NAD, reports no new acute event overnight, denies chest pain or palpitation, reports shortness of breath with exertion, cough dry to scant clear mucus - slightly better per pt, denies headache or dizziness or sore throat or belly pain, reports eating okay and moving bowels okay. Physical Exam Physical Exam: GENERAL: Alert and oriented x3. NAD, on RA. HEENT: No pallor, no icterus. Pupils equal, round and reactive to light. Oral mucosa moist. NECK: No JVD, no neck masses. HEART: S1 and S2 heard. Regular rate and rhythm. No murmur, no gallop. RESPIRATORY SYSTEM: Normal AP diameter. No accessory muscle use. + wheezing - improving, occ crackles. ABDOMEN: Soft, bowel sounds present, nontender, no distention. CENTRAL NERVOUS SYSTEM: No facial droop. Speech is clear. Obeys simple commands. Moves extremities. EXTREMITIES: No edema, no erythema seen. Results & Data Results & Data ([facility]) Vital Signs (Past 12 Hours) Vital Signs Temp Pulse Resp BP Pulse Ox O2 Del Method 01/29/23 12:08 79 18 96 Room Air 01/29/23 11:23 36.4 C L 75 18 112/75 93 Room Air 01/29/23 08:00 Room Air 01/29/23 07:21 36.4 C L 71 18 113/71 92 Room Air 01/29/23 07:13 80 17 97 Room Air
[2023-01-29] MEDS: BUDESONIDE 0.5 MG/2 ML VIAL (PULMICORT) NEB SCH (19:10)
[2023-01-29] MEDS: LOSARTAN POTASSIUM 25 MG TAB PO SCH (20:24)
[2023-01-30] MEDS: LEVALBUTEROL TARTRATE 15 GM HFA.AER.AD INH SCH ×8 (03:32→23:11)
[2023-01-30] MEDS: BUDESONIDE 0.5 MG/2 ML VIAL (PULMICORT) NEB SCH ×2 (07:14→19:53)
[2023-01-30] MEDS: HEPARIN SOD 5,000 UNIT/0.5 ML VIAL SQ SCH ×2 (08:19→20:47)
[2023-01-30] MEDS: methylPREDNISolone 40 MG in SYRINGE 0 ML IV SCH (08:19)
[2023-01-30] MEDS: FAMOTIDINE 20 MG TAB PO SCH (08:19)
[2023-01-30] MEDS: DOXYCYCLINE HYCLATE 100 MG CAP PO SCH ×2 (08:20→20:48)
[2023-01-30] MEDS: BENZONATATE 100 MG CAPSULE PO SCH ×3 (08:20→20:46)
[2023-01-30] MEDS: ASPIRIN 81 MG ECTAB PO SCH (08:20)
[2023-01-30] MEDS: GABAPENTIN 100 MG CAP PO SCH ×5 (08:20→20:47)
[2023-01-30] MEDS: ATORVASTATIN 40 MG TAB PO SCH (08:21)
[2023-01-30] MEDS: UMECLIDINIUM/VILANTEROL 62.5/25MCG 7 PUFFS/INHALER INH SCH (08:22)
[2023-01-30] MEDS ORDERED: dilTIAZem HCL 120 MG CAPCR PO SCH (09:00)
[2023-01-30] MEDS: ALBUT/IPRATROP 3MG/0.5MG NEB 3 ML VIAL INH PRN (11:12)
--- NOTE | 2023-01-30 11:47 | XRay Report ---
XR chest 1V portable CLINICAL HISTORY: dyspnea TECHNIQUE: Single frontal radiograph of the chest was obtained. Comparison: Comparison is made to chest radiograph 01/26/2023 FINDINGS: No lines and tubes are seen. The cardiomediastinal silhouette is normal. The lungs are clear. No evid ence of pleural effusion or pneumothorax. IMPRESSION: No acute abnormalities and in particular no radiographic evidence of pneumonia. ACT 112: Negative or not required by law. Electronically signed by: Lico Botello M.D. 01/30/2023 11:46 AM
--- NOTE | 2023-01-30 11:50 | Pulmonary Consultation ---
Date of Consultation January 30, 2023 Assessment & Plan (1) Exertional dyspnea: (2) COPD exacerbation: (3) Allergic rhinitis: (4) NYHA class 3 systolic congestive heart failure with reduced left ventricular function: Plan Will need outpatient PFTs and fractional exhaled nitric oxide. Discharge on Trelegy. I do not think metoprolol is playing a significant role in her symptoms. She is not currently bronchospastic. Recommend transitioning to oral corticosteroids for total course of 5 days. Continue ICS/LABA/LAMA while inpatient. Recommend allergy testing and checking IgE level as an outpatient. 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 We will add Astelin nasal spray and Flonase for sinus symptoms. She is scheduled to follow-up with [facility] pulmonology. No further interventions recommended at this time. Pulmonary to sign off. Thank you for allowing us to participate in the care of the patient. Please call with questions. History of Present Illness Reason for Consultation: "?asthma exacerbation ? not improving/feeling ofsob" Requesting Physician: Dr. Whalen Attending Physician: Herberth Whalen MD History of Present Illness History obtained by reviewing the chart, discussing with bedside RN and hospitalist. 57-year-old female with a past medical history of asthma, obstructive sleep apnea, tobacco abuse (quit smoking 5 years ago) who came to the ER due to an abnormal stress test. Patient noted that she was having shortness of breath since November and felt that it was related to metoprolol. She denies any fevers, chills or night sweats. She does endorse a dry cough. She is followed by cardiology. She had a right heart catheterization performed January 28 which revealed widely patent and normal coronary arteries with normal LV function. She has had recurrent SVT during this admission. She relates sinus congestion and allergies. She also relates a cough that is mostly nonproductive. She has dyspnea with exertion. Her morning was rough, but she feels better this afternoon. She had a chest x-ray completed this morning which was unremarkable. CT chest completed September 2022 which revealed patchy nodular airspace opac ities consistent with multifocal pneumonia. Emphysema was noted. Bronchial thickening and mildly enlarged mediastinal nodes. She is currently on doxycycline, Anoro Ellipta, methylprednisone 40 mg twice daily and Pulmicort. Metoprolol was switched to diltiazem due to concerns related to exacerbating asthma. Mild eosinophilia noted on CBC. Latest eosinophil count 350 on 01/27/2023. Allergies Allergy/AdvReac Type Severity Reaction Status Date / Time No Known Allergies Allergy Unverified 01/26/23 20:10 Home Medications Medication Instructions Recorded Confirmed Type famotidine 20 mg tablet 20 mg PO QAM 10/18/22 01/26/23 History fluticasone fur. 100 mcg-umeclid 1 ea inhalation QAM 10/18/22 01/26/23 History 62.5 mcg-vilant 25 mcg inhalat.powder (Trelegy Ellipta) ipratropium 0.5 mg-albuterol 3 mg 3 ml inhalation Q6 PRN 10/23/22 01/26/23 Rx (2.5 mg base)/3 mL nebulization cough,shortness of breath #20 mL soln levalbuterol tartrate 45 1 puff inhalation Q4 PRN Wheezing 10/23/22 01/26/23 Rx mcg/actuation aerosol inhaler #20 grams gabapentin 800 mg tablet 800 mg PO UD 01/26/23 01/26/23 History metoprolol succinate 25 mg 25 mg PO QAM 01/26/23 01/26/23 History tablet,extended release 24 hr perflutren lipid microspheres 1.956 mg ONCE 01/26/23 01/26/23 History prednisone 10 mg tablet 10 mg PO UD 01/26/23 01/26/23 History Patient History Medical History (Updated 01/30/23 @ 12:52 by Edward Jamison MD) Allergic rhinitis Asthma with COPD COPD (chronic obstructive pulmonary disease) JAROCHO (obstructive sleep apnea) Reflex sympathetic dystrophy of other specified site Social History Smoking Status: Former smoker Second Hand Exposure: No; Do You Dip or Chew Tobacco: No; Tobacco Cessation Education Requested by Patient: No Hx Alcohol Use: No Hx Substance Use: No Preferred Language: Luxembourger Communication Ability: Effective 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 Patient is in no apparent distress. Patient is well-developed. Eyes: Pupils are equal round and reactive to light. Conjunctivae are normal. Anicteric sclera. Ears nose, mouth and throat: Mallampati class 2. Normal posterior oropharynx. Uvula is midline. Neck: Trachea is midline. Visual inspection is normal. Respiratory: Clear to auscultation bilaterally. No use of accessory muscles. No significant clubbing noted. Cardiovascular: Regular rate and rhythm. No murmurs. No edema. Gastrointestinal: Normal bowel sounds, soft, nontender and nondistended. No hepatosplenomegaly noted. Musculoskeletal: No cyanosis. Patient is able to move all extremities. Strength is 5 out of 5 in the upper and lower extremities. Skin: No rashes, warm dry and intact. Neurologic: No obvious focal neurological deficits seen. Psychiatric: Alert and oriented x3 with a euthymic affect. Results & Data Results & Data ([facility]) Vital Signs (Past 12 Hours) Vital Signs Temp Pulse Pulse Resp BP Pulse Ox O2 Del Method 01/30/23 11:43 36.6 C 89 20 124/74 93 Room Air 01/30/23 11:12 73 16 96 Room Air 01/30/23 07:40 36.9 C 61 20 119/69 98 Room Air 01/30/23 07:14 72 18 96 Room Air 01/30/23 07:10 66 01/30/23 07:10 Room Air 01/30/23 04:38 Room Air 01/30/23 03:10 36.5 C 75 18 114/71 96 Room Air PG Care Time/CCT Total # of Minutes Spent Total Time Spent with Patient: Total time spent is greater than 50% in coordination of care (as documented) at patient's floor/unit and/or counseling patient: Coding Level of Care Code 96263 IN/OBS CONSULT LVL 3,45M Diagnoses Exertional dyspnea R06.09 COPD exacerbation J44.1 Allergic rhinitis J30.9 NYHA class 3 systolic congestive heart failure with reduced left ventricular function I50.20
[2023-01-30] MEDS: FLUTICASONE PROPIONATE NA SPR 16 GM BTL NAE SCH ×2 (13:21→20:47)
[2023-01-30] MEDS: AZELASTINE HCL 0.1% NASAL 200 SPRAYS/27,400 MCG BTL SCH ×2 (13:22→20:50)
[2023-01-30] MEDS ORDERED: METOPROLOL SUCC 25MG EXT REL TAB PO SCH (14:15)
--- NOTE | 2023-01-30 14:43 | Hospitalist Progress Note ---
Date of Service January 30, 2023 Assessment & Plan (1) COPD exacerbation: Plan 57-year-old lady with PMH of asthma, COPD, JAROCHO, lung nodules, reflex sympathetic dystrophy, tobacco abuse [quit 5 years ago], depression presented to the ED 01/26 after abnormal stress test for possibly cardiac cath. She is being managed for the following: Dyspnea on exertion NYHA class III systolic CHF with reduced left ventricular function - ruled out. Abnormal cardiac stress test as an outpatient Acute exacerbation of asthma vs COPD Patient reports having dyspnea on exertion since November. Pt has h/o COPD, quit smoking around 5 years ago. Pt was started on metoprol about the same time. Admitting CXR w/ no acute chest disease. 01/26/2023 echo with EF of 33%, severely reduced LV systolic function, normal LV chamber size with mild concentric LVH Patient had abnormal cardiac stress test as an outpatient ---> cardiac cath on 01/28 w/ Widely patent and normal coronary arteries. Normal LV function and left heart pressures. 01/27 BNP is 10. Patient denies any chest pain, troponin trends WNL, has been sinus in telemetry. TSH wnl 21 beats of VT 01/30 AM, d/w cardio 01/30- Toprol 25 mg; hold cardizem. Pulm evaled, appreciate recs. c/w doxy 01/26. PO prednisone from AM. continue w/ RTC nebs and prn nebs. Still with significant cough, wheezing somewhat better but w/ decreased lung sounds. cw w/ telemetry monitoring. ON DC: f/u cardio f/u pulm, PFT and fractional exhaled nitric oxide, allergy testing/IgE level. Pulm Rehab. Other chronic medical conditions: COPD and asthma: Having cough, possible bronchitis. Occasional rhonchi. Recently finished a course of prednisone and Z-Parker couple of weeks ago. Continue with Robitussin and doxycycline. c/w home nebs. JAROCHO: CPAP at bedtime GERD: On famotidine Depression: Continue home meds DVT prophylaxis: heparin sc. Full code Admission and Anticipated Discharge Date Admission Date: January 26, 2023 Subjective Patient seen and examined at bedside as a follow-up of dyspnea on exertion and abnormal outpatient stress test/sp normal cardiac cath 01/28/23. Patient was sitting up in chair, on room air, NAD, reports no new acute event overnight, denies chest pain or palpitation, reports shortness of breath with exertion, cough dry to scant clear mucus - slightly better per pt, denies headache or sore throat or belly pain, reports eating okay and moving bowels okay. Per tele, Pt had 21 beats of Vtach in AM a/w some lightheadedness and funny sensation. d/w cardio, plan to hold cardizem and resume toprol at 25 mg. d/w pulm due to ongoing asthma exacerbation, c/w laba/lama/ics while inpatient and po steroid. Physical Exam Physical Exam: GENERAL: Alert and oriented x3. NAD, on RA. HEENT: No pallor, no icterus. Pupils equal, round and reactive to light. Oral mucosa moist. NECK: No JVD, no neck masses. HEART: S1 and S2 heard. Regular rate and rhythm. No murmur, no gallop. RESPIRATORY SYSTEM: Normal AP diameter. No accessory muscle use. no wheezing, occ crackles. decreased breath sounds. ABDOMEN: Soft, bowel sounds present, nontender, no distention. CENTRAL NERVOUS SYSTEM: No facial droop. Speech is clear. Obeys simple commands. Moves extremities. EXTREMITIES: No edema, no erythema seen. Results & Data Results & Data ([facility]) Vital Signs (Past 12 Hours) Vital Signs Temp Pulse Pulse Resp BP Pulse Ox O2 Del Method 01/30/23 14:08 95 Room Air 01/30/23 11:43 36.6 C 89 20 124/74 93 Room Air 01/30/23 11:12 73 16 96 Room Air 01/30/23 07:40 36.9 C 61 20 119/69 98 Room Air 01/30/23 07:14 72 18 96 Room Air 01/30/23 07:10 66 01/30/23 07:10 Room Air 01/30/23 04:38 Room Air 01/30/23 03:10 36.5 C 75 18 114/71 96 Room Air
--- NOTE | 2023-01-30 18:33 | Cardiology Progress Note ---
Date of Service January 30, 2023 Assessment & Plan (1) Atrial tachycardia: (2) Acute hypoxemic respiratory failure: (3) Abnormal echocardiogram: Plan Recurrent SVT recorded with discontinuation of beta-gustavo. Patient subjectively feeling worse off beta-gustavo as well. No active wheeze today. Recommend transition back to Toprol-XL. She received 1 dose this morning with an additional dose in the evening. Continue twice daily dosing. Continue telemetry monitoring. Admission and Anticipated Discharge Date Admission Date: January 26, 2023 Subjective Patient seen examined the bedside. Contacted by hospitalist earlier today due to recurrent supraventricular tachycardia. Tachycardia occurring during nebulizer treatment as well as at rest. Patient states she is does not feel well off beta-gustavo therapy. No active wheeze today. Review of Systems Review of Systems: All systems reviewed & are unremarkable except as noted in Subjective Physical Exam Constitutional: well nourished; no acute distress Respiratory: normal respiratory effort; no respiratory distress and no labored breathing Auscultation: + diminished lung sounds; no crackles, no rales, no rhonchi and no wheezes Cardiovascular: Rate/Rhythm: regular rate and regular rhythm Heart Sounds: normal S1 and normal S2; no murmur Vessels: radial pulses present; no JVD and no carotid bruit Extremities: no edema Gastrointestinal (Abdomen): Inspection/Auscultation: abdomen normal to inspection and normal bowel sounds; abdomen not distended Percussion/Palpation: abdomen soft; abdomen nontender, no guarding and abdomen not rigid Neurologic: CN's II-XI intact bilaterally and moves all extremities; no focal motor deficits Motor/Sensory: no tremor Results & Data ([facility]) Vital Signs (Past 12 Hours) Vital Signs Temp Pulse Pulse Resp BP Pulse Ox O2 Del Method 01/30/23 15:36 81 01/30/23 14:39 36.6 C 82 20 129/74 93 Room Air 01/30/23 14:08 95 Room Air 01/30/23 11:43 36.6 C 89 20 124/74 93 Room Air 01/30/23 11:12 73 16 96 Room Air 01/30/23 07:40 36.9 C 61 20 119/69 98 Room Air 01/30/23 07:14 72 18 96 Room Air 01/30/23 07:10 66 01/30/23 07:10 Room Air
[2023-01-30] MEDS: LOSARTAN POTASSIUM 25 MG TAB PO SCH (20:48)
[2023-01-30] MEDS: METOPROLOL SUCC 25MG EXT REL TAB PO SCH (20:50)
[2023-01-31] MEDS: LEVALBUTEROL TARTRATE 15 GM HFA.AER.AD INH SCH ×3 (03:13→11:10)
[2023-01-31] MEDS: guaiFENesin/CODEINE 100MG/10MG 5ML UDC PO PRN (07:05)
[2023-01-31] MEDS: ALBUT/IPRATROP 3MG/0.5MG NEB 3 ML VIAL INH PRN (07:09)
[2023-01-31] MEDS: BUDESONIDE 0.5 MG/2 ML VIAL (PULMICORT) NEB SCH (07:09)
[2023-01-31 08:25] LABS: BUN Creatinine Ratio 27.7 (10-20); Est GFR (African American) 90.7 ml/min; Est GFR (Non-African American) 78.3 ml/min; Phosphorus 3.6 mg/dl (2.5-4.9); Potassium 4.1 mmol/L (3.5-5.1)
[2023-01-31] MEDS: METOPROLOL SUCC 25MG EXT REL TAB PO SCH (08:27)
[2023-01-31] MEDS: DOXYCYCLINE HYCLATE 100 MG CAP PO SCH (08:28)
[2023-01-31] MEDS: AZELASTINE HCL 0.1% NASAL 200 SPRAYS/27,400 MCG BTL SCH (08:29)
[2023-01-31] MEDS: ASPIRIN 81 MG ECTAB PO SCH (08:30)
[2023-01-31] MEDS: FLUTICASONE PROPIONATE NA SPR 16 GM BTL NAE SCH (08:30)
[2023-01-31] MEDS: ATORVASTATIN 40 MG TAB PO SCH (08:31)
[2023-01-31] MEDS: BENZONATATE 100 MG CAPSULE PO SCH ×2 (08:31→13:44)
[2023-01-31] MEDS: HEPARIN SOD 5,000 UNIT/0.5 ML VIAL SQ SCH (08:32)
[2023-01-31] MEDS: GABAPENTIN 100 MG CAP PO SCH ×2 (08:32→12:34)
[2023-01-31] MEDS: UMECLIDINIUM/VILANTEROL 62.5/25MCG 7 PUFFS/INHALER INH SCH (08:32)
[2023-01-31] MEDS ORDERED: FAMOTIDINE 20 MG TAB PO SCH (09:00)
[2023-01-31] MEDS ORDERED: predniSONE 20 MG TAB PO SCH (09:00)
--- NOTE | 2023-01-31 11:22 | Cardiology Progress Note ---
Date of Service January 31, 2023 Assessment & Plan (1) Atrial tachycardia: (2) NSVT (nonsustained ventricular tachycardia): (3) Acute hypoxemic respiratory failure: (4) Abnormal echocardiogram: Plan Continue Toprol-XL 25 mg twice daily. Left ventriculogram performed at the time of cardiac catheterization demonstrating normal left ventricular systolic function. No further inpatient cardiac testing or intervention at this time. Outpatient cardiology follow-up in 2 weeks. Admission and Anticipated Discharge Date Admission Date: January 26, 2023 Subjective Patient seen and examined at the bedside. Feeling well today. Short run of nonsustained VT recorded at 12:30 AM. No recurrent SVT. Tolerating Toprol-XL twice daily. Review of Systems Review of Systems: All systems reviewed & are unremarkable except as noted in Subjective Physical Exam Constitutional: well nourished; no acute distress Respiratory: normal respiratory effort; no respiratory distress and no labored breathing Auscultation: + diminished lung sounds; no crackles, no rales, no rhonchi and no wheezes Cardiovascular: Rate/Rhythm: regular rate and regular rhythm Heart Sounds: normal S1 and normal S2; no murmur Vessels: radial pulses present; no JVD and no carotid bruit Extremities: no edema Gastrointestinal (Abdomen): Inspection/Auscultation: abdomen normal to inspection and normal bowel sounds; abdomen not distended Percussion/Palpation: abdomen soft; abdomen nontender, no guarding and abdomen not rigid Neurologic: CN's II-XI intact bilaterally and moves all extremities; no focal motor deficits Motor/Sensory: no tremor Results & Data ([facility]) Vital Signs (Past 12 Hours) Vital Signs Temp Pulse Pulse Resp BP Pulse Ox O2 Del Method 01/31/23 11:15 36.3 C L 71 18 108/77 92 Room Air 01/31/23 07:20 36.3 C L 63 18 116/82 94 Room Air 01/31/23 07:00 49 L 01/31/23 07:00 Room Air 01/31/23 07:09 16 96 Room Air 01/30/23 23:00 60 01/31/23 03:25 36.4 C L 68 18 99/64 L 95 Room Air 01/30/23 22:55 65 18 97 Room Air 01/30/23 22:54 36.4 C L 62 18 121/81 97 Room Air
--- NOTE | 2023-01-31 13:34 | Discharge Summary ---
Date of Service January 31, 2023 Admission HPI Per Admitting Provider CHIEF COMPLAINT: Dyspnea on exertion and abnormal stress test. HISTORY OF PRESENT ILLNESS: A 57-year-old female with past medical history significant for asthma, history of COPD, obstructive sleep apnea, history of marielena ng nodules, history of reflex sympathetic dystrophy, history of tobacco abuse says she quit smoking 5 years ago, history of depression. Had a stress test today, which was abnormal, and advised to come to the ER for elective cardiac catheterization. The patient says she is having exertional shortness of breath going on since November. She thinks when she started metoprolol, she was feeling depressed and also that shortness of breath got a little worse and she is having chronic cough since the end of September, not getting better, but denies any chest pain. . Denies any headache. She has some mild earache, no runny nose. Has sore throat from coughing. No difficulty swallowing. Appetite is okay. No nausea, no abdominal pain. Normal bowel and bladder movements. No swelling in the legs. ALLERGIES: No known drug allergies. PAST MEDICAL HISTORY: As mentioned above. PAST SURGICAL HISTORY: Ligation of oviducts, amputation of left second fingertip. MEDICATIONS: The patient is on famotidine 20 mg p.o. a.m., gabapentin 200 mg p.o. q.i.d., DuoNebs q. 6 hours p.r.n., Xopenex 1 puff inhalation q. 4 hours p.r.n., metoprolol succinate 25 mg p.o. daily, Trelegy Ellipta one inhalation daily. FAMILY HISTORY: Significant for mother has diabetes, NC, CABG, seizures, stroke; father of brain aneurysm. SOCIAL HISTORY: . Quit smoking in 2014, smoked 1.5 packs a day for 37 years. Alcohol occasional. Occasional marijuana last in summer as per [employer] REVIEW OF SYSTEMS: As per HPI. Rest of review of systems is negative. Admission Exam Per Admitting Provider GENERAL: The patient is of moderate build, not in acute distress. VITAL SIGNS: Temperature 36.6, pulse 102, respiratory rate 22, blood pressure 129/89, oxygen 93% on room air. HEENT: Pupils equal, round and reactive to light. Oral mucosa moist. NECK: No JVD, no neck masses. CARDIOVASCULAR: S1 and S2 heard. Regular rate and rhythm. No murmur, no gallop. RESPIRATORY SYSTEM: Normal AP diameter. No accessory muscle use. No wheezing or crackles. ABDOMEN: Soft, bowel sounds present, nontender, no distention. CENTRAL NERVOUS SYSTEM: Cranial nerves II-XII grossly intact, nonfocal. EXTREMITIES: No edema, no erythema. Principal Diagnosis Dyspnea on exertion Abnormal cardiac stress test as an outpatient --> normal cardiac cath inpatient Acute exacerbation of asthma versus COPD Nonsustained ventricular tachycardia Discharge Exam GENERAL: Alert and oriented x3. NAD, on RA. HEENT: No pallor, no icterus. Pupils equal, round and reactive to light. Oral mucosa moist. NECK: No JVD, no neck masses. HEART: S1 and S2 heard. Regular rate and rhythm. No murmur, no gallop. RESPIRATORY SYSTEM: Normal AP diameter. No accessory muscle use. no wheezing, no crackles. decreased breath sounds--finally improving. ABDOMEN: Soft, bowel sounds present, nontender, no distention. CENTRAL NERVOUS SYSTEM: No facial droop. Speech is clear. Obeys simple commands. Moves extremities. EXTREMITIES: No edema, no erythema seen. Discharge Data Allergies Allergy/AdvReac Type Severity Reaction Status Date / Time No Known Allergies Allergy Unverified 01/26/23 20:10 Consultations 01/26/23 19:45 ED Decision to Admit Stat 01/27/23 08:00 Consult Cardiology Routine 01/30/23 10:47 Consult Pulmonology Routine Procedures Performed Operation Date: 01/28/23 08:00 Actual Procedures s Cineradiography w/Routine Exam - Curly Hampton DO p Cath, Left with Cors and Vent - Curly Hampton DO Ordered Studies 01/28/23 06:33 CL Cath Imgs for PACS use only Routine Hospital Course (1) COPD exacerbation: Plan 57-year-old lady with PMH of asthma, COPD, JAROCHO, lung nodules, reflex sympathetic dystrophy, tobacco abuse [quit 5 years ago], depression presented to the ED 01/26 after abnormal stress test for possibly cardiac cath. She was managed for the following: Dyspnea on exertion NYHA class III systolic CHF with reduced left ventricular function - ruled out. Abnormal cardiac stress test as an outpatient Acute exacerbation of asthma vs COPD Nonsustained Ventricular Tachycardia Patient reports having dyspnea on exertion since November. Pt has h/o COPD, quit smoking around 5 years ago. Pt was started on metoprol about the same time. Admitting CXR w/ no acute chest disease. 01/26/2023 echo with EF of 33%, severely reduced LV systolic function, normal LV chamber size with mild concentric LVH Patient had abnormal cardiac stress test as an outpatient ---> cardiac cath on 01/28 w/ Widely patent and normal coronary arteries. Normal LV function and left heart pressures. 01/27 BNP is 10. Patient denies any chest pain, troponin trends WNL. TSH wnl. 21 beats of VT 01/30 AM, cardio evaled, on metoprolol 25 mg bid, f/u cardio in 2 weeks. Pulm evaled, appreciate recs. c/w doxy 01/26 - to complete course on DC. PO prednisone taper. continue w/ RTC nebs and prn nebs. Per pt cough improving, CACERES improving, feels better. Lungs sounds getting better, no wheezing. f/u Pulm, PCP and establish w/ assistant production manager for eval on DC, pt aware. ON DC: f/u cardio f/u pulm, PFT and fractional exhaled nitric oxide, allergy testing/IgE level. Pulm Rehab. Other chronic medical conditions: COPD and asthma: Having cough, possible bronchitis. Occasional rhonchi. Recently finished a course of prednisone and Z-Parker couple of weeks ago. Continue with Robitussin and doxycycline. c/w home nebs. JAROCHO: CPAP at bedtime GERD: On famotidine Depression: Continue home meds DVT prophylaxis: heparin sc. Full code Patient being discharged to home with following instruction at the point of discharge: Follow-up with your primary care physician within 1 week, and likely you will need labs CBC/CMP/magnesium/phosphorus. Cardiology evaluated you, you are started on metoprolol twice a day because of your rhythm problem called NSVT. You underwent cardiac cath which was normal. Follow-up with your cardiology in 2 weeks time upon discharge. Follow-up with your lung doctor on coming Wednesday as scheduled prior. Coordinate with your PCP or pulmonology office for referral to assistant production manager for evaluation/allergy testing. You will also need outpatient pulmonary function test and fractional exhaled nitric oxide/IgE level/pulmonary rehab. Coordinate with your pulmonology office. For your asthma, you will be discharged on oral prednisone: Use 40 mg daily for next 5 days, then 20 mg daily for next 5 day and 10 mg daily for next 5 days. You can use levalbuterol instead of albuterol nebs when needed at home. Take your medications as prescribed. Please make sure that you are able to get your medications today by calling your pharmacy before you leave the hospital so that your treatment continuity is not broken. Home Health Attestation I certify that this patient is under my care and that I, or a physicians resident assistant cna working with me, had a face to-face encounter that meets the home health [id number] encounter requirements with this patient. The encounter with the patient was in whole, or in part, for the following medical condition, which is the primary reason for home health care (list medical condition): I certify that, based on my findings, the following services are medically necessary home health services: My clinical findings support the need for the above services because: Further, I certify that my clinical findings support that this patient is homebound (i.e. absences from home require considerable and taxing effort and are for medical reasons or congregation services or infrequently or of short duration when for other reasons) because: Certification for Home Health Services: Based on the above findings, I certify that this patient is confined to the home and needs intermittent jail care, physical therapy and/or speech therapy or continues to need occupational therapy. The patient is under my care, and I have initiated the establishment of the plan of care. This patient will be followed by a physician who will periodically review the plan of care. Total Time Total Time Spent Total Time Spent (In Minutes): 50 Discharge Plan Discharge Items Patient Disposition: Home - Self-Care Reason For Visit: ABNORMAL STRESS TEST Discharge Diagnosis: Dyspnea on exertion Abnormal cardiac stress test as an outpatient --> normal cardiac cath inpatient Acute exacerbation of asthma versus COPD Nonsustained ventricular tachycardia Activity: Per Instructions section Non-emergency contact: Primary Care Provider Call non-emergency contact if: you have any medication questions, your symptoms worsen and your temperature is above 101 Follow-up/Referrals: Carol De La Cruz PA-C [Primary Care Provider] - (Date & Time 02/04/2023 3:00 PM Provider Carol De La Cruz PA-C Department [facility] ) Diet: Heart Healthy Add Attending Provider Instructions: Follow-up with your primary care physician within 1 week, and likely you will need labs CBC/CMP/magnesium/phosphorus. Cardiology evaluated you, you are started on metoprolol twice a day because of your rhythm problem called NSVT. You underwent cardiac cath which was normal. Follow-up with your cardiology in 2 weeks time upon discharge. Follow-up with your lung doctor on coming Wednesday as scheduled prior. Coordinate with your PCP or pulmonology office for referral to assistant production manager for evaluation/allergy testing. You will also need outpatient pulmonary function test and fractional exhaled nitric oxide/IgE level/pulmonary rehab. Coordinate with your pulmonology office. For your asthma, you will be discharged on oral prednisone: Use 40 mg daily for next 5 days, then 20 mg daily for next 5 day and 10 mg daily for next 5 days. You can use levalbuterol instead of albuterol nebs when needed at home. Take your medications as prescribed. Please make sure that you are able to get your medications today by calling your pharmacy before you leave the hospital so that your treatment continuity is not broken. Addtl [facility] Care Provider Instructions: ACTIVITY RECOMMENDATIONS: Excess manipulation of the wrist should be avoided for the next 24-48 hours. * No lifting over 2 pounds (approximately a 1/2 gallon of milk) with the utilized arm for 24 hours. * No strenuous activity such as bowling or tennis for 3 days. * Keep the site of the procedure covered with a bandage for 24 hours. *You may shower the day after the procedure. Do not take a tub bath or submerge the puncture site in water for the next 3 days. *Do not operate any motorized equipment for 3 days. SPECIAL CARE INSTRUCTIONS: The site may be slightly bruised and sore following your procedure. Should any of the following occur, contact the Dr. who performed your procedure. 1. Redness/inflammation, swelling, chills, or fever, or colored drainage at procedure site within 3-7 days after your procedure. 2. Coldness, discoloration, ongoing numbness, severe pain, or swelling. Expect mild tingling of hand and tenderness at the puncture site for up to three days. If this persists beyond three days, or other symptoms develop, notify the Dr. who performed your procedure. BLEEDING: If the procedure site on your wrist begins to bleed, do not panic 1. Place 1 or 2 fingers firmly just slightly above the insertion site to stop the bleeding. You may be able to feel your pulse as you hold pressure. 2. Lift your finger after 5 minutes to see if the bleeding has stopped. 3. Once the bleeding has stopped, gently wipe the wrist area clean with a bandage. * If the bleeding from your wrist does not stop after 10 minutes, or if there is a large amount of bleeding or spurting, call 911 (do not drive yourself to the hospital). SKIN IRRITATION: * You may experience some redness and/or swelling in the area where radiation was administered. If any skin irritation occurs, please contact your family physician. FOLLOW UP VISIT: Keep any scheduled doctor appointments. Pending Studies at Discharge: No Stand-Alone Forms: My [facility] [employer], Smoking Cessation Medications and DC Order Prescriptions: New doxycycline hyclate 100 mg Capsule 100 mg PO BID 3 Days Qty: 6 0RF atorvastatin 40 mg Tablet 40 mg PO QAM Qty: 30 0RF losartan 25 mg Tablet 25 mg PO QPM Qty: 30 0RF metoprolol succinate 25 mg Tablet Extended Release 24 Hr 25 mg PO BID Qty: 60 0RF aspirin 81 mg Tablet,Delayed Release (Dr/Ec) 81 mg PO QAM Qty: 30 0RF azelastine 137 mcg (0.1 %) Aerosol,[place] 1 spray NA BID Qty: 30 0RF fluticasone propionate 50 mcg/actuation [place],Suspension 2 spray KEENA BID Qty: 16 0RF prednisone 20 mg Tablet 40 mg PO UD Qty: 18 0RF Rx Instructions: 40 mg daily for 5 days, then 20 mg daily for 5 days, then 10 mg daily for 5 days and stop. benzonatate 100 mg Capsule 100 mg PO TID 5 Days Qty: 15 0RF codeine-guaifenesin [Guaiatussin AC] 10-100 mg/5 mL Liquid 5 ml PO Q6H PRN (Reason: cough) 5 Days Qty: 120 0RF Continued Trelegy Ellipta 100-62.5-25 mcg blister with device 1 ea INHALATION QAM famotidine 20 mg tablet 20 mg PO QAM ipratropium-albuterol 0.5 mg-3 mg(2.5 mg base)/3 mL solution for nebulization 3 ml INHALATION Q6 PRN (Reason: cough,shortness of breath) Qty: 20 0RF levalbuterol tartrate 45 mcg/actuation HFA aerosol inhaler 1 puff INHALATION Q4 PRN (Reason: Wheezing) Qty: 20 0RF perflutren lipid microspheres 1.956 mg ONCE gabapentin 800 mg tablet 800 mg PO UD Discontinued metoprolol succinate 25 mg tablet extended release 24 hr 25 mg PO QAM prednisone 10 mg tablet 10 mg PO UD Rx Instructions: take 4 tabs daily x 3 days,then 3 tabs for 3 days, 2 tabs for 3 days,1 tablet for 3 days. end date 01/30/23 Discharge Orders: Discharge Order (Routine); Ordered 01/31/23 Ordered By: Herberth Whalen Admission Data Admit Date/Time: 01/26/23 21:24 Attending Provider: Herberth Whalen Admit Provider: Arik Wells Primary Care Provider: Carol De La Cruz Other Providers: Arik Wells ; Roxy Guy ; Harjinder Ramírez ; Antonio Calixto ; Brien Davis ; Carlo Schulz ; Curly Hampton ; Franco Saxena Rebecca K ; Halley Odonnell ; Roxy Burkett ; Jorge Craft ; Stephen Sparks ; Will Narayanan ; Edward Jamison ; Roverto Pendleton ; Rick Valdez ; Inna Rivas
[2023-02-01 08:03] LABS: Albumin 3.4 g/dL (3.8-4.8); Alpha 1 Globulin 0.3 g/dL (0.2-0.3); Alpha 2 Globulin 0.8 g/dL (0.5-0.9); Beta-1-Globulin 0.3 g/dL (0.4-0.6); Beta-2-Globulin 0.4 g/dL (0.2-0.5); Gamma Globulin 0.8 g/dL (0.8-1.7); Monoclonal Protein Band 1 DNR g/dL (NONE DETECTED); Monoclonal Protein Band 2 DNR g/dL (NONE DETECTED); Monoclonal Protein Band 3 DNR g/dL (NONE DETECTED); Total Protein 6.2 g/dL (6.1-8.1)
--- NOTE | 2023-02-05 09:46 | Coding Query ---
CODING QUERY To promote full compliance with coding requirements relating to patient care, provider participation is requested in all cases of health informatics instructor uncertainty. Please assist us with the question(s) below: Coding Question(s): Cardiology documented acute hypoxemic respiratory failure. Please clarify if you agree with this diagnosis or not. Physician's Response(s): ( ) AGREE with acute hypoxemic respiratory failure ( x ) DISAGREE with acute hypoxemic respiratory failure Thank you Kenya Corcoran Principal Diagnosis: "that condition established after study, to be chiefly responsible for occasioning the admission of the patient to the hospital for care." Co-Existing Principal Diagnosis: "when two or more diagnoses equally meet the criteria for principal diagnosis as determined by the circumstances of admission, diagnostic work up, and/or therapy provided, and the Alphabetic Index, Tabular List, or another coding guideline does not provide sequencing direction, any one of the diagnoses may be sequenced first." "When the physician has documented what appears to be a current diagnosis in the body of the record, but has not included the diagnosis in the final diagnostic statement, the physician should be asked whether the diagnosis should be added." (Source Coding [facility] 2 QTR90. p3-4) [place]
== END 2023-01-31 15:29 | disposition home or self-care (01) | DRG 204 ==
LOC: ED 17:36 → 2S 21:24

== ENCOUNTER 2025-08-06 09:16 | Inpatient (IN) ==
--- NOTE | 2025-08-06 09:39 | Emergency Department Note ---
Impression & Plan Abdominal carcinomatosis, Pleural effusion on left, Acute upper abdominal pain, ELIZABETH (acute kidney injury) ED Provider Note NAME: JONATHAN HERNANDEZ AGE: 60 SEX: F : 1965 ARRIVES VIA: Walk-In INFORMANT: Patient, ED PROVIDER(S): Chuck Park DO CHIEF COMPLAINT: Abdominal pain HPI: The patient is a 60-year-old female who presented to the emergency department for an evaluation of abdominal pain. The patient states she has had upper abdominal pain which began initially in her left upper quadrant but now is epigastric. She states she is been on a steroid for pneumonia recently. She denies having any lower extremity swelling or pain. The patient does complain of some back pain. The patient denies having any black or tarry stools. The patient states the pain became much worse today so she presented to the emergency department for further evaluation. She does not take any blood thinners. ROS: See above HPI for pertinent positives & negatives. A total of 10 systems reviewed and were otherwise negative. PAST MEDICAL HISTORY: See Below PAST SURGICAL HISTORY: See Below FAMILY HISTORY: See Below SOCIAL HISTORY: See Below HOME MEDICATIONS: See Below ALLERGIES: See Below VITALS: See Below PHYSICAL EXAMINATION: GENERAL: Patient is awake alert in no acute distress patient is resting comfortably and showing no signs of anxiety EYES: The conjunctivae are clear. The pupils are round and reactive. EARS, NOSE, MOUTH AND THROAT: The nose is without any evidence of any deformity. NECK: The neck is nontender and supple. RESPIRATORY: Normal respiratory effort is noted there is no evidence of wheezing rhonchi or rales CARDIOVASCULAR: Regular rate and rhythm noted there no murmurs rubs or gallops normal S1 normal S2. GASTROINTESTINAL: The abdomen was distended. There is significant supraumbilical tenderness to palpation. There is guarding in the left upper quadrant as well as the supraumbilical region. BACK: No midline tenderness or or step-off noted range of motion in flexion extension as well as rotation no signs of muscle spasm noted MUSCULOSKELETAL/EXTREMITIES: There is no evidence of gross deformity full range of motion is noted in the hips and shoulders. SKIN: There is no obvious evidence of any rash. There are no petechiae, pallor or cyanosis noted. NEUROLOGIC: Patient is awake alert and oriented x3 MEDICAL DECISION MAKING: The patient is a 60-year-old female who presented to the emergency department for an evaluation of abdominal pain. The patient had upper abdominal pain and presented to the emergency department. The patient's physical exam was consistent with possible surgical abdomen. For this reason she was treated with IV fluids IV pain medication as well as IV antibiotics. I discussed the patient's laboratory and radiographic studies with her. She does appear to have signs of a pleural effusion as well as carcinomatosis of the peritoneum. She may have an area that could be consistent with an ovarian source. I discussed the patient's radiographic studies with her at length. She does understand the severity of this diagnosis. I do feel the patient would do better as an inpatient for pain control as well as for further workup and diagnosis. For this reason I [facility] have agreed to evaluate the patient in the emergency department. Triage Nursing notes reviewed. Prior medical records reviewed Vital Signs: reviewed and remarkable for no significant abnormalities Differential diagnosis: Etiologies such as appendicitis, diverticulitis, obstruction, inflammatory bowel disease, renal colic, PUD, biliary pathology, pancreatitis, mesenteric ischemia, aortic pathology, infections, genitourinary, UTI, perforated viscus, as well as others were entertained. ER treatment provided: See below Diagnostics interpreted by me: ECG: EKG was obtained in the emergency department. My interpretation is sinus rhythm at 99 bpm. There is no ectopy. Nonspecific ST abnormalities were noted. PVCs were noted. This was compared to a tracing from January 28, 2023. No specific changes were noted. Cardiac Monitoring: An order was placed for continuous cardiac monitoring. The monitor shows a rate of 85 bpm with sinus rhythm. Laboratory studies: As stated above and show below. Imaging studies: See below. Radiographic imaging was reviewed by myself Consultation(s): I discussed this case with Caridad [facility]. Past Med/Surg History Problem List (Updated 08/06/25 @ 14:08 by Chuck Park DO) ELIZABETH (acute kidney injury) (Acute) Acute upper abdominal pain (Acute) Pleural effusion on left (Acute) Abdominal carcinomatosis (Acute) NSVT (nonsustained ventricular tachycardia) Allergic rhinitis Abnormal echocardiogram NYHA class 3 systolic congestive heart failure with reduced left ventricular function Systolic dysfunction Atrial tachycardia Acute hypoxemic respiratory failure (Acute) SVT (supraventricular tachycardia) (Acute) Acute dehydration (Acute) Exertional dyspnea (Acute) Abnormal cardiovascular stress test (Acute) COPD exacerbation (Acute) Depression Multifocal pneumonia (Acute) JAROCHO (obstructive sleep apnea) DVT prophylaxis Prolonged QT interval (Acute) Sinus tachycardia RSV (respiratory syncytial virus infection) (Acute) SOB (shortness of breath) (Acute) Medical History Reflex sympathetic dystrophy of other specified site Asthma with COPD COPD (chronic obstructive pulmonary disease) Social History Smoking Status: Former smoker Second Hand Exposure: No; Do You Dip or Chew Tobacco: No; Hx Alcohol Use: No Hx Substance Use: No Preferred Language: Arabic Communication Ability: Effective Manager Green Required: No Beliefs That Will Affect Care: None Current Living Situation: Alone Current Living Situation Comment: home alone Feels Safe at Home: Yes Assistive Devices: CPAP and Nebulizer Allergies Allergies Allergy/AdvReac Type Severity Reaction Status Date / Time No Known Allergies Allergy Unverified 01/26/23 20:10 Home Meds Home Medications Medication Instructions Recorded Confirmed famotidine 20 mg tablet 0 mg PO QAM 10/18/22 08/06/25 fluticasone fur. 100 mcg-umeclid 1 ea inhalation QAM 10/18/22 08/06/25 62.5 mcg-vilant 25 mcg inhalat.powder (Trelegy Ellipta) gabapentin 800 mg tablet 0 mg PO UD 01/26/23 08/06/25 albuterol sulfate 90 mcg/actuation 2 puff inhalation Q6H PRN 08/06/25 08/06/25 aerosol inhaler (Ventolin HFA) cough/sob/wheezing azelastine 137 mcg (0.1 %) nasal 0 spray NA BID 08/06/25 08/06/25 spray fluticasone propionate 50 0 spray KEENA BID 08/06/25 08/06/25 mcg/actuation nasal spray,suspension ipratropium 0.5 mg-albuterol 3 mg 3 ml inhalation Q4H PRN 08/06/25 08/06/25 (2.5 mg base)/3 mL nebulization cough,shortness of breath soln levalbuterol tartrate 45 0 puff inhalation Q4 PRN Wheezing 08/06/25 08/06/25 mcg/actuation aerosol inhaler pantoprazole 40 mg tablet,delayed 40 mg PO DAILY 08/06/25 08/06/25 release prednisone 20 mg tablet 20 mg PO UD 08/06/25 08/06/25 Previous Rx's Medication Instructions Recorded aspirin 81 mg tablet,delayed 81 mg PO QAM #30 tabs 01/31/23 release atorvastatin 40 mg tablet 40 mg PO QAM #30 tabs 01/31/23 losartan 25 mg tablet 25 mg PO QPM #30 tabs 01/31/23 metoprolol succinate 25 mg 25 mg PO BID #60 tabs 01/31/23 tablet,extended release 24 hr Results & Data (ED) Vital Signs Vital Signs - 24 hr 08/06/25 09:20 08/06/25 11:07 08/06/25 11:50 Temperature 36.4 C L Temperature Source Temporal Artery Scan Pulse Rate 111 H 92 H Pulse Rate [Apical] Respiratory Rate 18 Respiratory Effort / Characteristics Non-Labored Spontaneous Respiratory Depth Normal Respiratory Pattern Regular Blood Pressure 94/60 L Blood Pressure [Left Arm] Blood Pressure Mean 71 Blood Pressure Mean [Left Arm] Pulse Oximetry 96 86 L Oxygen Delivery Method Room Air Nasal Cannula Oxygen Flow Rate 0 Sepsis Recent Fever Within 48 Hours No Sepsis New/Unexplained Change in Mental Status Yes Sepsis Action Taken by Nursing Physician Notified Oxygen Flow Rate - Titration 2 Pulse Oximetry Post Tiitration 95 08/06/25 11:52 08/06/25 11:52 08/06/25 13:00 Temperature Temperature Source Pulse Rate 85 Pulse Rate [Apical] 87 85 Respiratory Rate 16 16 16 Respiratory Effort / Characteristics Non-Labored Spontaneous Non-Labored Spontaneous Respiratory Depth Respiratory Pattern Blood Pressure Blood Pressure [Left Arm] 98/61 L 114/61 Blood Pressure Mean Blood Pressure Mean [Left Arm] 73 78 Pulse Oximetry 95 95 94 Oxygen Delivery Method Nasal Cannula Nasal Cannula Nasal Cannula Oxygen Flow Rate 2 2 2 Sepsis Recent Fever Within 48 Hours Sepsis New/Unexplained Change in Mental Status Sepsis Action Taken by Nursing Oxygen Flow Rate - Titration Pulse Oximetry Post Tiitration Home Medications Current Medication List: was personally reviewed by me Laboratory Data Attestation: I reviewed the patient's lab results. 08/06/25 10:13 08/06/25 09:58 Lab Results 09/15/25 09/15/25 09/15/25 Range/Units 09:58 10:13 10:22 WBC 17.29 H (4.8-10.8) K/ul RBC 5.21 (4.20-5.40) M/uL Hgb 14.0 (12.0-16.0) g/dl POC Hgb 15.6 (12.0-16.0) g/dl Hct 44.9 (37.0-47.0) % POC Hct 46 (37-47) % MCV 86.2 (80.0-100.0) fL MCH 26.9 (25.0-34.0) pg MCHC 31.2 L (32.0-36.0) g/dL RDW Std Deviation 48.9 H (36.4-46.3) fL RDW Coeff of Tori 15.7 H (11.5-14.5) % Plt Count 294 (130-400) K/uL MPV 9.5 (9.4-12.4) fL Immature Gran % (Auto) 1.3 % Neut % (Auto) 85.8 % Lymph % (Auto) 7.1 % Bath % (Auto) 5.4 % Eos % (Auto) 0.2 % Baso % (Auto) 0.2 % Neut # (Auto) 14.84 H (1.40-6.50) K/uL Lymph # (Auto) 1.22 (1.20-3.40) K/uL Bath # (Auto) 0.94 H (0.11-0.59) K/uL Eos # (Auto) 0.03 (0.00-0.50) K/uL Baso # (Auto) 0.04 (0.00-0.20) K/uL Immature Gran # (Auto) 0.22 H (0.01-0.20) K/uL POC Sodium 137 (135-144) mmol/L Sodium 137 (136-145) mmol/L POC Potassium 3.8 (3.3-5.0) mmol/L Potassium 4.4 (3.5-5.1) mmol/L POC Chloride 96 L (101-112) mmol/L Chloride 100 (98-107) mmol/L Carbon Dioxide 28 (21-32) mmol/L POC Total CO2 30 (24-31) mmol/L Anion Gap 9 (3-11) POC Anion Gap 16.0 (16-25) mmol/L POC BUN 19 H (7-18) mg/dl BUN 16 (6-23) mg/dl Creatinine 1.35 H (0.6-1.2) mg/dl POC Creatinine 1.7 H (0.6-1.3) mg/dl Est Cr Clr Drug Dosing 59.2 ml/min eGFR 44.99 BUN/Creatinine Ratio 11.9 (10-20) Glucose 113 H (70-99(Fasting)) mg/dl POC Glucose (other) 120 H (70-99) mg/dl Calcium 8.8 (8.6-10.3) mg/dl POC Ioniz Calcium Tony 1.14 (1.12-1.32) mmol/l Total Bilirubin 1.9 H (0.2-1.0) mg/dl AST 17 (13-39) U/L ALT 20 (7-52) U/L Alkaline Phosphatase 77 (34-104) U/L Troponin I High Sens 5.7 (0-14) pg/ml Total Protein 6.7 (6.0-8.3) gm/dl Albumin 3.9 (3.4-5.0) gm/dl Globulin 2.8 (2.5-4.0) gm/dl Albumin/Globulin Ratio 1.4 (0.9-2) Lipase 15 (11-82) U/L Urine Comment 08/06/25 Range/Units 13:21 WBC (4.8-10.8) K/ul RBC (4.20-5.40) M/uL Hgb (12.0-16.0) g/dl POC Hgb (12.0-16.0) g/dl Hct (37.0-47.0) % POC Hct (37-47) % MCV (80.0-100.0) fL MCH (25.0-34.0) pg MCHC (32.0-36.0) g/dL RDW Std Deviation (36.4-46.3) fL RDW Coeff of Tori (11.5-14.5) % Plt Count (130-400) K/uL MPV (9.4-12.4) fL Immature Gran % (Auto) % Neut % (Auto) % Lymph % (Auto) % Bath % (Auto) % Eos % (Auto) % Baso % (Auto) % Neut # (Auto) (1.40-6.50) K/uL Lymph # (Auto) (1.20-3.40) K/uL Bath # (Auto) (0.11-0.59) K/uL Eos # (Auto) (0.00-0.50) K/uL Baso # (Auto) (0.00-0.20) K/uL Immature Gran # (Auto) (0.01-0.20) K/uL POC Sodium (135-144) mmol/L Sodium (136-145) mmol/L POC Potassium (3.3-5.0) mmol/L Potassium (3.5-5.1) mmol/L POC Chloride (101-112) mmol/L Chloride (98-107) mmol/L Carbon Dioxide (21-32) mmol/L POC Total CO2 (24-31) mmol/L Anion Gap (3-11) POC Anion Gap (16-25) mmol/L POC BUN (7-18) mg/dl BUN (6-23) mg/dl Creatinine (0.6-1.2) mg/dl POC Creatinine (0.6-1.3) mg/dl Est Cr Clr Drug Dosing ml/min eGFR BUN/Creatinine Ratio (10-20) Glucose (70-99(Fasting)) mg/dl POC Glucose (other) (70-99) mg/dl Calcium (8.6-10.3) mg/dl POC Ioniz Calcium Tony (1.12-1.32) mmol/l Total Bilirubin (0.2-1.0) mg/dl AST (13-39) U/L ALT (7-52) U/L Alkaline Phosphatase (34-104) U/L Troponin I High Sens (0-14) pg/ml Total Protein (6.0-8.3) gm/dl Albumin (3.4-5.0) gm/dl Globulin (2.5-4.0) gm/dl Albumin/Globulin Ratio (0.9-2) Lipase (11-82) U/L Urine Comment Administered Medications Morphine Sulfate (Morphine Sulfate 4 Mg/Ml 1 Ml Carp\Vial) 4 mg IV Q15M PRN PRN Reason: Pain Stop: 08/20/25 09:32 Last Admin: 08/06/25 10:22 Dose: 4 mg Documented By: RUMA Discontinued Medications Sodium Chloride (Nss) 500 mls @ 999 mls/hr IV .Q31M STA Stop: 08/06/25 10:03 Last Admin: 08/06/25 10:13 Dose: 999 mls/hr Documented By: DAVEY Sodium Chloride (Nss) 500 mls @ 999 mls/hr IV .Q31M ONE Stop: 08/06/25 11:18 Last Admin: 08/06/25 11:32 Dose: 999 mls/hr Documented By: JOSE Piperacillin Sod/Tazobactam Sod (Zosyn) 4.5 gm in 100 mls @ 200 mls/hr IV NOW ONE; Protocol Stop: 08/06/25 11:17 Last Infusion: 08/06/25 13:23 Dose: Infused Documented By: Admin: 08/06/25 11:30 Dose: 200 mls/hr Documented By: JOSE Ioversol (Optiray 320 125ml) 118 ml IV ONCE ONE Stop: 08/06/25 11:24 Last Admin: 08/06/25 11:23 Dose: 118 ml Documented By: SHERRY Ondansetron HCl (Ondansetron Inj 2 Mg/Ml 2 Ml Vial) 4 mg IV NOW STA Stop: 08/06/25 09:34 Last Admin: 08/06/25 10:14 Dose: 4 mg Documented By: DAVEY Imaging Data Attestation: I personally reviewed and interpreted this imaging study as follows: My Impression: CT the abdomen and pelvis was obtained in the emergency department. My interpretation is left-sided pleural effusion with carcinomatosis noted, final report below. Radiologist's Impression: Abdomen/Pelvis CT 08/06/25 09:33 CT SCAN OF THE ABDOMEN AND PELVIS WITH IV CONTRAST CLINICAL HISTORY: Abdominal pain. COMPARISON STUDY: None. TECHNIQUE: Following the IV administration of 118 cc of Optiray 320, CT scan of the abdomen and pelvis is performed from the lung bases to the proximal femora. Images are reviewed in the axial, sagittal, and coronal planes. IV contrast was administered without complication. A dose lowering technique was utilized adhering to the principles of ALARA. FINDINGS: Please note that the chest CT will be reported separately. A moderate size right pleural effusion is better depicted on that exam. No pneumatosis, free air or portal venous gas is present. There are no hepatic lesions. There is no biliary or pancreatic ductal dilatation. The gallbladder is mildly distended. The spleen, adrenal glands and pancreas are unremarkable. There is a nonobstructing 9 mm calculus within the right renal pelvis. Moderate right and mild left renal cortical thinning is present. There are no ureteral calculi. Bladder wall thickening is accentuated by underdistention. Of note, there is extensive omental nodularity consistent with omental caking. There is a mixed solid and cystic right adnexal lesion. This measures 8.9 x 6.3 cm. The solid component measures 5 x 4.2 cm. Multiloculated pockets of fluid within the pelvis are noted with associated peritoneal thickening. Peritoneal thickening is irregular. There is a small amount of abdominal ascites. There are prominent lymph nodes adjacent to the distal descending thoracic aorta. Note is made of a 1.9 x 1.6 cm lymph node versus implant adjacent to the gastric cardia. There is a 2 x 1.5 cm implant anterior to the ascending colon. Mildly enlarged aortocaval lymph node on image 173 measures 1 x 0.7 cm. There is no evidence for a bowel obstruction. There is colonic diverticulosis without evidence for acute diverticulitis. There is no evidence for acute appendicitis. IMPRESSION: 1. Extensive omental nodularity consistent with omental caking. Additional peritoneal implants. The findings are consistent with peritoneal carcinomatosis. Mixed cystic and solid right adnexal lesion favors a primary right ovarian neoplasm. 2. Associated multiloculated pockets of fluid within the pelvis with nodular peritoneal thickening also likely neoplastic in etiology. A superimposed infection is within the differential but considered less likely. 3. Moderate right pleural effusion. Although nonspecific, this may be malignant. 4. Mildly enlarged lymph node adjacent to the gastric fundus. Prominent para- aortic lymph nodes. 5. Nonobstructing 9 mm right renal pelvis calculus. No hydronephrosis. ACT 112: Negative or not required by law. Electronically signed by: Heber James M.D. 08/06/2025 12:18 PM Chest X-Ray 08/06/25 09:33 XR chest 1V portable CLINICAL HISTORY: abd COMPARISON STUDY: 01/30/2023 FINDINGS: There is mild cardiomegaly with mild pulmonary vascular congestion. There is interval hazy opacity at the right base. No other consolidation or pleural effusion seen. No pneumothorax. IMPRESSION: 1. Mild CHF. 2. Right lung base opacity could represent atelectasis, pneumonia, or small right pleural effusion. ACT 112: Negative or not required by law. Electronically signed by: Harjinder Cook M.D. 08/06/2025 10:47 AM Chest CTA 08/06/25 10:53 CT ANGIOGRAM OF THE CHEST CLINICAL HISTORY: Shortness of breath. Evaluate for pulmonary embolus. COMPARISON STUDY: Chest radiograph performed earlier today. Chest CT October 18, 2022. TECHNIQUE: Following the IV administration of 118 cc of Optiray 320, CT angiogram of the chest was performed from the upper abdomen to the thoracic inlet utilizing the pulmonary embolus protocol. Images are reviewed in the axial, sagittal, and coronal planes. 3-D MIPS images are created and assessed. IV contrast was administered without complication. A dose lowering technique was utilized adhering to the principles of ALARA. CT DOSE: 3125.67 mGy.cm FINDINGS: No pulmonary emboli are identified. There is no thoracic aortic dissection. The heart is mildly enlarged. There is no pericardial effusion. There is no pneumothorax. A moderate size right pleural effusion is present. Subpleural right lower lobe opacity with volume loss favors atelectasis. There is moderate emphysema. The abdomen and pelvis CT will be reported separately. Omental/peritoneal nodularity is better depicted on that examination. IMPRESSION: 1. No pulmonary emboli identified. 2. Moderate size right pleural effusion. Although nonspecific, a malignant effusion cannot be excluded given peritoneal/omental nodularity which is better depicted on the CT of the abdomen and pelvis. 3. Emphysema. ACT 112: Negative or not required by law. Electronically signed by: Heber James M.D. 08/06/2025 12:04 PM Discharge Plan Visit Data Chief Complaint: Abdominal Pain Stated Complaint: BLOATING, ABD PAIN, DIZZY ED Provider: Chuck Park Discharge Problem: Abdominal carcinomatosis, Pleural effusion on left, Acute upper abdominal pain, ELIZABETH (acute kidney injury) Patient Disposition: Being Evaluated by Hospitalist Condition: Fair Forms Stand Alone Forms: My [employer] Prescriptions Prescriptions: No Action Trelegy Ellipta 100-62.5-25 mcg blister with device 1 ea INHALATION QAM famotidine 20 mg tablet 0 mg PO QAM Patient Comments: last filled 06/15 30 day supply gabapentin 800 mg tablet 0 mg PO UD Patient Comments: 08/06- no fill history unable to verify atorvastatin 40 mg Tablet 40 mg PO QAM Qty: 30 0RF losartan 25 mg Tablet 25 mg PO QPM Qty: 30 0RF metoprolol succinate 25 mg Tablet Extended Release 24 Hr 25 mg PO BID Qty: 60 0RF aspirin 81 mg Tablet,Delayed Release (Dr/Ec) 81 mg PO QAM Qty: 30 0RF Patient Comments: otc unable to verify prednisone 20 mg tablet 20 mg PO UD pantoprazole 40 mg tablet,delayed release (DR/EC) 40 mg PO DAILY albuterol sulfate [Ventolin HFA] 90 mcg/actuation HFA aerosol inhaler 2 puff INHALATION Q6H PRN (Reason: cough/sob/wheezing) ipratropium-albuterol 0.5 mg-3 mg(2.5 mg base)/3 mL solution for nebulization 3 ml INHALATION Q4H PRN (Reason: cough,shortness of breath) azelastine 137 mcg (0.1 %) spray,non-aerosol 0 spray NA BID Patient Comments: last filled 06/02 31 day supply fluticasone propionate 50 mcg/actuation spray,suspension 0 spray KEENA BID Patient Comments: last filled 12/19 30 day supply levalbuterol tartrate 45 mcg/actuation HFA aerosol inhaler 0 puff INHALATION Q4 PRN (Reason: Wheezing) Patient Comments: 08/06- no fill history unable to verify Referrals Referrals: Carol De La Cruz PA-C [Primary Care Provider] -
[2025-08-06] MEDS: SODIUM CHLORIDE 0.9% 500 ML IV STA (10:13)
[2025-08-06] MEDS: ONDANSETRON INJ 2 MG/ML 2 ML VIAL IV STA ×2 (10:14→16:16)
[2025-08-06] MEDS: MoRPHine SULFATE 4 MG/ML 1 ML CARP\\VIAL IV PRN (10:22)
[2025-08-06 10:44] LABS: Alanine Aminotransferase 20.0 U/L (7-52); Albumin Globulin Ratio 1.4 (0.9-2); Alkaline Phosphatase 77.0 U/L (34-104); Anion Gap 9.0 (3-11); Bilirubin,Total 1.9 mg/dl (0.2-1.0); Blood Urea Nitrogen 16.0 mg/dl (6-23); Calcium 8.8 mg/dl (8.6-10.3); Carbon Dioxide 28.0 mmol/L (21-32); Chloride 100.0 mmol/L (98-107); Creatinine Clr Calc Pharmacy 59.2 ml/min; Globulin 2.8 gm/dl (2.5-4.0); Glucose 113.0 mg/dl (70-99(Fasting)); Lipase 15.0 U/L (11-82); Sodium 137.0 mmol/L (136-145); Total Protein 6.7 gm/dl (6.0-8.3)
[2025-08-06 10:45] LABS: Hematocrit (blood only) 44.9 % (37.0-47.0); Hemoglobin 14.0 g/dl (12.0-16.0); Immature Granulocytes # (auto) 0.22 K/uL (0.01-0.20); Immature Granulocytes % (auto) 1.3 %; Mean Corpuscular Hemoglobin 26.9 pg (25.0-34.0); Mean Corpuscular Volume 86.2 fL (80.0-100.0); Platelet Count 294 K/uL (130-400); RDW Standard Deviation 48.9 fL (36.4-46.3); Red Blood Count 5.21 M/uL (4.20-5.40); White Blood Count 17.29 K/ul (4.8-10.8)
--- NOTE | 2025-08-06 10:48 | XRay Report ---
XR chest 1V portable CLINICAL HISTORY: abd COMPARISON STUDY: 01/30/2023 FINDINGS: There is mild cardiomegaly with mild pulmonary vascular congestion. There is interval hazy opacity at the right base. No other consolidation or pleural effusion seen. No pneumothorax. IMPRESSION: 1. Mild CHF. 2. Right lung base opacity could represent atelectasis, pneumonia, or small right pleural effusion. ACT 112: Negative or not required by law. Electronically signed by: Harjinder Cook M.D. 08/06/2025 10:47 AM
[2025-08-06 10:53] LABS: Potassium 4.4 mmol/L (3.5-5.1)
[2025-08-06] MEDS: OPTIRAY 320 125ml IV ONE (11:23)
[2025-08-06] MEDS: PIPERACILLIN/TAZOBACTAM 4.5 GM/100 ML BAG IV ONE (11:30)
[2025-08-06] MEDS: SODIUM CHLORIDE 0.9% 500 ML IV ONE (11:32)
--- NOTE | 2025-08-06 12:06 | CT Scan Report ---
CT ANGIOGRAM OF THE CHEST CLINICAL HISTORY: Shortness of breath. Evaluate for pulmonary embolus. COMPARISON STUDY: Chest radiograph performed earlier today. Chest CT October 18, 2022. TECHNIQUE: Following the IV administration of 118 cc of Optiray 320, CT angiogram of the chest was pe rformed from the upper abdomen to the thoracic inlet utilizing the pulmonary embolus protocol. Images are reviewed in the axial, sagittal, and coronal planes. 3-D MIPS images are created and assessed. I V contrast was administered without complication. A dose lowering technique was utilized adhering to the principles of ALARA. CT DOSE: 3125.67 mGy.cm FINDINGS: No pulmonary emboli are identified. There is no thoracic aortic dissection. The heart is mi ldly enlarged. There is no pericardial effusion. There is no pneumothorax. A moderate size right pleu ral effusion is present. Subpleural right lower lobe opacity with volume loss favors atelectasis. The re is moderate emphysema. The abdomen and pelvis CT will be reported separately. Omental/peritoneal n odularity is better depicted on that examination. IMPRESSION: 1. No pulmonary emboli identified. 2. Moderate size right pleural effusion. Although nonspecific, a malignant effusion cannot be exclude d given peritoneal/omental nodularity which is better depicted on the CT of the abdomen and pelvis. 3. Emphysema. ACT 112: Negative or not required by law. Electronically signed by: Heber James M.D. 08/06/2025 12:04 PM
--- NOTE | 2025-08-06 12:20 | CT Scan Report ---
CT SCAN OF THE ABDOMEN AND PELVIS WITH IV CONTRAST CLINICAL HISTORY: Abdominal pain. COMPARISON STUDY: None. TECHNIQUE: Following the IV administration of 118 cc of Optiray 320, CT scan of the abdomen and pelvi s is performed from the lung bases to the proximal femora. Images are reviewed in the axial, sagittal , and coronal planes. IV contrast was administered without complication. A dose lowering technique wa s utilized adhering to the principles of ALARA. FINDINGS: Please note that the chest CT will be reported separately. A moderate size right pleural ef fusion is better depicted on that exam. No pneumatosis, free air or portal venous gas is present. The re are no hepatic lesions. There is no biliary or pancreatic ductal dilatation. The gallbladder is mi ldly distended. The spleen, adrenal glands and pancreas are unremarkable. There is a nonobstructing 9 mm calculus within the right renal pelvis. Moderate right and mild left renal cortical thinning is p resent. There are no ureteral calculi. Bladder wall thickening is accentuated by underdistention. Of note, there is extensive omental nodularity consistent with omental caking. There is a mixed solid an d cystic right adnexal lesion. This measures 8.9 x 6.3 cm. The solid component measures 5 x 4.2 cm. M ultiloculated pockets of fluid within the pelvis are noted with associated peritoneal thickening. Per itoneal thickening is irregular. There is a small amount of abdominal ascites. There are prominent ly mph nodes adjacent to the distal descending thoracic aorta. Note is made of a 1.9 x 1.6 cm lymph node versus implant adjacent to the gastric cardia. There is a 2 x 1.5 cm implant anterior to the ascendi ng colon. Mildly enlarged aortocaval lymph node on image 173 measures 1 x 0.7 cm. There is no evidenc e for a bowel obstruction. There is colonic diverticulosis without evidence for acute diverticulitis. There is no evidence for acute appendicitis. IMPRESSION: 1. Extensive omental nodularity consistent with omental caking. Additional peritoneal implants. The f indings are consistent with peritoneal carcinomatosis. Mixed cystic and solid right adnexal lesion fa vors a primary right ovarian neoplasm. 2. Associated multiloculated pockets of fluid within the pelvis with nodular peritoneal thickening al so likely neoplastic in etiology. A superimposed infection is within the differential but considered less likely. 3. Moderate right pleural effusion. Although nonspecific, this may be malignant. 4. Mildly enlarged lymph node adjacent to the gastric fundus. Prominent para-aortic lymph nodes. 5. Nonobstructing 9 mm right renal pelvis calculus. No hydronephrosis. ACT 112: Negative or not required by law. Electronically signed by: Heber James M.D. 08/06/2025 12:18 PM
[2025-08-06 14:11] LABS: Appearance Urine Clear (Clear); Bacteria Urine Automated None Seen (None Seen); Glucose Urine UA Negative (Negative); WBC Urine Automated 0-5 /hpf (0-5)
[2025-08-06] MEDS ORDERED: MoRPHine SULFATE 4 MG/ML 1 ML CARP\\VIAL IV PRN (14:50)
--- NOTE | 2025-08-06 15:00 | History & Physical Report ---
Date of Service August 06, 2025 Assessment & Plan (1) Peritoneal carcinomatosis: (2) Pleural effusion on right: (3) Mass of right ovary: (4) ELIZABETH (acute kidney injury): (5) Asthma with COPD: (6) JAROCHO (obstructive sleep apnea): Plan This is a 60 y/o female with asthma/COPD, RSD, prior tobacco abuse, hx depression, hx lung nodules, JAROCHO, HFrEF, and other history as outlined below who presented to the ED today with two weeks of intermittent abdominal pain, severe episode today. Work-up in the ED revealed a moderate size right pleural effusion but no PE on CTA chest. CT of the abdomen pelvics was personally reviewed - shows likely peritoneal carcinomatosis, right ovarian mass, and multiloculated pockets of fluid in the pelvis. Labs showed a WBC count of 17.29, elevation may be due to infection and/or recent steroids. Creatinine also noted to be mildly elevated at 1.35 (baseline appears to be around 0.9-1.0). Pt was referred for admission for further evaluation and management including pain control. #Upper abdominal pain #Peritoneal carcinomatosis on imaging #Right ovarian mass #Right pleural effusion - Admit to med telemetry - Pain control - oral and IV ordered - Check CEA, CA 125, and CA 19-9 - Pelvic US for further evaluation of mass, fluid collections to determine if candidate for diagnostic paracentesis so that fluid can be sent for cytology - If unable to get fluid for cytology from peritoneum, consider pulmonary evaluation for possible thoracentesis although less clear if right pleural effusion is due to the possible malignancy or unrelated - Consult gynecology for additional recommendations - Continue PRN O2 to maintain sats 90% - Continue empiric Zosyn for now - Repeat CBC, BMP in the AM #ELIZABETH - suspect related to decreased oral intake over the last few weeks - Gentle IVF, especially with IV contrast given today - Trend BMP #Asthma with COPD - recent exacerbation noted, finished course of prednisone two days ago - Continue outpatient regimen #JAROCHO - difficulty tolerating CPAP due to nasal dryness and pain so not consistently using #GERD - Chronic, continue PPI therapy #Dyslipidemia - Chronic, continue statin therapy Pt seen and reviewed with collaborating physician, Dr. Henry. Plan of care discussed and as outlined above. Code status: full code DVT prophylaxis: SCDs, Lovenox Donald Hood PA-C History of Present Illness Chief Complaint: abdominal pain Primary Care Provider: Carol De La Cruz PA-C This is a 60 y/o female with asthma/COPD, RSD, prior tobacco abuse, hx depression, hx lung nodules, JAROCHO, HFrEF, and other history as outlined below who presented to the ED today with two weeks of intermittent abdominal pain, severe episode today. Pt reports she first noticed pain in her left upper abdomen about two weeks ago, describes pain as sharp and coming in waves. Since then, she has continued with episodes of sharp upper abdominal pain bilaterally. Pain seemed to be worse after eating but no association with bowel pattern. She has a hx of IBS with alternating diarrhea and constipation so bowel pattern is irregular at baseline. She has noted some occasional mild nausea but no vomiting. She has also noted progressive bloating over the last two weeks, but attributed this to recent courses of prednisone for her breathing. Today, she felt okay when she got up for work around 3 am but shortly after she got to work she developed severe upper abdominal pain and right-sided chest pain so she came to the ED for evaluation. She went through menopause in her 40s with last menstrual cycle at age 49. Denies post-menopausal bleeding. She follows with PCP for routine pelvic exams and pap smears, denies hx of abnormal pap that she can recall. Was due for an exam this fall. She has a remote hx of ovarian cyst that ruptured when she was in her 20s. She denies any family history of [employer] malignancy. Over the last 3-4 weeks, she has also noticed increased respiratory symptoms, which she attributed to her COPD. She was prescribed antibiotics and prednisone by PCP with only partial improvement in symptoms so prednisone course extended and prescribed a second antibiotic. Respiratory symptoms have mostly improved but still with some mild dyspnea on exertion. Taking Trelegy, uses nebs and rescue inhaler 2-3x/day. Allergies Allergy/AdvReac Type Severity Reaction Status Date / Time No Known Allergies Allergy Unverified 01/26/23 20:10 Home Medications Medication Instructions Recorded Confirmed Type fluticasone fur. 100 mcg-umeclid 1 ea inhalation QAM 10/18/22 08/06/25 History 62.5 mcg-vilant 25 mcg inhalat.powder (Trelegy Ellipta) aspirin 81 mg tablet,delayed 81 mg PO QAM #30 tabs 01/31/23 08/06/25 Rx release atorvastatin 40 mg tablet 40 mg PO QAM #30 tabs 01/31/23 08/06/25 Rx metoprolol succinate 25 mg 25 mg PO BID #60 tabs 01/31/23 08/06/25 Rx tablet,extended release 24 hr albuterol sulfate 90 mcg/actuation 2 puff inhalation Q6H PRN 08/06/25 08/06/25 History aerosol inhaler (Ventolin HFA) cough/sob/wheezing azelastine 137 mcg (0.1 %) nasal 1 spray NA DAILY 08/06/25 08/06/25 History spray fluticasone propionate 50 2 spray KEENA DAILY 08/06/25 08/06/25 History mcg/actuation nasal spray,suspension ipratropium 0.5 mg-albuterol 3 mg 3 ml inhalation Q4H PRN 08/06/25 08/06/25 History (2.5 mg base)/3 mL nebulization cough,shortness of breath soln loratadine 10 mg tablet 10 mg PO DAILY 08/06/25 08/06/25 History losartan 25 mg tablet 25 mg PO DAILY 08/06/25 08/06/25 History montelukast 10 mg tablet 10 mg PO HS 08/06/25 08/06/25 History pantoprazole 40 mg tablet,delayed 40 mg PO DAILY 08/06/25 08/06/25 History release Past Med/Surg History Problem List (Updated 08/06/25 @ 16:23 by Stacey Hood PA-C) Mass of right ovary Peritoneal carcinomatosis Pleural effusion on right ELIZABETH (acute kidney injury) (Acute) Acute upper abdominal pain (Acute) Abdominal carcinomatosis (Acute) Medical History (Updated 08/06/25 @ 16:23 by Stacey Hood PA-C) Allergic rhinitis NYHA class 3 systolic congestive heart failure with reduced left ventricular f unction Atrial tachycardia NSVT (nonsustained ventricular tachycardia) Abnormal cardiovascular stress test Depression JAROCHO (obstructive sleep apnea) Reflex sympathetic dystrophy of other specified site Asthma with COPD COPD (chronic obstructive pulmonary disease) Surgical History (Updated 08/06/25 @ 15:37 by Stacey Hood PA-C) 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 S/P tubal ligation S/P cataract surgery Family History (Updated 08/06/25 @ 15:34 by Stacey Hood PA-C) Mother Dementia Sister Dementia Aunt Dementia Denies family history of Ovarian cancer Breast cancer Social History Smoking Status: Former smoker Second Hand Exposure: No; Do You Dip or Chew Tobacco: No; Hx Alcohol Use: No Hx Substance Use: No Preferred Language: Pashto Communication Ability: Effective Program Clerk Required: No Beliefs That Will Affect Care: None Current Living Situation: Alone Current Living Situation Comment: home alone Feels Safe at Home: Yes Assistive Devices: CPAP and Nebulizer Review of Systems Review of Systems: All systems reviewed & are unremarkable except as noted in HPI & below Physical Exam Physical Exam: General: awake, alert, NAD HEENT: no scleral icterus, moist oral mucosa Neck: supple, trachea midline Heart: RRR, no M/G/R Lungs: diminished at bases but no wheezing or rhonchi Abdomen: softly distended, mild diffuse upper abdominal tenderness (left > right) but no guarding or rebound, +BS Extremities: no pedal edema, distal pulses intact and equal Skin: warm, dry, no jaundice Neurologic: Ox3, no confusion or dysarthria, moving all extremities, no focal deficit Results & Data Results & Data Vital Signs (Past 12 Hours) Vital Signs Temp Pulse Pulse Resp BP BP Pulse Ox 08/06/25 13:00 85 16 114/61 94 08/06/25 11:52 85 16 95 08/06/25 11:52 87 16 98/61 L 95 08/06/25 11:50 86 L 08/06/25 11:07 92 H 08/06/25 09:20 36.4 C L 111 H 18 94/60 L 96 O2 Del Method O2 Flow Rate 08/06/25 13:00 Nasal Cannula 2 08/06/25 11:52 Nasal Cannula 2 08/06/25 11:52 Nasal Cannula 2 08/06/25 11:50 Nasal Cannula 0 08/06/25 11:07 08/06/25 09:20 Room Air Laboratory Results Lab Results 08/06/25 08/06/25 08/06/25 Range/Units 09:58 10:13 10:22 WBC 17.29 H (4.8-10.8) K/ul RBC 5.21 (4.20-5.40) M/uL Hgb 14.0 (12.0-16.0) g/dl POC Hgb 15.6 (12.0-16.0) g/dl Hct 44.9 (37.0-47.0) % POC Hct 46 (37-47) % MCV 86.2 (80.0-100.0) fL MCH 26.9 (25.0-34.0) pg MCHC 31.2 L (32.0-36.0) g/dL RDW Std Deviation 48.9 H (36.4-46.3) fL RDW Coeff of Tori 15.7 H (11.5-14.5) % Plt Count 294 (130-400) K/uL MPV 9.5 (9.4-12.4) fL Immature Gran % (Auto) 1.3 % Neut % (Auto) 85.8 % Lymph % (Auto) 7.1 % Josephine % (Auto) 5.4 % Eos % (Auto) 0.2 % Baso % (Auto) 0.2 % Neut # (Auto) 14.84 H (1.40-6.50) K/uL Lymph # (Auto) 1.22 (1.20-3.40) K/uL Josephine # (Auto) 0.94 H (0.11-0.59) K/uL Eos # (Auto) 0.03 (0.00-0.50) K/uL Baso # (Auto) 0.04 (0.00-0.20) K/uL Immature Gran # (Auto) 0.22 H (0.01-0.20) K/uL POC Sodium 137 (135-144) mmol/L Sodium 137 (136-145) mmol/L POC Potassium 3.8 (3.3-5.0) mmol/L Potassium 4.4 (3.5-5.1) mmol/L POC Chloride 96 L (101-112) mmol/L Chloride 100 (98-107) mmol/L Carbon Dioxide 28 (21-32) mmol/L POC Total CO2 30 (24-31) mmol/L Anion Gap 9 (3-11) POC Anion Gap 16.0 (16-25) mmol/L POC BUN 19 H (7-18) mg/dl BUN 16 (6-23) mg/dl Creatinine 1.35 H (0.6-1.2) mg/dl POC Creatinine 1.7 H (0.6-1.3) mg/dl Est Cr Clr Drug Dosing 59.2 ml/min eGFR 44.99 BUN/Creatinine Ratio 11.9 (10-20) Glucose 113 H (70-99(Fasting)) mg/dl POC Glucose (other) 120 H (70-99) mg/dl Calcium 8.8 (8.6-10.3) mg/dl POC Ioniz Calcium Tony 1.14 (1.12-1.32) mmol/l Total Bilirubin 1.9 H (0.2-1.0) mg/dl AST 17 (13-39) U/L ALT 20 (7-52) U/L Alkaline Phosphatase 77 (34-104) U/L Troponin I High Sens 5.7 (0-14) pg/ml Total Protein 6.7 (6.0-8.3) gm/dl Albumin 3.9 (3.4-5.0) gm/dl Globulin 2.8 (2.5-4.0) gm/dl Albumin/Globulin Ratio 1.4 (0.9-2) Lipase 15 (11-82) U/L Urine Color Urine Appearance (Clear) Urine pH (4.5-7.5) Ur Specific [place] (1.000-1.030) Urine Protein (Negative) Urine Glucose (UA) (Negative) Urine Ketones (Negative) Urine Blood (Negative) Urine Nitrite (Negative) Urine Bilirubin (Negative) Urine Urobilinogen (Negative) Ur Leukocyte Esterase (Negative) Urine WBC (Auto) (0-5) /hpf Urine RBC (Auto) (0-2) /hpf U Hyaline Cast (Auto) (0-2) /lpf U Epithel Cells (Auto) (0-2) /hpf Urine Bacteria (Auto) (None Seen) Urine Comment 08/06/25 Range/Units 13:21 WBC (4.8-10.8) K/ul RBC (4.20-5.40) M/uL Hgb (12.0-16.0) g/dl POC Hgb (12.0-16.0) g/dl Hct (37.0-47.0) % POC Hct (37-47) % MCV (80.0-100.0) fL MCH (25.0-34.0) pg MCHC (32.0-36.0) g/dL RDW Std Deviation (36.4-46.3) fL RDW Coeff of Tori (11.5-14.5) % Plt Count (130-400) K/uL MPV (9.4-12.4) fL Immature Gran % (Auto) % Neut % (Auto) % Lymph % (Auto) % Josephine % (Auto) % Eos % (Auto) % Baso % (Auto) % Neut # (Auto) (1.40-6.50) K/uL Lymph # (Auto) (1.20-3.40) K/uL Josephine # (Auto) (0.11-0.59) K/uL Eos # (Auto) (0.00-0.50) K/uL Baso # (Auto) (0.00-0.20) K/uL Immature Gran # (Auto) (0.01-0.20) K/uL POC Sodium (135-144) mmol/L Sodium (136-145) mmol/L POC Potassium (3.3-5.0) mmol/L Potassium (3.5-5.1) mmol/L POC Chloride (101-112) mmol/L Chloride (98-107) mmol/L Carbon Dioxide (21-32) mmol/L POC Total CO2 (24-31) mmol/L Anion Gap (3-11) POC Anion Gap (16-25) mmol/L POC BUN (7-18) mg/dl BUN (6-23) mg/dl Creatinine (0.6-1.2) mg/dl POC Creatinine (0.6-1.3) mg/dl Est Cr Clr Drug Dosing ml/min eGFR BUN/Creatinine Ratio (10-20) Glucose (70-99(Fasting)) mg/dl POC Glucose (other) (70-99) mg/dl Calcium (8.6-10.3) mg/dl POC Ioniz Calcium Tony (1.12-1.32) mmol/l Total Bilirubin (0.2-1.0) mg/dl AST (13-39) U/L ALT (7-52) U/L Alkaline Phosphatase (34-104) U/L Troponin I High Sens (0-14) pg/ml Total Protein (6.0-8.3) gm/dl Albumin (3.4-5.0) gm/dl Globulin (2.5-4.0) gm/dl Albumin/Globulin Ratio (0.9-2) Lipase (11-82) U/L Urine Color Yellow Urine Appearance Clear (Clear) Urine pH 7.5 (4.5-7.5) Ur Specific [place] > 1.045 H (1.000-1.030) Urine Protein 1+ H (Negative) Urine Glucose (UA) Negative (Negative) Urine Ketones Negative (Negative) Urine Blood 1+ H (Negative) Urine Nitrite Negative (Negative) Urine Bilirubin Negative (Negative) Urine Urobilinogen Negative (Negative) Ur Leukocyte Esterase Trace H (Negative) Urine WBC (Auto) 0-5 (0-5) /hpf Urine RBC (Auto) 6-10 H (0-2) /hpf U Hyaline Cast (Auto) 6-10 H (0-2) /lpf U Epithel Cells (Auto) 3-5 H (0-2) /hpf Urine Bacteria (Auto) None Seen (None Seen) Urine Comment Diagnostic Findings Abdomen/Pelvis CT 08/06/25 09:33 CT SCAN OF THE ABDOMEN AND PELVIS WITH IV CONTRAST CLINICAL HISTORY: Abdominal pain. COMPARISON STUDY: None. TECHNIQUE: Following the IV administration of 118 cc of Optiray 320, CT scan of the abdomen and pelvis is performed from the lung bases to the proximal femora. Images are reviewed in the axial, sagittal, and coronal planes. IV contrast was administered without complication. A dose lowering technique was utilized adhering to the principles of ALARA. FINDINGS: Please note that the chest CT will be reported separately. A moderate size right pleural effusion is better depicted on that exam. No pneumatosis, free air or portal venous gas is present. There are no hepatic lesions. There is no biliary or pancreatic ductal dilatation. The gallbladder is mildly distended. The spleen, adrenal glands and pancreas are unremarkable. There is a nonobstructing 9 mm calculus within the right renal pelvis. Moderate right and mild left renal cortical thinning is present. There are no ureteral calculi. Bladder wall thickening is accentuated by underdistention. Of note, there is extensive omental nodularity consistent with omental caking. There is a mixed solid and cystic right adnexal lesion. This measures 8.9 x 6.3 cm. The solid component measures 5 x 4.2 cm. Multiloculated pockets of fluid within the pelvis are noted with associated peritoneal thickening. Peritoneal thickening is irregular. There is a small amount of abdominal ascites. There are prominent lymph nodes adjacent to the distal descending thoracic aorta. Note is made of a 1.9 x 1.6 cm lymph node versus implant adjacent to the gastric cardia. There is a 2 x 1.5 cm implant anterior to the ascending colon. Mildly enlarged aortocaval lymph node on image 173 measures 1 x 0.7 cm. There is no evidence for a bowel obstruction. There is colonic diverticulosis without evidence for acute diverticulitis. There is no evidence for acute appendicitis. IMPRESSION: 1. Extensive omental nodularity consistent with omental caking. Additional peritoneal implants. The findings are consistent with peritoneal carcinomatosis. Mixed cystic and solid right adnexal lesion favors a primary right ovarian neoplasm. 2. Associated multiloculated pockets of fluid within the pelvis with nodular peritoneal thickening also likely neoplastic in etiology. A superimposed infection is within the differential but considered less likely. 3. Moderate right pleural effusion. Although nonspecific, this may be malignant. 4. Mildly enlarged lymph node adjacent to the gastric fundus. Prominent para- aortic lymph nodes. 5. Nonobstructing 9 mm right renal pelvis calculus. No hydronephrosis. ACT 112: Negative or not required by law. Electronically signed by: Heber James M.D. 08/06/2025 12:18 PM Chest X-Ray 08/06/25 09:33 XR chest 1V portable CLINICAL HISTORY: abd COMPARISON STUDY: 01/30/2023 FINDINGS: There is mild cardiomegaly with mild pulmonary vascular congestion. There is interval hazy opacity at the right base. No other consolidation or pleural effusion seen. No pneumothorax. IMPRESSION: 1. Mild CHF. 2. Right lung base opacity could represent atelectasis, pneumonia, or small right pleural effusion. ACT 112: Negative or not required by law. Electronically signed by: Harjinder Cook M.D. 08/06/2025 10:47 AM Chest CTA 08/06/25 10:53 CT ANGIOGRAM OF THE CHEST CLINICAL HISTORY: Shortness of breath. Evaluate for pulmonary embolus. COMPARISON STUDY: Chest radiograph performed earlier today. Chest CT October 18, 2022. TECHNIQUE: Following the IV administration of 118 cc of Optiray 320, CT angiogram of the chest was performed from the upper abdomen to the thoracic inlet utilizing the pulmonary embolus protocol. Images are reviewed in the axial, sagittal, and coronal planes. 3-D MIPS images are created and assessed. IV contrast was administered without complication. A dose lowering technique was utilized adhering to the principles of ALARA. CT DOSE: 3125.67 mGy.cm FINDINGS: No pulmonary emboli are identified. There is no thoracic aortic dissection. The heart is mildly enlarged. There is no pericardial effusion. There is no pneumothorax. A moderate size right pleural effusion is present. Subpleural right lower lobe opacity with volume loss favors atelectasis. There is moderate emphysema. The abdomen and pelvis CT will be reported separately. Omental/peritoneal nodularity is better depicted on that examination. IMPRESSION: 1. No pulmonary emboli identified. 2. Moderate size right pleural effusion. Although nonspecific, a malignant effusion cannot be excluded given peritoneal/omental nodularity which is better depicted on the CT of the abdomen and pelvis. 3. Emphysema. ACT 112: Negative or not required by law. Electronically signed by: Heber James M.D. 08/06/2025 12:04 PM Medications Administered Discontinued Medications Sodium Chloride (Nss) 500 mls @ 999 mls/hr IV .Q31M STA Stop: 08/06/25 10:03 Last Admin: 08/06/25 10:13 Dose: 999 mls/hr Documented By: DAVEY Sodium Chloride (Nss) 500 mls @ 999 mls/hr IV .Q31M ONE Stop: 08/06/25 11:18 Last Admin: 08/06/25 11:32 Dose: 999 mls/hr Documented By: JOSE Piperacillin Sod/Tazobactam Sod (Zosyn) 4.5 gm in 100 mls @ 200 mls/hr IV NOW ONE; Protocol Stop: 08/06/25 11:17 Last Infusion: 08/06/25 13:23 Dose: Infused Documented By: Admin: 08/06/25 11:30 Dose: 200 mls/hr Documented By: JOSE Ioversol (Optiray 320 125ml) 118 ml IV ONCE ONE Stop: 08/06/25 11:24 Last Admin: 08/06/25 11:23 Dose: 118 ml Documented By: SHERRY Morphine Sulfate (Morphine Sulfate 4 Mg/Ml 1 Ml Carp\Vial) 4 mg IV Q15M PRN PRN Reason: Pain Stop: 08/20/25 09:32 Last Admin: 08/06/25 10:22 Dose: 4 mg Documented By: RUMA Ondansetron HCl (Ondansetron Inj 2 Mg/Ml 2 Ml Vial) 4 mg IV NOW STA Stop: 08/06/25 09:34 Last Admin: 08/06/25 10:14 Dose: 4 mg Documented By: DAVEY Code Status & VTE Plan VTE Prophylaxis Plan VTE Prophylaxis will be ordered: Yes Supervising Physician Co-Signing Physician Notes Attending addendum: The patient was seen and examined in the emergency room She is a 60-year-old female significant past medical history of asthma/COPD, prior tobacco abuse, depression, obstructive sleep apnea, heart failure with reduced EF, apparently has been complaining of 2 weeks history of intermittent abdominal pain with some bloating. The pain was worse today and she came to the emergency room for further evaluation Denies any fever and chills, minimal nausea but no vomiting and denies any problem with eating and the bowel habit On examination Lying in bed without any significant distress Afebrile and hemodynamically stable she is requiring 2 L to maintain saturations Chestdecreased breath sound bibasilarly more on the right than the left HeartS1, S2 regular Abdomendistended, soft, mildly tender, clinically minimal ascites, bowel sound present Extremitiestrace edema bilaterally CNSalert, awake and oriented x 3. No focal sensory or motor deficit appreciated Her admission labs and imaging studies reviewednotable findings white count of 17,000 and minimally creatinine at 1.[address] of the abdomen did show abdominal carcinomatosis with mixed solid and cystic right adnexal lesions measuring 8.9 x 6.3 cm Likely has abdominal carcinomatosis secondary to ovarian origin with ascites and right pleural effusion could be malignant She will have ultrasound of the abdomen and possible therapeutic paracentesis to have a possible diagnosis Will send tumor markers as mentioned above and also start antibiotic for possible infection Will also give small amount of IV fluid for ELIZABETH Her other significant medical conditions as mentioned in H&P remain stable and will continue her outpatient medications She will need to have oncology evaluation likely as an outpatient Agree with assessment and plan as outlined above by Senia Hood PA-C and take the full responsibility of care in the hospital Dr Coreen Henry
[2025-08-06] MEDS: MoRPHine SULFATE 4 MG/ML 1 ML CARP\\VIAL IV STA (16:16)
[2025-08-06] MEDS ORDERED: ALBUT/IPRATROP 3MG/0.5MG NEB 3 ML VIAL INH PRN (16:38)
[2025-08-06] MEDS: PIPERACILLIN/TAZOBACTAM 4.5 GM/100 ML BAG IV SCH (19:33)
[2025-08-06] MEDS: SODIUM CHLORIDE 0.9% 1,000 ML IV SCH (19:33)
[2025-08-06] MEDS: METOPROLOL SUCC 25MG EXT REL TAB PO SCH (20:20)
[2025-08-06] MEDS: MONTELUKAST SODIUM 10 MG TABLET PO SCH (20:21)
--- NOTE | 2025-08-06 21:05 | Ultrasound Report ---
ABDOMINAL ULTRASOUND LIMITED INDICATION: Abdominal pain. Ascites check TECHNIQUE: Limited ultrasound examination of the 4 quadrants of the abdomen. COMPARISON: CT abdomen and pelvis performed earlier in the same day is not viewable in our system. FINDINGS: No appreciable ascites is identified in the abdomen. Likely cholelithiasis. IMPRESSION: No appreciable ascites is identified in the abdomen. Please correlate with the CT abdomen and pelvis performed earlier in the same day. Electronically signed by Torrey Oneal 08-06-2025 9:03 PM
--- NOTE | 2025-08-06 21:15 | Ultrasound Report ---
ULTRASOUND PELVIS INDICATION: Pelvic pain TECHNIQUE: Grayscale and color Doppler ultrasound of the pelvis was performed transabdominally and transvaginally. COMPARISON: CT abdomen and pelvis performed earlier the same day is not viewable in our system. FINDINGS: Uterus: Uterus measures 7.8 x 4.3 x 4.5 cm. There is simple appearing fluid in the endometrium. Uterine myometrium appears homogeneous Right ovary: There is a complex solid cystic process in the right adnexa that measures 12.4 x 5.5 x 4.6 cm. This process appears to encase the right ovary. Arterial and venous vascularity of the right ovary are seen. Left ovary: Measures 3.1 x 2.8 x 2.6 cm. Normal vascularity is noted. A few small follicles are noted. Free fluid: Small free fluid is noted. Other: None. IMPRESSION: Complex solid cystic process in the right adnexa measuring up to 12.4 cm that is poorly characterized but appears to encase the right ovary. Overall this process is poorly characterized on ultrasound. The CT abdomen and pelvis examination performed earlier in the same day is not viewable in our system. If indicated, MRI of the pelvis with contrast may offer a more definitive assessment. No evidence of ovarian torsion. Electronically signed by Torrey Oneal 08-06-2025 9:15 PM
[2025-08-07] MEDS: ALUMINUM/MAGNESIUM/SIMETH (MAALOX MAX) 30 ML UDC PO STA (01:10)
[2025-08-07] MEDS: ACETAMINOPHEN 325 MG TAB PO PRN (03:26)
[2025-08-07] MEDS: ATORVASTATIN 40 MG TAB PO SCH (08:03)
[2025-08-07] MEDS: ASPIRIN 81 MG ECTAB PO SCH (08:03)
[2025-08-07] MEDS: LORATADINE 10 MG TAB PO SCH (08:03)
[2025-08-07] MEDS: AZELASTINE HCL 0.1% NASAL 200 SPRAYS/27,400 MCG BTL SCH (08:03)
[2025-08-07] MEDS: FLUTICASONE FUROATE 100MCG 14 PUFFS/INHALER INH SCH (08:04)
[2025-08-07] MEDS: UMECLIDINIUM/VILANTEROL 62.5/25MCG 7 PUFFS/INHALER INH SCH (08:04)
[2025-08-07] MEDS: FLUTICASONE PROPIONATE NA SPR 16 GM BTL NAE SCH (08:04)
[2025-08-07] MEDS: ENOXAPARIN INJ 40 MG/0.4 ML SYR SQ SCH (08:05)
[2025-08-07 08:46] LABS: Hematocrit (blood only) 38.1 % (37.0-47.0); Hemoglobin 11.9 g/dl (12.0-16.0); Immature Granulocytes # (auto) 0.07 K/uL (0.01-0.20); Immature Granulocytes % (auto) 0.8 %; Mean Corpuscular Hemoglobin 26.9 pg (25.0-34.0); Mean Corpuscular Volume 86.2 fL (80.0-100.0); Platelet Count 213 K/uL (130-400); RDW Standard Deviation 50.2 fL (36.4-46.3); Red Blood Count 4.42 M/uL (4.20-5.40); White Blood Count 8.37 K/ul (4.8-10.8)
[2025-08-07] MEDS ORDERED: NON-FORMULARY MEDICATION (Fluticasone-Umeclidin-Vilanter [Trelegy Ellipta] 100-62.5-25 mcg INH SCH (09:00)
[2025-08-07 10:06] LABS: Anion Gap 6.0 (3-11); Blood Urea Nitrogen 13.0 mg/dl (6-23); Calcium 8.3 mg/dl (8.6-10.3); Carbon Dioxide 27.0 mmol/L (21-32); Chloride 103.0 mmol/L (98-107); Creatinine Clr Calc Pharmacy 81.5 ml/min; Glucose 120.0 mg/dl (70-99(Fasting)); Potassium 4.0 mmol/L (3.5-5.1); Sodium 136.0 mmol/L (136-145)
[2025-08-07] MEDS: ONDANSETRON INJ 2 MG/ML 2 ML VIAL IV PRN (10:25)
--- NOTE | 2025-08-07 11:09 | Oncology Consultation ---
Date of Consultation August 07, 2025 Assessment & Plan (1) Mass of right ovary: (2) Peritoneal carcinomatosis: (3) Pleural effusion on right: Plan -CT imaging concerning for metastatic ovarian cancer. Recommend diagnostic thoracentesis. If cytology from pleural fluid is negative, recommend proceeding with omental nodule biopsy. Patient agreed with this plan. -If cytology confirms ovarian cancer, Would recommend 3 cycles of neoadjuvant systemic therapy with carboplatin, paclitaxel and bevacizumab followed by debulking surgery and adjuvant chemotherapy. -she will need to be established with [facility] oncology. Since most of her providers are in the [facility] system, patient would prefer to follow-up with [facility] oncology at [facility]-recommend referral to [facility] for this. She would also need to follow- up with medical oncology to initiate chemotherapy -happy to see her at [facility] oncology clinic but might be better to follow-up with [facility] medical oncology in [place] since she prefers to have all her records within the same system. History of Present Illness Reason for Consultation: newly presenting ovarian mass, c/w possible malig. Attending Physician: Amanda Cornejo MD History of Present Illness 60-year-old female with medical history significant for COPD who was admitted to [facility] on 08/06/2025 after presenting with abdominal pain. CT abdomen and pelvis on 08/06/2025 revealed extensive omental nodularity consistent with omental caking, additional peritoneal implants consistent with peritoneal carcinomatosis, mixed cystic and solid right adnexal lesion favoring right ovarian neoplasm, associated multiloculated pockets of fluid within the pelvis and nodular peritoneal thickening also likely neoplastic, moderate right pleural effusion, mildly enlarged lymph node adjacent to the gastric fundus with prominent para-aortic lymph nodes and nonobstructing 9 mm right renal pelvic calculus. CT chest on 08/06/2025 revealed no pulmonary emboli, moderate size right pleural effusion. CA125 was ordered and is pending. Allergies Allergy/AdvReac Type Severity Reaction Status Date / Time No Known Allergies Allergy Unverified 01/26/23 20:10 Home Medications Medication Instructions Recorded Confirmed Type fluticasone fur. 100 mcg-umeclid 1 ea inhalation QAM 10/18/22 08/06/25 History 62.5 mcg-vilant 25 mcg inhalat.powder (Trelegy Ellipta) aspirin 81 mg tablet,delayed 81 mg PO QAM #30 tabs 01/31/23 08/06/25 Rx release atorvastatin 40 mg tablet 40 mg PO QAM #30 tabs 01/31/23 08/06/25 Rx metoprolol succinate 25 mg 25 mg PO BID #60 tabs 01/31/23 08/06/25 Rx tablet,extended release 24 hr albuterol sulfate 90 mcg/actuation 2 puff inhalation Q6H PRN 08/06/25 08/06/25 History aerosol inhaler (Ventolin HFA) cough/sob/wheezing azelastine 137 mcg (0.1 %) nasal 1 spray NA DAILY 08/06/25 08/06/25 History spray fluticasone propionate 50 2 spray KEENA DAILY 08/06/25 08/06/25 History mcg/actuation nasal spray,suspension ipratropium 0.5 mg-albuterol 3 mg 3 ml inhalation Q4H PRN 08/06/25 08/06/25 History (2.5 mg base)/3 mL nebulization cough,shortness of breath soln loratadine 10 mg tablet 10 mg PO DAILY 08/06/25 08/06/25 History losartan 25 mg tablet 25 mg PO DAILY 08/06/25 08/06/25 History montelukast 10 mg tablet 10 mg PO HS 08/06/25 08/06/25 History pantoprazole 40 mg tablet,delayed 40 mg PO DAILY 08/06/25 08/06/25 History release Patient History Medical History (Updated 08/06/25 @ 16:23 by Stacey Hood PA-C) Allergic rhinitis NYHA class 3 systolic congestive heart failure with reduced left ventricular function Atrial tachycardia NSVT (nonsustained ventricular tachycardia) Abnormal cardiovascular stress test Depression JAROCHO (obstructive sleep apnea) Reflex sympathetic dystrophy of other specified site Asthma with COPD COPD (chronic obstructive pulmonary disease) Surgical History (Updated 08/06/25 @ 15:37 by Stacey Hood PA-C) 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 S/P tubal ligation S/P cataract surgery Family History (Updated 08/06/25 @ 15:34 by Stacey Hood PA-C) Mother Dementia Sister Dementia Aunt Dementia Denies family history of Ovarian cancer Breast cancer Social History Smoking Status: Former smoker Smoking End Date: 11 years ago; Second Hand Exposure: No; Do You Dip or Chew Tobacco: No; Hx Alcohol Use: Yes Hx Substance Use: No Preferred Language: Chadian Communication 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
[2025-08-07] MEDS: ALBUTEROL HFA 8 GM INHALER INH PRN (11:46)
[2025-08-07] MEDS ORDERED: CALCIUM CARBONATE 500 MG CHEWABLE TAB PO PRN (16:47)
--- NOTE | 2025-08-07 16:57 | Hospitalist Progress Note ---
Date of Service August 07, 2025 Assessment & Plan (1) Peritoneal carcinomatosis: (2) Pleural effusion on right: (3) Mass of right ovary: (4) ELIZABETH (acute kidney injury): (5) Asthma with COPD: (6) JAROCHO (obstructive sleep apnea): Plan Ms. Isaac 60 y/o female with asthma/COPD, RSD, prior tobacco abuse, hx depression, hx lung nodules, JAROCHO, HFrEF, and other history as outlined below admitted for evaluation of intermittent abdominal pain. Imaging revealed large ovarian mass with peritoneal carcinomatosis, multiloculated pockets of fluid, and pleural effusion. Concern for malignant process. Plan for thoracentesis in am as other biopsy options would require 5 days of ASA being held. #Upper abdominal pain likely 2/2 malignant process #Peritoneal carcinomatosis on imaging #Right ovarian mass #Right pleural effusion Pelvic ultrasound confirmed complex cystic ovarian mass Pending CEA, CA 125, and CA 19-9 Plan for Thora with IR Holding ASA Gynecology: patient needs to establish OP with Gyne Onc Heme/Onc consulted: imaging suggest aggressive process, pending thora results Pain controlled for now on current regimen Discontinue abx as no source of infection Agreed to OP palliative referral #ELIZABETH - suspect related to decreased oral intake over the last few weeks - Gentle IVF, especially with IV contrast given today Resolved, continue PO #Asthma with COPD - recent exacerbation noted, finished course of prednisone two days ago - Continue outpatient regimen #JAROCHO - difficulty tolerating CPAP due to nasal dryness and pain so not consistently using #GERD - Chronic, continue PPI therapy #Dyslipidemia - Chronic, continue statin therapy Pt seen and reviewed with collaborating physician, Dr. Henry. Plan of care discussed and as outlined above. Code status: full code DVT prophylaxis: SCDs, Lovenox held 2/2 procedure in am Admission and Anticipated Discharge Date Admission Date: August 06, 2025 Subjective Reports pain better controlled today--still episodes of discomfort but feels the oxycodone is sufficient for now Reports feeling nervous for procedure, but agreed to plan and verbalizes understanding no chest pain, palpitations, sob or other acute concerns at this time BM this am Physical Exam Constitutional: WD/WN, vitals as above Respiratory: normal respiratory effort, lungs clear to auscultation Cardiovascular: RRR, no murmur, no edema Gastrointestinal (Abdomen): guarding noted when planned for abdominal palpation, tenderness predominately in upper quadrants and RLQ Results & Data Results & Data Vital Signs (Past 12 Hours) Vital Signs Temp Pulse Pulse Resp BP Pulse Ox O2 Del Method 08/07/25 16:28 37.0 C 94 H 20 131/86 92 Room Air 08/07/25 13:36 103 H 08/07/25 12:40 36.6 C 82 16 115/75 95 Room Air 08/07/25 11:46 77 18 94 Room Air 08/07/25 08:06 36.6 C 82 16 103/64 96 Room Air 08/07/25 05:29 81 Laboratory Results Short CBC 08/07/25 Range/Units 07:58 WBC 8.37 (4.8-10.8) K/ul Hgb 11.9 L (12.0-16.0) g/dl Hct 38.1 (37.0-47.0) % Plt Count 213 (130-400) K/uL BMP 08/07/25 08/07/25 07:58 09:22 Sodium Cancelled 136 Potassium Cancelled 4.0 Chloride Cancelled 103 Carbon Dioxide Cancelled 27 BUN Cancelled 13 Creatinine Cancelled 0.98 D Glucose Cancelled 120 H Calcium Cancelled 8.3 L Medications Administered Home Medications Medication Instructions Recorded Confirmed Last Taken fluticasone fur. 100 mcg-umeclid 1 ea inhalation QAM 10/18/22 08/06/25 Unknown 62.5 mcg-vilant 25 mcg inhalat.powder (Trelegy Ellipta) aspirin 81 mg tablet,delayed 81 mg PO QAM #30 tabs 01/31/23 08/06/25 Unknown release atorvastatin 40 mg tablet 40 mg PO QAM #30 tabs 01/31/23 08/06/25 Unknown metoprolol succinate 25 mg 25 mg PO BID #60 tabs 01/31/23 08/06/25 Unknown tablet,extended release 24 hr albuterol sulfate 90 mcg/actuation 2 puff inhalation Q6H PRN 08/06/25 08/06/25 Unknown aerosol inhaler (Ventolin HFA) cough/sob/wheezing azelastine 137 mcg (0.1 %) nasal 1 spray NA DAILY 08/06/25 08/06/25 Unknown spray fluticasone propionate 50 2 spray KEENA DAILY 08/06/25 08/06/25 Unknown mcg/actuation nasal spray,suspension ipratropium 0.5 mg-albuterol 3 mg 3 ml inhalation Q4H PRN 08/06/25 08/06/25 Unknown (2.5 mg base)/3 mL nebulization cough,shortness of breath soln loratadine 10 mg tablet 10 mg PO DAILY 08/06/25 08/06/25 Unknown losartan 25 mg tablet 25 mg PO DAILY 08/06/25 08/06/25 Unknown montelukast 10 mg tablet 10 mg PO HS 08/06/25 08/06/25 Unknown pantoprazole 40 mg tablet,delayed 40 mg PO DAILY 08/06/25 08/06/25 Unknown release Active Medications Generic Name Dose Route Start Last Admin Trade Name Freq PRN Reason Stop Dose Admin Acetaminophen 650 mg 08/07/25 03:15 08/07/25 03:26 Acetaminophen 325 Mg Tab PO 09/06/25 03:14 650 mg Q6H PRN Administration Pain or Fever Albuterol 2 puffs 08/06/25 16:38 08/07/25 11:46 Albuterol Hfa 8 Gm Inhaler INH 09/05/25 16:37 2 puffs Q6H PRN Administration cough/sob/wheezing Aspirin 81 mg 08/07/25 09:00 08/07/25 08:03 Aspirin 81 Mg Ectab PO 09/06/25 08:59 81 mg QAM ULISES Administration Atorvastatin Calcium 40 mg 08/07/25 09:00 08/07/25 08:03 Atorvastatin 40 Mg Tab PO 09/06/25 08:59 40 mg QAM ULISES Administration Azelastine HCl 1 sprays 08/07/25 09:00 08/07/25 08:03 Azelastine Hcl 0.1% Nasal 200 Sprays/27,400 Mcg Btl NA 09/06/25 08:59 1 sprays DAILY ULISES Administration Enoxaparin Sodium 40 mg 08/07/25 09:00 08/07/25 08:05 Enoxaparin Inj 40 Mg/0.4 Ml Syr SQ 09/06/25 08:59 40 mg QAM ULISES Administration Fluticasone Furoate 1 puffs 08/07/25 09:00 08/07/25 08:04 Fluticasone Furoate 100mcg 14 Puffs/Inhaler INH 09/06/25 08:59 1 puffs DAILY ULISES Administration Fluticasone Propionate 2 sprays 08/07/25 09:00 08/07/25 08:04 Fluticasone Propionate Na Spr 16 Gm Btl KEENA 09/06/25 08:59 2 sprays DAILY ULISES Administration Piperacillin Sod/Tazobactam Sod 4.5 gm in 100 mls @ 25 mls/hr 08/06/25 16:30 08/07/25 16:15 Zosyn IV 08/08/25 16:29 Infused Q8H ULISES Infusion Protocol Loratadine 10 mg 08/07/25 09:00 08/07/25 08:03 Loratadine 10 Mg Tab PO 09/06/25 08:59 10 mg DAILY ULISES Administration Metoprolol Succinate 25 mg 08/06/25 21:00 08/07/25 08:03 Metoprolol Succ 25mg Ext Rel Tab PO 09/05/25 20:59 25 mg BID ULISES Administration Montelukast Sodium 10 mg 08/06/25 21:00 08/06/25 20:21 Montelukast Sodium 10 Mg Tablet PO 09/05/25 20:59 10 mg HS ULISES Administration Ondansetron HCl 4 mg 08/06/25 16:38 08/07/25 10:25 Ondansetron Inj 2 Mg/Ml 2 Ml Vial IV 09/05/25 16:37 4 mg Q6H PRN Administration Nausea Oxycodone HCl 5 mg 08/06/25 14:50 08/07/25 14:54 Oxycodone Hcl Ir 5 Mg Tab (Immediate Release) PO 08/20/25 14:49 5 mg Q6H PRN Administration Moderate Pain (Scale 4, 5, 6) Pantoprazole Sodium 40 mg 08/07/25 09:00 08/07/25 08:03 Pantoprazole 40 Mg Tab PO 09/06/25 08:59 40 mg DAILY ULISES Administration Umeclidinium/Vilanterol 1 puffs 08/07/25 09:00 08/07/25 08:04 Umeclidinium/Vilanterol 62.5/25mcg 7 Puffs/Inhaler INH 09/06/25 08:59 1 puffs DAILY ULISES Administration
[2025-08-07] MEDS: CALCIUM CARBONATE 500 MG CHEWABLE TAB PO STA (17:56)
[2025-08-08 07:02] LABS: Hematocrit (blood only) 37.0 % (37.0-47.0); Hemoglobin 11.7 g/dl (12.0-16.0); Mean Corpuscular Hemoglobin 26.8 pg (25.0-34.0); Mean Corpuscular Volume 84.7 fL (80.0-100.0); Platelet Count 201 K/uL (130-400); RDW Standard Deviation 47.8 fL (36.4-46.3); Red Blood Count 4.37 M/uL (4.20-5.40); White Blood Count 6.84 K/ul (4.8-10.8)
[2025-08-08 07:22] LABS: Anion Gap 5.0 (3-11); Blood Urea Nitrogen 10.0 mg/dl (6-23); Calcium 8.3 mg/dl (8.6-10.3); Carbon Dioxide 29.0 mmol/L (21-32); Chloride 105.0 mmol/L (98-107); Creatinine Clr Calc Pharmacy 90.4 ml/min; Glucose 102.0 mg/dl (70-99(Fasting)); Magnesium 1.9 mg/dl (1.7-2.4); Potassium 4.2 mmol/L (3.5-5.1); Sodium 139.0 mmol/L (136-145)
[2025-08-08 07:29] LABS: INR 1.0 (0.9-1.1); Prothrombin Time 11.2 Seconds (9.0-12.0)
[2025-08-08 08:38] VITALS: RESP 20
--- NOTE | 2025-08-08 10:39 | XRay Report ---
XR chest 1V not portable CLINICAL HISTORY: s/p thora COMPARISON STUDY: 08/06/2025 FINDINGS: Heart size and pulmonary vasculature are normal. There is mild stranding of the right lung base, improved. No other consolidation or pleural effusion seen. No pneumothorax. IMPRESSION: No pneumothorax seen. ACT 112: Negative or not required by law. Electronically signed by: Harjinder Cook M.D. 08/08/2025 10:36 AM
[2025-08-08 11:31] VITALS: BP 115/76; PULSE 53; TEMP 97.5; O2SAT 84
--- NOTE | 2025-08-08 11:44 | Discharge Summary ---
Discharge Summary Date of Service August 08, 2025 Principal Dx & Hospital Course #1 = Principal Diagnosis (1) Peritoneal carcinomatosis: (2) Pleural effusion on right: (3) Mass of right ovary: (4) ELIZABETH (acute kidney injury): (5) Asthma with COPD: (6) JAROCHO (obstructive sleep apnea): Plan Ms. Isaac 60 y/o female with asthma/COPD, RSD, prior tobacco abuse, hx depression, hx lung nodules, JAROCHO, HFrEF, and other history as outlined below admitted for evaluation of intermittent abdominal pain. Imaging revealed large ovarian mass with peritoneal carcinomatosis, multiloculated pockets of fluid, and pleural effusion. Initial plan was for ovarian biopsy but could not be done due to her being on ASA. She is s/p R thoracentesis today by IR. No fever or leukocytosis to suggest empyema or parapneumonic effusion. She is feeling well and wishes to go home. her pain is controlled with oxycodone. D/w tanika Powell for discharge home. she is being set up with [facility] oncology. She was instructed on the importance of following up with them. She will take miralax daily due to risk of OIC. Vitals and labs are stable on discharge. #Upper abdominal pain likely 2/2 malignant process #Peritoneal carcinomatosis on imaging #Right ovarian mass #Right pleural effusion Pelvic ultrasound confirmed complex cystic ovarian mass Pending CEA, CA 125, and CA 19-9 Plan for Thora with IR Holding ASA Gynecology: patient needs to establish OP with Gyne Onc Heme/Onc consulted: imaging suggest aggressive process, pending thora results Pain controlled for now on current regimen Discontinue abx as no source of infection Agreed to OP palliative referral #ELIZABETH - suspect related to decreased oral intake over the last few weeks - Gentle IVF, especially with IV contrast given today Resolved, continue PO #Asthma with COPD - recent exacerbation noted, finished course of prednisone two days ago - Continue outpatient regimen #JAROCHO - difficulty tolerating CPAP due to nasal dryness and pain so not consistently using #GERD - Chronic, continue PPI therapy #Dyslipidemia - Chronic, continue statin therapy Notes For Next Care Provider Follow up on pleural fluid analysis, cytology Medication Changes From Visit oxycodone added Admission HPI Per Admitting Provider This is a 60 y/o female with asthma/COPD, RSD, prior tobacco abuse, hx depression, hx lung nodules, JAROCHO, HFrEF, and other history as outlined below who presented to the ED today with two weeks of intermittent abdominal pain, severe episode today. Pt reports she first noticed pain in her left upper abdomen about two weeks ago, describes pain as sharp and coming in waves. Since then, she has continued with episodes of sharp upper abdominal pain bilaterally. Pain seemed to be worse after eating but no association with bowel pattern. She has a hx of IBS with alternating diarrhea and constipation so bowel pattern is irregular at baseline. She has noted some occasional mild nausea but no vomiting. She has also noted progressive bloating over the last two weeks, but attributed this to recent courses of prednisone for her breathing. Today, she felt okay when she got up for work around 3 am but shortly after she got to work she developed severe upper abdominal pain and right-sided chest pain so she came to the ED for evaluation. She went through menopause in her 40s with last menstrual cycle at age 49. Denies post-menopausal bleeding. She follows with PCP for routine pelvic exams and pap smears, denies hx of abnormal pap that she can recall. Was due for an exam this fall. She has a remote hx of ovarian cyst that ruptured when she was in her 20s. She denies any family history of NEUROPSYCHIATRIC AIDE malignancy. Over the last 3-4 weeks, she has also noticed increased respiratory symptoms, which she attributed to her COPD. She was prescribed antibiotics and prednisone by PCP with only partial improvement in symptoms so prednisone course extended and prescribed a second antibiotic. Respiratory symptoms have mostly improved but still with some mild dyspnea on exertion. Taking Trelegy, uses nebs and rescue inhaler 2-3x/day. Discharge Exam Vitals and labs reviewed General: Well appearing, NAD HEENT: EOMI, PERRLA Neck: Supple Cardiac: RRR no rubs gallops or murmurs Lungs: CTA no rhonchi wheezing or rales Abd: S NT ND BS positive : Deffered MSK: Full ROM. No obvious deformities Ext: No Edema cyanosis Skin: Warm, Dry Neuro: AOx3 No focal deficits. Psych: Normal Mood Updated Medication List Medication Instructions Recorded Confirmed Type fluticasone fur. 100 mcg-umeclid 1 ea inhalation QAM 10/18/22 08/06/25 History 62.5 mcg-vilant 25 mcg inhalat.powder (Trelegy Ellipta) aspirin 81 mg tablet,delayed 81 mg PO QAM #30 tabs 01/31/23 08/06/25 Rx release atorvastatin 40 mg tablet 40 mg PO QAM #30 tabs 01/31/23 08/06/25 Rx metoprolol succinate 25 mg 25 mg PO BID #60 tabs 01/31/23 08/06/25 Rx tablet,extended release 24 hr albuterol sulfate 90 mcg/actuation 2 puff inhalation Q6H PRN 08/06/25 08/06/25 History aerosol inhaler (Ventolin HFA) cough/sob/wheezing azelastine 137 mcg (0.1 %) nasal 1 spray NA DAILY 08/06/25 08/06/25 History spray fluticasone propionate 50 2 spray KEENA DAILY 08/06/25 08/06/25 History mcg/actuation nasal spray,suspension ipratropium 0.5 mg-albuterol 3 mg 3 ml inhalation Q4H PRN 08/06/25 08/06/25 History (2.5 mg base)/3 mL nebulization cough,shortness of breath soln loratadine 10 mg tablet 10 mg PO DAILY 08/06/25 08/06/25 History losartan 25 mg tablet 25 mg PO DAILY 08/06/25 08/06/25 History montelukast 10 mg tablet 10 mg PO HS 08/06/25 08/06/25 History pantoprazole 40 mg tablet,delayed 40 mg PO DAILY 08/06/25 08/06/25 History release oxycodone 5 mg tablet 5 mg PO Q6H PRN severe pain (scale 08/08/25 Rx score 7-10) 30 days #60 tabs Hospital Stay Data Consultations 08/06/25 13:24 ED Decision to Admit Stat 08/07/25 07:37 Consult Oncology Routine Diagnostic Imagining Performed 08/06/25 09:33 CT abd pelvis IV con only Stat 08/06/25 10:53 CT angio chest PE protocol Stat 08/06/25 14:52 US abdomen ltd ascites Routine US pelvic limited Routine 08/06/25 15:11 US transvaginal Routine 08/08/25 07:00 IR thoracentesis wo tube US Routine Pending Results Patient Have Any Pending Studies at Discharge: Yes Discharge Instructions Given to Patient (Per Discharging Provider) Please follow up with [facility]. They will be in contact regarding appointment. follow up with your PCP in 1-2 weeks. Let them know if your pain is not controlled. If you develop shortness of breath, return to ED. Please take miralax every morning and if no bowel movement for a day, take it twice per day. Total Time Total Time Spent Total Time Spent (In Minutes): 42
--- NOTE | 2025-08-08 12:26 | Ultrasound Report ---
ULTRASOUND-GUIDED RIGHT THORACENTESIS CLINICAL HISTORY: right pleural effusion PROCEDURE: Procedure and risks were explained. Informed consent was obtained. A final timeout was com pleted. The right posterior thorax was prepped and draped in sterile fashion. 1% lidocaine was utiliz ed for skin anesthesia. Utilizing ultrasound guidance, a 5 Turkish safety centesis catheter was advanced into the right pleura l effusion. Ultrasound images were obtained. A total of 900 mL of jennifer-colored pleural fluid was rem shonna and sent to the lab. The catheter was removed and Band-Aid applied. The patient tolerated the pr ocedure well. A chest x-ray will be obtained post procedure. Vital signs will be monitored postproced ure. IMPRESSION: Ultrasound-guided right thoracentesis as above. Performed, dictated, and signed by Cj Tomlinson PA-C; to be co-signed by Dr. Harjinder Cook. Electronically signed by: Harjinder Cook M.D. 08/08/2025 2:54 PM
--- NOTE | 2025-08-10 15:47 | Electrocardiogram Report ---
Test Reason : Blood Pressure : */* mmHG Vent. Rate : 99 BPM Atrial Rate : 99 BPM P-R Int : 138 ms QRS Dur : 102 ms QT Int : 358 ms P-R-T Axes : 64 -32 31 degrees QTcB Int : 459 ms Sinus rhythm with frequent Premature ventricular complexes Left axis deviation Nonspecific ST abnormality Abnormal ECG When compared with ECG of 28-Jan-2023 05:46, Premature ventricular complexes are now Present Questionable change in QRS duration Confirmed by Leon Damico ([id number]) on 08/10/2025 3:47:13 PM Referred By: REFERRED SELF Confirmed By: Leon Damico
--- NOTE | 2025-08-13 08:57 | Coding Query ---
metastatic ovarian carcinoma PATHOLOGY To promote full compliance with coding requirements relating to patient care, physician participation is requested in all cases of cost manager uncertainty. Please assist us with the question(s) below: Please review the Pathology report and please document any relevant diagnosis(es) below: Diagnosis(es): Thank you Adeline HANNAH
== END 2025-08-08 14:41 | disposition home or self-care (01) | DRG 755 ==
LOC: ED 09:16 → EDINP 14:58 → SUATTDRO 14:58 → EDINP 16:38 → 2N 18:53

== ENCOUNTER 2025-09-19 19:15 | Inpatient (IN) ==
[2025-09-19] MEDS: SODIUM CHLORIDE 0.9% 1,000 ML IV SCH ×2 (20:10→21:40)
[2025-09-19] MEDS: FAMOTIDINE 20MG IV PUSH 20 MG/5 ML SYR IV STA (20:10)
--- NOTE | 2025-09-19 20:12 | Emergency Department Note ---
History of Present Illness General Chief complaint: Dehydration Stated complaint: DEHYDRATION, VOMITING, CHEMO TREATMENT Time Seen by Provider: 09/19/25 19:33 History of Present Illness Maximum Pain Intensity: 4 Patient is a 60-year-old female with past medical history significant for COPD, dyslipidemia, recent diagnosis of metastatic ovarian cancer, currently receiving chemotherapy, who presents to the emergency department accompanied by her son for evaluation of nausea and vomiting over the last several days. She had her second chemotherapy treatment last 6 days ago. She is receiving 1 treatment every 21 days currently. She expectedly did not feel well over the weekend, and was nauseous and vomiting, but in the last 2 days, she has gotten worse to the point where she is not able to keep anything down, including small sips of liquids, food or medications. She was given Compazine from oncology but she is not able to keep it down. She feels dizzy, notes a sense of heart racing, has some low back ache and complains of "brain fog." No hematemesis. No urinary symptoms. No fever or chills. She reports generalized diffuse abdominal pain. She has morphine at home, which she has tried but has not been able to keep down to help with her pain. She has no real chest pain, but has some chronic shortness of breath secondary to COPD. Home Medications Medication Instructions Recorded Confirmed Type atorvastatin 40 mg tablet 40 mg PO QAM #30 tabs 01/31/23 09/19/25 Rx albuterol sulfate 90 mcg/actuation 2 puff inhalation Q6H PRN 08/06/25 09/19/25 History aerosol inhaler (Ventolin HFA) cough/sob/wheezing azelastine 137 mcg (0.1 %) nasal 1 spray NA AMPM 08/06/25 09/19/25 History spray fluticasone propionate 50 2 spray KEENA AMHS 08/06/25 09/19/25 History mcg/actuation nasal spray,suspension ipratropium 0.5 mg-albuterol 3 mg 3 ml inhalation Q4H PRN 08/06/25 09/19/25 History (2.5 mg base)/3 mL nebulization cough,shortness of breath soln loratadine 10 mg tablet 10 mg PO QAM 08/06/25 09/20/25 History losartan 25 mg tablet 25 mg PO QAM 08/06/25 09/20/25 History montelukast 10 mg tablet 10 mg PO HS 08/06/25 09/20/25 History aspirin 81 mg tablet,delayed 81 mg PO DAILY 09/19/25 09/19/25 History release buspirone 5 mg tablet 5 mg PO AMHS 09/19/25 09/19/25 History desvenlafaxine succinate 25 mg 25 mg PO QAM 09/19/25 09/19/25 History tablet,extended release 24 hr dexamethasone 4 mg tablet 20 mg PO UD 09/19/25 09/19/25 History fluticasone fur. 200 mcg-umeclid 1 inh inhalation QAM 09/20/25 09/20/25 History 62.5 mcg-vilant 25 mcg inhalat.powder (Trelegy Ellipta) ibuprofen 200 mg tablet (Motrin IB) 200 mg PO Q8H PRN Headache 09/20/25 09/20/25 History metoprolol succinate 25 mg 25 mg PO AMHS 09/20/25 09/20/25 History tablet,extended release 24 hr morphine 15 mg immediate release 15 mg PO Q4H PRN Pain, Severe 09/20/25 09/20/25 History tablet olanzapine 5 mg tablet 5 mg PO HS 09/20/25 09/20/25 History pantoprazole 40 mg tablet,delayed 40 mg PO DAILYBB 09/20/25 09/20/25 History release potassium chloride 10 mEq 10 meq PO QAM 09/20/25 09/20/25 History tablet,extended release prochlorperazine maleate 10 mg 10 mg PO Q6H PRN Nausea 09/20/25 09/20/25 History tablet triamcinolone acetonide 0.5 % 1 applic topical AMHS PRN Skin 09/20/25 09/20/25 History topical cream Irritation Allergies Allergy/AdvReac Type Severity Reaction Status Date / Time ondansetron [From Zofran] AdvReac ABNORMAL Verified 09/19/25 23:46 CARDIAC RHYTHM Past Med/Surg History Problem List (Updated 09/20/25 @ 07:20 by Parker Miles MD) Sepsis 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 (Acute) Intractable vomiting with nausea (Acute) Mass of right ovary Peritoneal carcinomatosis Pleural effusion on right ELIZABETH (acute kidney injury) (Acute) Acute upper abdominal pain (Acute) Abdominal carcinomatosis (Acute) Medical History Allergic rhinitis NYHA class 3 systolic congestive heart failure with reduced left ventricular function Atrial tachycardia NSVT (nonsustained ventricular tachycardia) Abnormal cardiovascular stress test Depression JAROCHO (obstructive sleep apnea) Reflex sympathetic dystrophy of other specified site Asthma with COPD COPD (chronic obstructive pulmonary disease) Surgical History 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 S/P tubal ligation S/P cataract surgery Family History (Updated 08/06/25 @ 15:34 by Stacey Hood PA-C) Mother Dementia Sister Dementia Aunt Dementia Denies family history of Ovarian cancer Breast cancer Social History Smoking Status: Former smoker Smoking End Date: 11 years ago; Second Hand Exposure: No; Do You Dip or Chew Tobacco: No; Hx Alcohol Use: Yes Hx Substance Use: No Preferred Language: Persian Communication Ability: Effective Cost Reduction Engineer Required: No Beliefs That Will Affect Care: None Current Living Situation: Alone Current Living Situation Comment: home alone Feels Safe at Home: Yes Safety Concerns: Feels Safe At This Time Assistive Devices: CPAP and Nebulizer Review of Systems A total of 10 systems reviewed and were otherwise negative Physical Exam Vital Signs Vital Signs - 24 hr 09/19/25 19:21 09/19/25 19:51 09/19/25 20:39 Temperature 36.4 C L 36.7 C Temperature Source Oral Oral Pulse Rate 83 141 H Pulse Rate [Apical] 146 H Pulse Rhythm [Apical] Regular Pulse Strength [Apical] Normal Respiratory Rate 16 19 Respiratory Effort / Characteristics Non-Labored Spontaneous Respiratory Depth Normal Respiratory Pattern Regular Blood Pressure 125/85 Blood Pressure [Right Arm] 121/94 Blood Pressure Mean 98 Blood Pressure Mean [Right Arm] 103 Pulse Oximetry 93 93 Oxygen Delivery Method Room Air Room Air Sepsis Recent Fever Within 48 Hours No Sepsis New/Unexplained Change in Mental Status No Sepsis Action Taken by Nursing No Action Required 09/19/25 21:06 09/19/25 22:03 09/19/25 23:00 Temperature Temperature Source Pulse Rate 116 H 117 H 114 H Pulse Rate [Apical] Pulse Rhythm [Apical] Pulse Strength [Apical] Respiratory Rate 12 19 14 Respiratory Effort / Characteristics Respiratory Depth Respiratory Pattern Blood Pressure 148/95 H 143/96 H 136/107 H Blood Pressure [Right Arm] Blood Pressure Mean 112 111 123 Blood Pressure Mean [Right Arm] Pulse Oximetry 95 95 94 Oxygen Delivery Method Sepsis Recent Fever Within 48 Hours Sepsis New/Unexplained Change in Mental Status Sepsis Action Taken by Nursing 09/19/25 23:30 Temperature Temperature Source Pulse Rate 104 H Pulse Rate [Apical] Pulse Rhythm [Apical] Pulse Strength [Apical] Respiratory Rate 22 Respiratory Effort / Characteristics Respiratory Depth Respiratory Pattern Blood Pressure 147/106 H Blood Pressure [Right Arm] Blood Pressure Mean 130 Blood Pressure Mean [Right Arm] Pulse Oximetry 95 Oxygen Delivery Method Sepsis Recent Fever Within 48 Hours Sepsis New/Unexplained Change in Mental Status Sepsis Action Taken by Nursing CONSTITUTIONAL: Patient is an ill-appearing 60-year-old female who is awake and alert and actively vomiting into an emesis bag. EYES: Pupils equal, round, reactive to light and accommodation. EOMs intact without nystagmus. Sclera are anicteric. ENT: Tympanic membranes intact, with normal landmarks. External canals are clear. Oral and nasopharynx are clear. Mucous membranes are dry. CARDIOVASCULAR: Tachycardic but regular appreciated. RESPIRATORY: Breath sounds equal and clear to auscultation. GI: Bowel sounds are present. Abdomen is soft, mildly distended, diffusely tender to palpation throughout the abdomen without localized guarding or rebound. MUSCULOSKELETAL: Full range of motion of extremities x 4 with good strength. No cyanosis, edema, joint tenderness or swelling. No deformity. INTEGUMENTARY: No lesions or rash, normal skin turgor. NEUROLOGICAL: Alert, oriented, and cooperative. Cranial nerves, sensation and strength grossly intact. LYMPH: No lymphadenopathy. Course Course The patient was seen and evaluated as above. External medical records reviewed, including her hospitalization from last month. She presents to the emergency department for evaluation of intractable nausea and vomiting after chemotherapy last week. IV lock was initiated, laboratory studies were collected. She was given a liter bolus of normal saline solution, Pepcid, Phenergan and morphine IV. On reassessment, she reported minimal improvement. She was given a second liter of normal saline solution and Reglan 10 mg IV. Diagnostics, as interpreted by me: Laboratory studies: Mild leukopenia, white count 3800. H&H 13.6 and 38.3, platelet count 123,000. No neutropenia. Potassium slightly low 3.4, otherwise no significant electrolyte imbalance. Renal functions are normal. No transaminitis. Lipase is not elevated. Urine microscopy concerning for contamination with greater than 30 epithelial cells, however leukocyte esterase, WBCs, RBCs and 3+ bacteria are noted, a urine culture is pending. Cardiac monitoring: An order was placed for continuous cardiac monitoring. The monitor shows a sinus tachycardia in the 110s. Case reviewed with attending physician, Dr. Dozier who agrees with the ED workup. Considered imaging but abdominal exam is really benign, and did not expect to see anything different than the previously noted metastatic disease. Patient was reassessed frequently. Family is at the bedside. Laboratory findings were reviewed with them. Reviewed options, including a trial of home care, versus admission/observation for further IV fluids and antiemetics. Upon consideration of both options the patient feels that she is not well enough to go home and would prefer to come into the hospital, which I think is reasonable. Patient reviewed with ED welfare case worker and consultation placed with Dr. Singh with the [facility] service for admission.. Chronic conditions affecting care: COPD, hypertension, dyslipidemia, metastatic ovarian cancer chemotherapy Differential diagnosis: GERD, gastritis, esophagitis, peptic ulcer disease, infectious versus inflammatory colitis/enteritis, foodborne illness, biliary pathology, appendicitis, bowel obstruction, perforation, abscess, mass or malignancy, electrolyte or metabolic abnormality, dehydration, among others. Administered Medications Aspirin (Aspirin 81 Mg Ectab) 81 mg PO DAILY [facility]ISES Stop: 10/20/25 08:59 Last Admin: 09/20/25 09:45 Dose: 81 mg Documented By: blaire Atorvastatin Calcium (Atorvastatin 40 Mg Tab) 40 mg PO [facility] ULISES Stop: 10/20/25 08:59 Last Admin: 09/20/25 09:45 Dose: 40 mg Documented By: blaire Azelastine HCl (Azelastine Hcl 0.1% Nasal 200 Sprays/27,400 Mcg Btl) 1 sprays NA [facility] ULISES Stop: 10/20/25 08:59 Last Admin: 09/20/25 09:45 Dose: 1 sprays Documented By: blaire Buspirone HCl (Buspirone 5 Mg Tab) 5 mg PO [facility] Stop: 10/20/25 08:59 Last Admin: 09/20/25 09:45 Dose: 5 mg Documented By: blaire Fluticasone Furoate (Fluticasone Furoate 200mcg 14 Puffs/Inhaler) 1 puffs INH DAILY [facility] Stop: 10/20/25 08:59 Last Admin: 09/20/25 09:45 Dose: 1 puffs Documented By: blaire Fluticasone Propionate (Fluticasone Propionate Na Spr 16 Gm Btl) 2 sprays KEENA AMHS ULISES Stop: 10/20/25 08:59 Last Admin: 09/20/25 09:45 Dose: 2 sprays Documented By: blaire Hydromorphone HCl (Hydromorphone Inj 0.5 Mg/0.5 Ml Syr) 0.5 mg IV Q6H PRN PRN Reason: Severe Pain (Scale 7, 8, 9,10) Stop: 10/04/25 11:32 Last Admin: 09/20/25 11:51 Dose: 0.5 mg Documented By: blaire Cefepime HCl (Maxipime 2000mg) 2,000 mg in 20 mls @ 5 mls/min IV Q8H [facility]; Protocol Stop: 09/30/25 06:59 Last Admin: 09/20/25 15:33 Dose: 5 mls/min Documented By: blaire Admin: 09/20/25 09:45 Dose: 5 mls/min Documented By: blaire Loratadine (Loratadine 10 Mg Tab) 10 mg PO QAM [facility] Stop: 10/20/25 08:59 Last Admin: 09/20/25 09:45 Dose: 10 mg Documented By: blaire Losartan Potassium (Losartan Potassium 25 Mg Tab) 25 mg PO QAM [facility] Stop: 10/20/25 08:59 Last Admin: 09/20/25 09:45 Dose: 25 mg Documented By: blaire Metoprolol Succinate (Metoprolol Succ 25mg Ext Rel Tab) 25 mg PO AMHS [facility] Stop: 10/20/25 08:59 Last Admin: 09/20/25 09:45 Dose: 25 mg Documented By: blaire Miscellaneous (Pristiq--Order Awaiting Action) 1 each N/A QS [facility] Stop: 10/20/25 07:59 Last Admin: 09/20/25 15:54 Dose: Not Given Documented By: blaire Admin: 09/20/25 09:47 Dose: Not Given Documented By: blaire Oxycodone HCl (Oxycodone Hcl Ir 5 Mg Tab (Immediate Release)) 5 mg PO Q4H PRN PRN Reason: Pain Stop: 10/03/25 23:09 Last Admin: 09/20/25 03:25 Dose: 5 mg Documented By: Admin: 09/19/25 23:17 Dose: 5 mg Documented By: TONIE Pantoprazole Sodium (Pantoprazole 40 Mg Tab) 40 mg PO DAILYBB ULISES Stop: 10/20/25 06:29 Last Admin: 09/20/25 06:05 Dose: 40 mg Documented By: REMY Umeclidinium/Vilanterol (Umeclidinium/Vilanterol 62.5/25mcg 7 Puffs/Inhaler) 1 puffs INH DAILY [facility] Stop: 10/20/25 08:59 Last Admin: 09/20/25 09:45 Dose: 1 puffs Documented By: blaire Discontinued Medications Sodium Chloride (Nss) 1,000 mls @ 999 mls/hr IV .Q1H1M [facility]ISES Stop: 09/19/25 21:02 Last Infusion: 09/19/25 21:47 Dose: Infused Documented By: Admin: 09/19/25 20:10 Dose: 999 mls/hr Documented By: TONIE Promethazine HCl (Phenergan) 25 mg in 51 mls @ 204 mls/hr IV NOW STA Stop: 09/19/25 20:15 Last Infusion: 09/19/25 21:01 Dose: Infused Documented By: Admin: 09/19/25 20:14 Dose: 204 mls/hr Documented By: TONIE Famotidine (Pepcid 20mg Iv Push) 20 mg in 5 mls @ 2.5 mls/min IV NOW STA Stop: 09/19/25 20:02 Last Admin: 09/19/25 20:10 Dose: 2.5 mls/min Documented By: OTNIE Sodium Chloride (Nss) 1,000 mls @ 999 mls/hr IV .Q1H1M ULISES Stop: 09/19/25 22:08 Last Infusion: 09/19/25 23:07 Dose: Infused Documented By: Admin: 09/19/25 21:40 Dose: 999 mls/hr Documented By: TONIE Potassium Chloride 20 meq/ (Lactated Ringer's) 1,010 mls @ 60 mls/hr IV .[id number] ONE Stop: 09/20/25 15:49 Last Infusion: 09/20/25 16:47 Dose: Infused Documented By: blaire Admin: 09/19/25 23:41 Dose: 60 mls/hr Documented By: TONIE Cefepime HCl (Maxipime 2000mg) 2,000 mg in 20 mls @ 5 mls/min IV NOW ONE; Protocol Stop: 09/19/25 23:03 Last Admin: 09/19/25 23:17 Dose: 5 mls/min Documented By: TONIE Acetaminophen (Ofirmev) 1,000 mg in 100 mls @ 400 mls/hr IV NOW STA Stop: 09/19/25 23:24 Last Infusion: 09/19/25 23:40 Dose: Infused Documented By: Admin: 09/19/25 23:16 Dose: 400 mls/hr Documented By: TONIE Magnesium Sulfate/Dextrose (Magnesium Sulfate / D5w) 1 gm in 100 mls @ 50 mls/hr IV Q2H [facility]ISES Stop: 09/20/25 07:29 Last Infusion: 09/20/25 10:30 Dose: Infused Documented By: blaire Admin: 09/20/25 06:05 Dose: 50 mls/hr Documented By: Infusion: 09/20/25 06:05 Dose: Infused Documented By: Admin: 09/20/25 04:24 Dose: 50 mls/hr Documented By: REMY Ioversol (Optiray 320 100ml) 100 ml IV ONCE ONE Stop: 09/20/25 00:59 Last Admin: 09/20/25 01:00 Dose: 93 ml Documented By: MALCOLM Metoclopramide HCl (Metoclopramide Hcl Inj 5 Mg/Ml 2 Ml Vial) 10 mg IV NOW STA Stop: 09/19/25 21:19 Last Admin: 09/19/25 21:40 Dose: 10 mg Documented By: TONIE Metoprolol Succinate (Metoprolol Succ 25mg Ext Rel Tab) 25 mg PO NOW STA Stop: 09/19/25 23:06 Last Admin: 09/19/25 23:41 Dose: 25 mg Documented By: TONIE Miscellaneous (Patient's Height &/Or Weight Needed) 1 each N/A Q2H STA Stop: 09/19/25 23:00 Last Admin: 09/19/25 23:26 Dose: Not Given Documented By: TONIE Morphine Sulfate (Morphine Sulfate 4 Mg/Ml 1 Ml Carp\\Vial) 4 mg IV NOW STA Stop: 09/19/25 21:09 Last Admin: 09/19/25 21:40 Dose: 4 mg Documented By: TONIE Potassium Chloride (Potassium Chloride Pwd 20 Meq Pack) 40 meq PO NOW STA Stop: 09/19/25 22:47 Last Admin: 09/19/25 23:20 Dose: 40 meq Documented By: TONIE Potassium Chloride (Potassium Chloride Crtab 20 Meq Tabcr) 40 meq PO NOW STA Stop: 09/20/25 11:26 Last Admin: 09/20/25 12:00 Dose: 40 meq Documented By: blaire Potassium Chloride (Potassium Chloride Crtab 20 Meq Tabcr) 40 meq PO NOW STA Stop: 09/20/25 11:32 Last Admin: 09/20/25 12:00 Dose: Not Given Documented By: blaire Medical Decision Making Differential Diagnosis See ED course Medical Records Attestation: I reviewed the patient's medical records. Home Medications Current Medication List: was personally reviewed by me Laboratory Data Attestation: I reviewed the patient's lab results. 09/20/25 09:05 09/20/25 09:05 Lab Results 09/19/25 09/19/25 09/19/25 Range/Units 20:00 21:45 23:13 WBC 3.89 L (4.8-10.8) K/ul RBC 4.88 (4.20-5.40) M/uL Hgb 13.6 (12.0-16.0) g/dl Hct 38.3 (37.0-47.0) % MCV 78.5 L (80.0-100.0) fL MCH 27.9 (25.0-34.0) pg MCHC 35.5 (32.0-36.0) g/dL RDW Std Deviation 41.5 (36.4-46.3) fL RDW Coeff of Tori 14.6 H (11.5-14.5) % Plt Count 123 L (130-400) K/uL MPV 10.5 (9.4-12.4) fL Immature Gran % (Auto) 0.8 % Neut % (Auto) 73.7 % Lymph % (Auto) 20.1 % [place] % (Auto) 2.6 % Eos % (Auto) 1.8 % Baso % (Auto) 1.0 % Neut # (Auto) 2.87 (1.40-6.50) K/uL Lymph # (Auto) 0.78 L (1.20-3.40) K/uL [place] # (Auto) 0.10 L (0.11-0.59) K/uL Eos # (Auto) 0.07 (0.00-0.50) K/uL Baso # (Auto) 0.04 (0.00-0.20) K/uL Immature Gran # (Auto) 0.03 (0.01-0.20) K/uL Sodium 137 (136-145) mmol/L Potassium 3.4 L (3.5-5.1) mmol/L Chloride 98 (98-107) mmol/L Carbon Dioxide 24 (21-32) mmol/L Anion Gap 15 H (3-11) BUN 23 (6-23) mg/dl Creatinine 0.96 (0.6-1.2) mg/dl Est Cr Clr Drug Dosing Not Reportable eGFR 67.73 BUN/Creatinine Ratio 24.0 H (10-20) Glucose 132 H (70-99(Fasting)) mg/dl Lactate 1.3 (0.4-2.0) mmol/L Calcium 9.0 (8.6-10.3) mg/dl Magnesium 1.5 L (1.7-2.4) mg/dl Total Bilirubin 1.4 H (0.2-1.0) mg/dl AST 26 (13-39) U/L ALT 25 (7-52) U/L Alkaline Phosphatase 98 (34-104) U/L Total Protein 7.6 (6.0-8.3) gm/dl Albumin 4.0 (3.4-5.0) gm/dl Globulin 3.6 (2.5-4.0) gm/dl Albumin/Globulin Ratio 1.1 (0.9-2) Lipase 10 L (11-82) U/L Urine Color Dark Yellow Urine Appearance Cloudy A (Clear) Urine pH 5.5 (4.5-7.5) Ur Specific [place] 1.023 (1.000-1.030) Urine Protein 2+ H (Negative) Urine Glucose (UA) Trace H (Negative) Urine Ketones 2+ H (Negative) Urine Blood Negative (Negative) Urine Nitrite Negative (Negative) Urine Bilirubin Negative (Negative) Urine Urobilinogen Negative (Negative) Ur Leukocyte Esterase 1+ H (Negative) Urine WBC (Auto) 11-20 H (0-5) /hpf Urine RBC (Auto) 11-20 H (0-2) /hpf U Hyaline Cast (Auto) >20 H (0-2) /lpf U Epithel Cells (Auto) >20 H (0-2) /hpf Urine Bacteria (Auto) 3+ H (None Seen) Hyaline Casts Present A (None Presnt) /lpf Urine Mucus Present A (None Prsent) Urine Comment MDM Narrative See ED course. 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 I discussed the case with the ELIUD and agree with the findings and plan as documented in ELIUD Matias's note.
[2025-09-19] MEDS: PROMETHAZINE 25 MG/51 ML BAG IV STA (20:14)
[2025-09-19 20:21] LABS: Hematocrit (blood only) 38.3 % (37.0-47.0); Hemoglobin 13.6 g/dl (12.0-16.0); Immature Granulocytes # (auto) 0.03 K/uL (0.01-0.20); Immature Granulocytes % (auto) 0.8 %; Mean Corpuscular Hemoglobin 27.9 pg (25.0-34.0); Mean Corpuscular Volume 78.5 fL (80.0-100.0); Platelet Count 123 K/uL (130-400); RDW Standard Deviation 41.5 fL (36.4-46.3); Red Blood Count 4.88 M/uL (4.20-5.40); White Blood Count 3.89 K/ul (4.8-10.8)
[2025-09-19 20:36] LABS: Alanine Aminotransferase 25 U/L (7-52); Albumin Globulin Ratio 1.1 (0.9-2); Albumin Level 4.0 gm/dl (3.4-5.0); Alkaline Phosphatase 98 U/L (34-104); Anion Gap 15 (3-11); Bilirubin,Total 1.4 mg/dl (0.2-1.0); Blood Urea Nitrogen 23 mg/dl (6-23); Calcium 9.0 mg/dl (8.6-10.3); Carbon Dioxide 24 mmol/L (21-32); Chloride 98 mmol/L (98-107); Globulin 3.6 gm/dl (2.5-4.0); Glucose 132 mg/dl (70-99(Fasting)); Lipase 10 U/L (11-82); Potassium 3.4 mmol/L (3.5-5.1); Sodium 137 mmol/L (136-145); Total Protein 7.6 gm/dl (6.0-8.3)
[2025-09-19] MEDS: MoRPHine SULFATE 4 MG/ML 1 ML CARP\\VIAL IV STA (21:40)
[2025-09-19] MEDS: METOCLOPRAMIDE HCL INJ 5 MG/ML 2 ML VIAL IV STA (21:40)
[2025-09-19 22:15] LABS: Appearance Urine Cloudy (Clear); Cast Urine Automated >20 /lpf (0-2); Glucose Urine UA Trace (Negative)
[2025-09-19 22:22] LABS: Epithelial Cell Urine Auto >20 /hpf (0-2)
[2025-09-19 22:25] LABS: Bacteria Urine Automated 3+ (None Seen)
[2025-09-19] MEDS ORDERED: ACETAMINOPHEN 325 MG TAB PO PRN (23:10)
[2025-09-19] MEDS: ACETAMINOPHEN 1,000 MG/100 ML VIAL IV STA (23:16)
[2025-09-19] MEDS: CEFEPIME 2000MG 2,000 MG/20 ML SYR IV ONE (23:17)
[2025-09-19] MEDS: POTASSIUM CHLORIDE PWD 20 MEQ PACK PO STA (23:20)
[2025-09-19] MEDS: Patient's HEIGHT &/or WEIGHT Needed STA (23:26)
[2025-09-19] MEDS: METOPROLOL SUCC 25MG EXT REL TAB PO STA (23:41)
[2025-09-19] MEDS: POTASSIUM CHLORIDE 20 MEQ in LACTATED RINGER'S 1,000 ML IV ONE (23:41)
--- NOTE | 2025-09-19 23:51 | History & Physical Report ---
Date of Service September 19, 2025 Assessment & Plan (1) Sepsis: Plan: Assessment and plan below following discussion of case with ED provider and reviewing patient history/pertinent normal/abnormal diagnostic test results. Sepsis Secondary to complicated UTI Immunocompromised patient metastatic ovarian cancer ongoing chemotherapy Rule out kidney stone given worsening abdominal discomfort Leukopenia, thrombocytopenia likely secondary to chemotherapy hx PSVT hypertension, slightly elevated secondary to discomfort COPD, not in acute exacerbation hyperlipidemia, on statin Rx Steroid induced hyperglycemia secondary to Decadron chemotherapy Rx rule out DM past tobacco abuse Admit to med/tele CS, cefepime CT abdomen pelvis Check hemoglobin A1c DVT prophylaxis. SCDs Re: Thrombocytopenia Full code Text document was generated using [facility] voice recognition software. It may contain grammatical or spelling errors. Kindly contact undersigned for clarification of any documentation item in question. History of Present Illness Chief Complaint: Worsening abdominal pain, nausea vomiting Primary Care Provider: Carol De La Cruz PA-C History obtained from patient and records. Medical history significant for PSVT, hypertension, COPD, hypertension, hyperlipidemia, GERD, metastatic ovarian cancer ongoing chemotherapy, RSD, past tobacco abuse. Recent confinement last month for peritoneal carcinomatosis and malignant right pleural effusion status post thoracenteses. Chemotherapy eventually initiated outpatient for metastatic ovarian cancer. Patient had worsening lower abdominal pain, nausea, vomiting the last few days. Good bowel movement. Denies chest pain. No cough symptoms. Dizziness described as lightheadedness causing her to be short of breath. Medical History as above Surgical History : BTL, cataract surgeries, fingertip amputation Family History : DM, heart disease, brain aneurysm, stroke Personal/Social history : Past tobacco abuse, occasional EtOH intake, retired [employer] employee Allergies Allergy/AdvReac Type Severity Reaction Status Date / Time ondansetron [From Zofran] AdvReac ABNORMAL Verified 09/19/25 23:46 CARDIAC RHYTHM Home Medications Medication Instructions Recorded Confirmed Type atorvastatin 40 mg tablet 40 mg PO QAM #30 tabs 01/31/23 09/19/25 Rx albuterol sulfate 90 mcg/actuation 2 puff inhalation Q6H PRN 08/06/25 09/19/25 History aerosol inhaler (Ventolin HFA) cough/sob/wheezing azelastine 137 mcg (0.1 %) nasal 1 spray NA AMPM 08/06/25 09/19/25 History spray fluticasone propionate 50 2 spray [facility] 08/06/25 09/19/25 History mcg/actuation nasal spray,suspension ipratropium 0.5 mg-albuterol 3 mg 3 ml inhalation Q4H PRN 08/06/25 09/19/25 History (2.5 mg base)/3 mL nebulization cough,shortness of breath soln loratadine 10 mg tablet 10 mg PO QAM 08/06/25 09/20/25 History losartan 25 mg tablet 25 mg PO QAM 08/06/25 09/20/25 History montelukast 10 mg tablet 10 mg PO HS 08/06/25 09/20/25 History aspirin 81 mg tablet,delayed 81 mg PO DAILY 09/19/25 09/19/25 History release buspirone 5 mg tablet 5 mg PO AMHS 09/19/25 09/19/25 History desvenlafaxine succinate 25 mg 25 mg PO QAM 09/19/25 09/19/25 History tablet,extended release 24 hr dexamethasone 4 mg tablet 20 mg PO UD 09/19/25 09/19/25 History fluticasone fur. 200 mcg-umeclid 1 inh inhalation QA 09/20/25 09/20/25 History 62.5 mcg-vilant 25 mcg inhalat.powder (Trelegy Ellipta) ibuprofen 200 mg tablet (Motrin IB) 200 mg PO Q8H PRN Headache 09/20/25 09/20/25 History metoprolol succinate 25 mg 25 mg PO AMHS 09/20/25 09/20/25 History tablet,extended release 24 hr morphine 15 mg immediate release 15 mg PO Q4H PRN Pain, Severe 09/20/25 09/20/25 History tablet olanzapine 5 mg tablet 5 mg PO HS 09/20/25 09/20/25 History pantoprazole 40 mg tablet,delayed 40 mg PO DAILYBB 09/20/25 09/20/25 History release potassium chloride 10 mEq 10 meq PO QAM 09/20/25 09/20/25 History tablet,extended release prochlorperazine maleate 10 mg 10 mg PO Q6H PRN Nausea 09/20/25 09/20/25 History tablet triamcinolone acetonide 0.5 % 1 applic topical AMHS PRN Skin 09/20/25 09/20/25 History topical cream Irritation Past Med/Surg History Problem List (Updated 09/20/25 @ 07:20 by Parker Miles MD) Sepsis 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 (Acute) Intractable vomiting with nausea (Acute) Mass of right ovary Peritoneal carcinomatosis Pleural effusion on right ELIZABETH (acute kidney injury) (Acute) Acute upper abdominal pain (Acute) Abdominal carcinomatosis (Acute) Medical History Allergic rhinitis NYHA class 3 systolic congestive heart failure with reduced left ventricular function Atrial tachycardia NSVT (nonsustained ventricular tachycardia) Abnormal cardiovascular stress test Depression JAROCHO (obstructive sleep apnea) Reflex sympathetic dystrophy of other specified site Asthma with COPD COPD (chronic obstructive pulmonary disease) Surgical History 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 S/P tubal ligation S/P cataract surgery Family History (Updated 08/06/25 @ 15:34 by Stacey Hood PA-C) Mother Dementia Sister Dementia Aunt Dementia Denies family history of Ovarian cancer Breast cancer Social History Smoking Status: Former smoker Smoking End Date: 11 years ago; Second Hand Exposure: No; Do You Dip or Chew Tobacco: No; Hx Alcohol Use: Yes Hx Substance Use: No Preferred Language: Danish Communication Ability: Effective Admitted Attorneys Required: No Beliefs That Will Affect Care: None Current Living Situation: Alone Current Living Situation Comment: home alone Feels Safe at Home: Yes Safety Concerns: Feels Safe At This Time Assistive Devices: Denture - Upper, Denture - Lower and Glasses Review of Systems Review of Systems: As per HPI, all other systems reviewed and negative Physical Exam Physical Exam: GENERAL: Slightly uncomfortable, no respiratory distress SKIN: Normal color, warm HEENT: Alopecia, [place] palpebral conjunctivae, no ptosis, dry buccal mucosa NECK : Supple, no tenderness CHEST : Decreased breath sounds, no tenderness HEART : Tachycardic, no obvious murmurs ABDOMEN: Some distention, hypogastric tenderness EXTREMITIES : Minimal LE swelling, no LE tenderness, palpable pulses, no other conspicuous deformities noted NEUROLOGIC : Coherent, no facial asymmetry, no other gross focality Results & Data Results & Data Vital Signs (Past 12 Hours) Vital Signs Temp Pulse Pulse Resp BP BP Pulse Ox 09/19/25 23:30 104 H 22 147/106 H 95 09/19/25 23:00 114 H 14 136/107 H 94 09/19/25 22:03 117 H 19 143/96 H 95 09/19/25 21:06 116 H 12 148/95 H 95 09/19/25 20:39 141 H 09/19/25 19:51 36.7 C 146 H 19 121/94 93 09/19/25 19:21 36.4 C L 83 16 125/85 93 O2 Del Method 09/19/25 23:30 09/19/25 23:00 09/19/25 22:03 09/19/25 21:06 09/19/25 20:39 09/19/25 19:51 Room Air 09/19/25 19:21 Room Air Laboratory Results Laboratory Results WBC 3.89 K/ul (4.8-10.8) L 09/19/25 20:00 RBC 4.88 M/uL (4.20-5.40) 09/19/25 20:00 Hgb 13.6 g/dl (12.0-16.0) 09/19/25 20:00 Hct 38.3 % (37.0-47.0) 09/19/25 20:00 MCV 78.5 fL (80.0-100.0) L 09/19/25 20:00 MCH 27.9 pg (25.0-34.0) 09/19/25 20:00 MCHC 35.5 g/dL (32.0-36.0) 09/19/25 20:00 RDW Std Deviation 41.5 fL (36.4-46.3) 09/19/25 20:00 RDW Coeff of Tori 14.6 % (11.5-14.5) H 09/19/25 20:00 Plt Count 123 K/uL (130-400) L 09/19/25 20:00 MPV 10.5 fL (9.4-12.4) 09/19/25 20:00 Immature Gran % (Auto) 0.8 % 09/19/25 20:00 Neut % (Auto) 73.7 % 09/19/25 20:00 Lymph % (Auto) 20.1 % 09/19/25 20:00 [place] % (Auto) 2.6 % 09/19/25 20:00 Eos % (Auto) 1.8 % 09/19/25 20:00 Baso % (Auto) 1.0 % 09/19/25 20:00 Neut # (Auto) 2.87 K/uL (1.40-6.50) 09/19/25 20:00 Lymph # (Auto) 0.78 K/uL (1.20-3.40) L 09/19/25 20:00 [place] # (Auto) 0.10 K/uL (0.11-0.59) L 09/19/25 20:00 Eos # (Auto) 0.07 K/uL (0.00-0.50) 09/19/25 20:00 Baso # (Auto) 0.04 K/uL (0.00-0.20) 09/19/25 20:00 Immature Gran # (Auto) 0.03 K/uL (0.01-0.20) 09/19/25 20:00 Sodium 137 mmol/L (136-145) 09/19/25 20:00 Potassium 3.4 mmol/L (3.5-5.1) L 09/19/25 20:00 Chloride 98 mmol/L (98-107) 09/19/25 20:00 Carbon Dioxide 24 mmol/L (21-32) 09/19/25 20:00 Anion Gap 15 (3-11) H 09/19/25 20:00 BUN 23 mg/dl (6-23) 09/19/25 20:00 Creatinine 0.96 mg/dl (0.6-1.2) 09/19/25 20:00 Est Cr Clr Drug Dosing Not Reportable 09/19/25 20:00 eGFR 67.73 09/19/25 20:00 BUN/Creatinine Ratio 24.0 (10-20) H 09/19/25 20:00 Glucose 132 mg/dl (70-99(Fasting)) H 09/19/25 20:00 Lactate 1.3 mmol/L (0.4-2.0) 09/19/25 23:13 Calcium 9.0 mg/dl (8.6-10.3) 09/19/25 20:00 Total Bilirubin 1.4 mg/dl (0.2-1.0) H 09/19/25 20:00 AST 26 U/L (13-39) 09/19/25 20:00 ALT 25 U/L (7-52) 09/19/25 20:00 Alkaline Phosphatase 98 U/L (34-104) 09/19/25 20:00 Total Protein 7.6 gm/dl (6.0-8.3) 09/19/25 20:00 Albumin 4.0 gm/dl (3.4-5.0) 09/19/25 20:00 Globulin 3.6 gm/dl (2.5-4.0) 09/19/25 20:00 Albumin/Globulin Ratio 1.1 (0.9-2) 09/19/25 20:00 Lipase 10 U/L (11-82) L 09/19/25 20:00 Urine Color Dark Yellow 09/19/25 21:45 Urine Appearance Cloudy (Clear) A 09/19/25 21:45 Urine pH 5.5 (4.5-7.5) 09/19/25 21:45 Ur Specific [place] 1.023 (1.000-1.030) 09/19/25 21:45 Urine Protein 2+ (Negative) H 09/19/25 21:45 Urine Glucose (UA) Trace (Negative) H 09/19/25 21:45 Urine Ketones 2+ (Negative) H 09/19/25 21:45 Urine Blood Negative (Negative) 09/19/25 21:45 Urine Nitrite Negative (Negative) 09/19/25 21:45 Urine Bilirubin Negative (Negative) 09/19/25 21:45 Urine Urobilinogen Negative (Negative) 09/19/25 21:45 Ur Leukocyte Esterase 1+ (Negative) H 09/19/25 21:45 Urine WBC (Auto) 11-20 /hpf (0-5) H 09/19/25 21:45 Urine RBC (Auto) 11-20 /hpf (0-2) H 09/19/25 21:45 U Hyaline Cast (Auto) >20 /lpf (0-2) H 09/19/25 21:45 U Epithel Cells (Auto) >20 /hpf (0-2) H 09/19/25 21:45 Urine Bacteria (Auto) 3+ (None Seen) H 09/19/25 21:45 Hyaline Casts Present /lpf (None Presnt) A 09/19/25 21:45 Urine Mucus Present (None Prsent) A 09/19/25 21:45 Urine Comment 09/19/25 21:45 Diagnostic Findings Chest x-ray as per my interpretation: No infiltrate, no congestion
[2025-09-20 00:10] LABS: Magnesium 1.5 mg/dl (1.7-2.4)
[2025-09-20] MEDS: OPTIRAY 320 100ml IV ONE (01:00)
--- NOTE | 2025-09-20 01:29 | XRay Report ---
EXAM: XR chest 1V portable CLINICAL HISTORY: Sob TECHNIQUE: An X-ray image of the chest was obtained in the AP portable projection. COMPARISON: CRX dated 08/08/2025. FINDINGS: Pulmonary Parenchyma: Right-sided basal atelectasis, stable. The lungs are clear bilaterally. There is no evidence of consolidation, collapse, or focal opacities. No pulmonary nodules are identified. There is no evidence of pleural effusion or pleural thickening. Heart and Mediastinum: The heart size and shape are normal. There is no mediastinal widening or masses. No hilar or mediastinal lymphadenopathy is seen. Bony Thorax: The bony thorax appears intact without fractures or deformities. Soft Tissues: The soft tissues overlying the chest wall are unremarkable. IMPRESSION: 1. No acute cardiopulmonary abnormalities are identified. 2. No evidence of consolidation, pneumothorax, or pleural effusion. 3. No gross interval changes. Electronically signed by Christian Vegas 09-20-2025 01:28 AM
[2025-09-20] MEDS ORDERED: IPRATROPIUM BROMIDE NEB SOLN 0.02% 0.5MG/2.5ML VIAL INH PRN (03:23)
[2025-09-20] MEDS ORDERED: LEVALBUTEROL 1.25 MG/3 ML NEB NEB PRN (03:23)
--- NOTE | 2025-09-20 03:34 | CT Scan Report ---
EXAM: CT abd pelvis IV con only CLINICAL HISTORY: abd pain TECHNIQUE: Contiguous axial images were obtained from the level of the diaphragm to the pubic symphysis with intravenous contrast. Coronal and sagittal reconstructions were likewise performed and were indicated to increase the sensitivity for detecting clinically relevant pathology. If intravenous contrast material had not been administered, the likelihood of detecting abnormalities relevant to the patient's condition would have been substantially decreased. CT scan was performed according to ALARA (as low as reasonably achievable) principles. COMPARISON: 08/06/2025 10:17:13 [employer]. FINDINGS: Mild right pleural effusion with basal subsegmental collapse of the right lower lobe is seen. Ill-defined, cake-like omental thickening is noted, involving the upper and mid quadrants of the abdomen. The liver is normal in size and attenuation. No focal liver lesions are seen. There is no intrahepatic or extrahepatic biliary ductal dilatation. Hepatic vasculature is patent. The gallbladder is present. The spleen, pancreas, and adrenal glands are unremarkable. The kidneys are normal in size and attenuation. There is no hydronephrosis or perinephric fat stranding. The right kidney shows a calculus measuring 9 mm in the lower calyx. The ureters are normal in caliber and no ureteral calculi are seen. The bladder is normal in contour. Prior complex cystic mass lesion involving the right ovary is significantly reduced. Right ovary appears bulky at present. Advised ultrasound correlation if clinically indicated. Mild free fluid is noted in the pelvis with adjacent fat stranding/congestion. No focal or diffuse bowel wall thickening or evidence of bowel obstruction is identified. No imaging evidence of appendicitis. Abdominal and pelvic vasculature is patent. No aggressive-appearing osseous lesions are identified. Multiple small, uncomplicated sigmoid colonic diverticula are seen. IMPRESSION: 1. Mild right pleural effusion with basal subsegmental collapse of the right lower lobe is seen ? reduced. 2. Ill-defined, cake-like omental thickening is noted involving the upper and mid quadrants of the abdomen ? reduced. 3. Right renal non-obstructing calculus ? stable. 4. Multiple small, uncomplicated sigmoid colonic diverticula ? stable. 5. Prior complex cystic mass lesion involving the right ovary is significantly reduced. Right ovary appears bulky at present. Advised ultrasound correlation if clinically indicated. 6. Mild free fluid is noted in the pelvis with adjacent fat stranding/congestion ? reduced ascites and peritonitis. Electronically signed by Reymundo Gonzales 09-20-2025 02:12 AM
[2025-09-20] MEDS: MAGNESIUM SULFATE / D5W 1 GM/100 ML BAG IV SCH (04:24)
[2025-09-20] MEDS ORDERED: NON-FORMULARY MEDICATION (Fluticasone-Umeclidin-Vilanter [Trelegy Ellipta] 200-62.5-25 mcg INH SCH (09:00)
[2025-09-20 09:31] LABS: Hematocrit (blood only) 37.7 % (37.0-47.0); Hemoglobin 12.9 g/dl (12.0-16.0); Mean Corpuscular Hemoglobin 27.4 pg (25.0-34.0); Mean Corpuscular Volume 80.2 fL (80.0-100.0); Platelet Count 105 K/uL (130-400); RDW Standard Deviation 43.6 fL (36.4-46.3); Red Blood Count 4.70 M/uL (4.20-5.40); White Blood Count 2.71 K/ul (4.8-10.8)
[2025-09-20 09:36] LABS: Anion Gap 10.0 (3-11); Calcium 8.5 mg/dl (8.6-10.3); Carbon Dioxide 24.0 mmol/L (21-32); Chloride 101.0 mmol/L (98-107); Magnesium 2.0 mg/dl (1.7-2.4); Potassium 3.2 mmol/L (3.5-5.1); Sodium 135.0 mmol/L (136-145)
[2025-09-20 09:42] LABS: Blood Urea Nitrogen 18.0 mg/dl (6-23); Creatinine Clr Calc Pharmacy 85.9 ml/min; Glucose 103.0 mg/dl (70-99(Fasting))
[2025-09-20] MEDS: FLUTICASONE FUROATE 200MCG 14 PUFFS/INHALER INH SCH (09:45)
[2025-09-20] MEDS: CEFEPIME 2000MG 2,000 MG/20 ML SYR IV SCH (09:45)
[2025-09-20] MEDS: LOSARTAN POTASSIUM 25 MG TAB PO SCH (09:45)
[2025-09-20] MEDS: METOPROLOL SUCC 25MG EXT REL TAB PO SCH (09:45)
[2025-09-20] MEDS: AZELASTINE HCL 0.1% NASAL 200 SPRAYS/27,400 MCG BTL SCH (09:45)
[2025-09-20] MEDS: busPIRone 5 MG TAB PO SCH (09:45)
[2025-09-20] MEDS: FLUTICASONE PROPIONATE NA SPR 16 GM BTL NAE SCH (09:45)
[2025-09-20] MEDS: UMECLIDINIUM/VILANTEROL 62.5/25MCG 7 PUFFS/INHALER INH SCH (09:45)
[2025-09-20] MEDS: ASPIRIN 81 MG ECTAB PO SCH (09:45)
[2025-09-20] MEDS: ATORVASTATIN 40 MG TAB PO SCH (09:45)
[2025-09-20] MEDS: LORATADINE 10 MG TAB PO SCH (09:45)
[2025-09-20 09:56] LABS: Immature Granulocytes # (auto) 0.02 K/uL (0.01-0.20); Immature Granulocytes % (auto) 0.7 %
--- NOTE | 2025-09-20 11:34 | Hospitalist Progress Note ---
Date of Service September 20, 2025 Assessment & Plan (1) Sepsis: Plan: 60 yo F w/ PMH of PSVT, hypertension, COPD, hypertension, hyperlipidemia, GERD, metastatic ovarian cancer ongoing chemotherapy, RSD, past tobacco abuse presents w/ worsening lower abdominal pain, nausea, vomiting the last few days [employer]. Pt reports good BM. Pt denies chest pain, fever, cough. She is being managed for the following: Complicated UTI Sepsis POA: Secondary to above. SIRS positive. Lactate WNL. Immunocompromised patient, metastatic ovarian cancer ongoing chemotherapy Patient presents with nausea, vomiting and abdominal pain, noted to have UTI. Admitting CTAP with right renal nonobstructing stable calculus. Follow admitting blood and urine culture. Continue with cefepime. Patient reports improving nausea, vomiting. Advance diet as tolerated. Continue with pain management for low belly pain given history of cancer. Leukopenia, thrombocytopenia: likely secondary to chemotherapy Other chronic medical conditions: Continue with/resume home meds as when able. hx PSVT hypertension, slightly elevated secondary to discomfort COPD, not in acute exacerbation hyperlipidemia, on statin Rx Steroid induced hyperglycemia secondary to Decadron chemotherapy Rx rule out DM, a1c pending as of now. past tobacco abuse DVT prophylaxis. Hep SC, Plt > 100K, monitor plt Full code Text document was generated using [employer] voice recognition software. It may contain grammatical or spelling errors. Kindly contact undersigned for clarification of any documentation item in question. Admission and Anticipated Discharge Date Admission Date: September 19, 2025 Subjective Patient was seen and examined at bedside. Patient was lying in bed, on room air, NAD. Patient reports lower abdominal pain, would like more pain management. Patient reports improving nausea, vomiting and would like to advance the diet. Patient denies fever/sore throat/cough/chest pain. Physical Exam Physical Exam: GENERAL: NAD, no respiratory distress SKIN: Normal color, warm HEENT: Alopecia, [place] palpebral conjunctivae, no ptosis, moist buccal mucosa NECK : Supple, no tenderness CHEST : Decreased breath sounds, no tenderness HEART : Tachycardic in 90s, no obvious murmurs ABDOMEN: Some distention, low abd tender x mild. EXTREMITIES : Minimal LE swelling, no LE tenderness, palpable pulses, no other conspicuous deformities noted NEUROLOGIC : Coherent, no facial asymmetry, no other gross focality Results & Data Results & Data Vital Signs (Past 12 Hours) Vital Signs Temp Pulse Pulse Pulse Resp BP BP 09/20/25 07:23 36.6 C 99 H 18 163/77 H 09/20/25 04:12 36.5 C 82 18 132/79 09/20/25 03:36 36.9 C 110 H 19 138/89 09/20/25 03:27 100 H 09/20/25 01:15 102 H 17 147/89 H 09/20/25 00:34 89 09/20/25 00:30 108 H 17 09/20/25 00:06 114 H 20 104/85 Pulse Ox O2 Del Method O2 Flow Rate 09/20/25 07:23 94 Room Air 09/20/25 04:12 94 Room Air 09/20/25 03:36 96 Nasal Cannula 96 09/20/25 03:27 09/20/25 01:15 94 Room Air 09/20/25 00:34 09/20/25 00:30 94 09/20/25 00:06 94
[2025-09-20] MEDS: HYDROmorphone INJ 0.5 MG/0.5 ML SYR IV PRN (11:51)
[2025-09-20] MEDS: POTASSIUM CHLORIDE CRTAB 20 MEQ TABCR PO STA ×2 (12:00)
[2025-09-20 12:49] LABS: Hemoglobin A1C 6.1 % (4.5-5.6)
[2025-09-20] MEDS: MONTELUKAST SODIUM 10 MG TABLET PO SCH (20:16)
[2025-09-20] MEDS: HEPARIN SOD 5,000 UNIT/0.5 ML VIAL SQ SCH (20:16)
[2025-09-21 03:59] VITALS: O2SAT 95
[2025-09-21 07:40] VITALS: RESP 18
[2025-09-21 08:45] LABS: Anion Gap 5.0 (3-11); Blood Urea Nitrogen 15.0 mg/dl (6-23); Calcium 8.2 mg/dl (8.6-10.3); Carbon Dioxide 28.0 mmol/L (21-32); Chloride 104.0 mmol/L (98-107); Creatinine Clr Calc Pharmacy 87.9 ml/min; Glucose 98.0 mg/dl (70-99(Fasting)); Magnesium 1.7 mg/dl (1.7-2.4); Potassium 3.8 mmol/L (3.5-5.1); Sodium 137.0 mmol/L (136-145)
[2025-09-21 08:55] LABS: Hematocrit (blood only) 30.9 % (37.0-47.0); Hemoglobin 10.3 g/dl (12.0-16.0); Mean Corpuscular Hemoglobin 26.5 pg (25.0-34.0); Mean Corpuscular Volume 79.6 fL (80.0-100.0); Platelet Count 77 K/uL (130-400); RDW Standard Deviation 44.2 fL (36.4-46.3); Red Blood Count 3.88 M/uL (4.20-5.40); White Blood Count 1.15 K/ul (4.8-10.8)
[2025-09-21] MEDS: PREGABALIN 25 MG CAP PO SCH (10:15)
[2025-09-21 11:09] VITALS: TEMP 97.9
[2025-09-21 12:02] VITALS: BP 136/72; PULSE 110
--- NOTE | 2025-09-21 13:38 | Discharge Summary ---
Discharge Summary Date of Service September 21, 2025 Principal Dx & Hospital Course #1 = Principal Diagnosis (1) Sepsis: 60 yo F w/ PMH of PSVT, hypertension, COPD, hypertension, hyperlipidemia, GERD, metastatic ovarian cancer ongoing chemotherapy, RSD, past tobacco abuse presents w/ worsening lower abdominal pain, nausea, vomiting the last few days [employer]. Pt reports good BM. Pt denies chest pain, fever, cough. She is being managed for the following: Sepsis POA Immunocompromised patient, metastatic ovarian cancer ongoing chemotherapy Patient presents with nausea, vomiting and abdominal pain, noted to have UTI. Admitting CTAP with right renal nonobstructing stable calculus. Follow admitting blood and urine culture. Continue with cefepime. Patient reports improving nausea, vomiting. Advance diet as tolerated. Continue with pain management for low belly pain given history of cancer. Leukopenia, thrombocytopenia: likely secondary to chemotherapy Other chronic medical conditions: Continue with/resume home meds as when able. hx PSVT hypertension, slightly elevated secondary to discomfort COPD, not in acute exacerbation hyperlipidemia, on statin Rx Steroid induced hyperglycemia secondary to Decadron chemotherapy Rx rule out DM, a1c pending as of now. past tobacco abuse Notes For Next Care Provider 60 yo F w/ PMH of PSVT, hypertension, COPD, hypertension, hyperlipidemia, GERD, metastatic ovarian cancer ongoing chemotherapy, RSD, past tobacco abuse presents w/ worsening lower abdominal pain, nausea, vomiting the last few days [employer]. Pt reports good BM. Pt denies chest pain, fever, cough. Admitted for sepsis 2/2 complicated UTI and immunocompromised state. Course complicated by pain. Pain improved with improvement in nausea/vomiting. Start lyrica with improvement in lower abdominal pain. On 09/21/2025 patient medically stable for discharge home. To do: -Incidental Findings: reduced cancer related imaging findings in pelvis compared to prior, right sided small pleural effusion Medication Changes From Visit -see below Admission HPI Per Admitting Provider History obtained from patient and records. Medical history significant for PSVT, hypertension, COPD, hypertension, hyperlipidemia, GERD, metastatic ovarian cancer ongoing chemotherapy, RSD, past tobacco abuse. Recent confinement last month for peritoneal carcinomatosis and malignant right pleural effusion status post thoracenteses. Chemotherapy eventually initiated outpatient for metastatic ovarian cancer. Patient had worsening lower abdominal pain, nausea, vomiting the last few days. Good bowel movement. Denies chest pain. No cough symptoms. Dizziness described as lightheadedness causing her to be short of breath. Medical History as above Surgical History : BTL, cataract surgeries, fingertip amputation Family History : DM, heart disease, brain aneurysm, stroke Personal/Social history : Past tobacco abuse, occasional EtOH intake, retired [employer] employee Discharge Exam Gen: A&O 3 NAD HEENT: NCAT, EOMI, not icteric. External ears normal. No rhinorrhea. Moist mucous membranes. Neck: Supple, full range of motion, no observable masses, No meningeal sign. Lungs: No Respiratory distress. CV: RRR, no edema. Abdomen: Soft, nondistended, No rebound tenderness. MSK: No joint swelling, no redness. Skin: No rashes, petechiae, lesions. Normal color per patient. Neuro: Normal Gait, Grossly intact. Psych: Appropriate for situation. Updated Medication List Medication Instructions Recorded Confirmed Type atorvastatin 40 mg tablet 40 mg PO QAM #30 tabs 01/31/23 09/19/25 Rx albuterol sulfate 90 mcg/actuation 2 puff inhalation Q6H PRN 08/06/25 09/19/25 History aerosol inhaler (Ventolin HFA) cough/sob/wheezing azelastine 137 mcg (0.1 %) nasal 1 spray NA [facility] 08/06/25 09/19/25 History spray fluticasone propionate 50 2 spray [facility] 08/06/25 09/19/25 History mcg/actuation nasal spray,suspension ipratropium 0.5 mg-albuterol 3 mg 3 ml inhalation Q4H PRN 08/06/25 09/19/25 History (2.5 mg base)/3 mL nebulization cough,shortness of breath soln loratadine 10 mg tablet 10 mg PO QAM 08/06/25 09/20/25 History losartan 25 mg tablet 25 mg PO QAM 08/06/25 09/20/25 History montelukast 10 mg tablet 10 mg PO HS 08/06/25 09/20/25 History aspirin 81 mg tablet,delayed 81 mg PO DAILY 09/19/25 09/19/25 History release buspirone 5 mg tablet 5 mg PO [facility] 09/19/25 09/19/25 History desvenlafaxine succinate 25 mg 25 mg PO QAM 09/19/25 09/19/25 History tablet,extended release 24 hr dexamethasone 4 mg tablet 20 mg PO UD 09/19/25 09/19/25 History fluticasone fur. 200 mcg-umeclid 1 inh inhalation QAM 09/20/25 09/20/25 History 62.5 mcg-vilant 25 mcg inhalat.powder (Trelegy Ellipta) ibuprofen 200 mg tablet (Motrin IB) 200 mg PO Q8H PRN Headache 09/20/25 09/20/25 History metoprolol succinate 25 mg 25 mg PO [facility] 09/20/25 09/20/25 History tablet,extended release 24 hr morphine 15 mg immediate release 15 mg PO Q4H PRN Pain, Severe 09/20/25 09/20/25 History tablet olanzapine 5 mg tablet 5 mg PO HS 09/20/25 09/20/25 History pantoprazole 40 mg tablet,delayed 40 mg PO DAILYBB 09/20/25 09/20/25 History release potassium chloride 10 mEq 10 meq PO QAM 09/20/25 09/20/25 History tablet,extended release prochlorperazine maleate 10 mg 10 mg PO Q6H PRN Nausea 09/20/25 09/20/25 History tablet triamcinolone acetonide 0.5 % 1 applic topical [facility] PRN Skin 09/20/25 09/20/25 History topical cream Irritation ciprofloxacin HCl 500 mg tablet 500 mg PO BID 5 days #10 tabs 09/21/25 Rx pregabalin 25 mg capsule 25 mg PO BID 30 days #60 caps 09/21/25 Rx Hospital Stay Data Consultations 09/19/25 22:31 ED Decision to Admit Stat Diagnostic Imagining Performed 09/20/25 00:51 CT Abd and Pelvis [CT abd pelvis IV con only] Stat Pending Results Patient Have Any Pending Studies at Discharge: No Discharge Instructions Given to Patient (Per Discharging Provider) Diagnosis: Chemotherapy Induced Nausea/Vomiting, Cancer Related Pain, complicated UTI, Sepsis Follow Ups: PCP, oncology, palliative care Incidental Findings: reduced cancer related imaging findings in pelvis compared to prior, right sided small pleural effusion 1. Please follow up with PCP, oncology, palliative care. 2. Take pain and symptom medications as prescribed. 3. Could consider aprepitant prophylaxis for chemotherapy induced nausea and vomiting before next cycle of chemotherapy. 4. Stay hydrated! Total Time Total Time Spent Total Time Spent (In Minutes): I spent a total of 35 minutes in direct patient care, including [id number] time with the patient and/or family, reviewing medical records, ordering and reviewing diagnostic tests, and coordinating care with other healthcare providers. This time includes: history taking, physical examination, medical decision making, counseling, ECG interpretation, imaging interpretation, lab interpretation, orders, and education, excluding time spent in the performance of separately billed services.
--- NOTE | 2025-09-21 14:30 | Electrocardiogram Report ---
Test Reason : Blood Pressure : */* mmHG Vent. Rate : 93 BPM Atrial Rate : 93 BPM P-R Int : 146 ms QRS Dur : 116 ms QT Int : 384 ms P-R-T Axes : 44 -24 238 degrees QTcB Int : 477 ms Normal sinus rhythm Abnormal ECG When compared with ECG of 06-Aug-2025 09:50, Premature ventricular complexes are no longer Present T wave inversion now evident in Inferior leads T wave inversion now evident in Anterolateral leads Confirmed by Benigno Avila ([id number]) on 09/21/2025 2:30:19 PM Referred By: REFERRED SELF Confirmed By: Benigno Avila
== END 2025-09-21 12:40 | disposition home or self-care (01) | DRG 871 ==
LOC: ED 19:15 → 2W 23:56 → SUATTDRO 23:56 → 2W 09-20 01:15